=== PATIENT | male | born 1980 | race Caucasian/White ===

== ENCOUNTER 2023-12-28 15:07 | Outpatient (AMB) | payer OTHER, SELFPAY ==
--- NOTE | 2023-12-28 15:19 | A.OFFVISCC_ITS ---
Intake Visit Reasons: Intake HPI HPI Intake: Details: Patient presents for follow up Currently prescribed suboxone 16mg daily [facility] [place] urinary retention scheduled appt at [facility] last physical one year ago Results AMB 14 Panel Urine Drug Screen Urine Marijuana (THC) Negative Last Edit by Sadia Acuña RN on 12/28/23 15:32 Urine Cocaine Negative Last Edit by Sadia Acuña RN on 12/28/23 15:32 Urine Morphine Negative Last Edit by Sadia Acuña RN on 12/28/23 15:32 Urine Methamphetamine Negative Last Edit by Sadia Acuña RN on 12/28/23 15:32 Urine Amphetamine Negative Last Edit by Sadia Acuña RN on 12/28/23 15:32 Urine Benzodiazepine Negative Last Edit by Sadia Acuña RN on 12/28/23 15 :32 Urine Barbiturates Negative Last Edit by Sadia Acuña RN on 12/28/23 15:3 2 Urine Methadone Negative Last Edit by Sadia Acuña RN on 12/28/23 15:32 Urine Buprenorphine Positive Last Edit by Sadia Acuña RN on 12/28/23 15: 32 Urine Tricyclic Antidepressant Positive Last Edit by Sadia Acuña RN on 12/28/23 15:32 Urine MDMA Negative Last Edit by Sadia Acuña RN on 12/28/23 15:32 Urine Oxycodone Negative Last Edit by Sadia Acuña RN on 12/28/23 15:32 Urine Phencyclidine Negative Last Edit by Sadia Acuña RN on 12/28/23 15: 32 Urine Propoxyphene Negative Last Edit by Sadia Acuña RN on 12/28/23 15:3 2
--- NOTE | 2023-12-28 15:19 | MHC.AM.SUB ---
Intake Visit Reasons: Intake HPI HPI Intake: Details: Patient presents for follow up [facility] [place] [facility] scheduled appt at [facility] last physical one year ago Results AMB 14 Panel Urine Drug Screen Urine Marijuana (THC) Negative Last Edit by Sadia Acuña RN on 12/28/23 15:32 Urine Cocaine Negative Last Edit by Sadia Acuña RN on 12/28/23 15:32 Urine Morphine Negative Last Edit by Sadia Acuña RN on 12/28/23 15:32 Urine Methamphetamine Negative Last Edit by Sadia Acuña RN on 12/28/23 15:32 Urine Amphetamine Negative Last Edit by Sadia Acuña RN on 12/28/23 15:32 Urine Benzodiazepine Negative Last Edit by Sadia Acuña RN on 12/28/23 15:32 Urine Barbiturates Negative Last Edit by Sadia Acuña RN on 12/28/23 15:32 Urine Methadone Negative Last Edit by Sadia Acuña RN on 12/28/23 15:32 Urine Buprenorphine Positive Last Edit by Sadia Acuña RN on 12/28/23 15:32 Urine Tricyclic Antidepressant Positive Last Edit by Sadia Acuña RN on 12/28/23 15:32 Urine MDMA Negative Last Edit by Sadia Acuña RN on 12/28/23 15:32 Urine Oxycodone Negative Last Edit by Sadia Acuña RN on 12/28/23 15:32 Urine Phencyclidine Negative Last Edit by Sadia Acuña RN on 12/28/23 15:32 Urine Propoxyphene Negative Last Edit by Sadia Acuña RN on 12/28/23 15:32
== END 2023-12-28 15:41 | disposition home or self-care (01) ==
PROVIDERS: Visit Provider Nurse Practitioner Psychiatric/Mental Health
DX: Z51.81 Encounter for therapeutic drug level monitoring (principal)

== ENCOUNTER → 2023-12-28 15:07 | Outpatient (BNVA) | payer OTHER, SELFPAY | PROVIDERS: Visit Provider Nurse Practitioner Psychiatric/Mental Health | DX: Z51.81 Encounter for therapeutic drug level monitoring (principal); Z79.899 Other long term (current) drug therapy | CPT/HCPCS: 80305 ==

== ENCOUNTER 2024-01-24 15:29 | Outpatient (AMB) | payer OTHER, SELFPAY ==
--- NOTE | 2024-01-24 16:23 | A.OFFVISCC_ITS ---
Intake Visit Reasons: MAT/Sublocade Injection Allergies No Known Allergies Allergy (Verified 12/28/23 15:37) HPI HPI MAT/Sublocade Injection: Details: Patient presents for follow up and 1st Sublocade injection No issues with films Questions answered, risks reviewed Review of Systems Const Reports as per HPI Physical Exam Const General: cooperative, healthy appearing and well groomed Nutritional Appearance: average body habitus Orientation/consciousness: patient oriented x3 Limitations: no limitations Neuro General: patient oriented x3 Office Meds Sublocade 300 mg/1.5 mL solution,extended release subcutaneous syringe Performing Provider: Linda Plata CNP Performing Location: [facility] Administered by: Sadia Acuña RN on 01/24/24 14:00 Dose Route Admin Location Dispensed Lot Number Expiration Date [facility] Pumper Gauger 300 mg subcut RLQ 1.5 mL [id number] 10/20/24 [address]-5 [employer]. Assessment & Plan Assessment & Plan (1) Opioid use disorder, severe, in sustained remission: Code(s): F11.21 - Opioid dependence, in remission Category: Medical Plan: * tolerated injection * follow up 4 weeks Orders: Orders AMB Buprenorphine Injection 01/24/24 F11.90 - Opioid use, unspecified, uncomplicated Medications: Refilled buprenorphine ER (Sublocade) once every 28 days 300 mg (1.5 mL) subcut ONCE 1.5 mL 0RF
== END 2024-01-24 16:26 | disposition home or self-care (01) ==
PROVIDERS: Visit Provider Nurse Practitioner Psychiatric/Mental Health
DX: F11.21 Opioid dependence, in remission (principal)
CPT/HCPCS: 99213

== ENCOUNTER 2024-01-24 15:29 | Outpatient (REF) | payer OTHER, SELFPAY ==
[2024-01-24 17:47] LABS: Alanine Aminotransferase 24 U/L (0-40); Albumin Level 4.5 g/dL (3.5-5.0); Alkaline Phosphatase 105 U/L (39-117); Anion Gap 12 (12-20); Aspartate Amino Transferase 21 U/L (5-37); Bilirubin Direct 0.1 mg/dL (0.0-0.5); Bilirubin Total 0.4 mg/dL (0.0-1.0); Blood Urea Nitrogen 20 mg/dL (9-16); Calcium 9.6 mg/dL (8.4-10.2); Carbon Dioxide 29 mmol/L (22-29); Chloride 104 mmol/L (96-108); Estimated Glomerular Filt Rate > 60; Glucose Random 95 mg/dL (60-115); Potassium 4.6 mmol/L (3.3-5.1); Sodium 140 mmol/L (135-145); Total Protein 7.4 g/dL (6.5-8.0)
[2024-01-25 08:12] LABS: HIV AB/AG Nonreactive (Nonreactive); HIV Num 1 0.06 S/CO (0.00-0.99)
== END 2024-01-24 15:30 | disposition home or self-care (01) ==
LOC: HO.LAB 15:29
PROVIDERS: Visit Provider Nurse Practitioner Psychiatric/Mental Health
DX: F11.21 Opioid dependence, in remission (principal); Z51.81 Encounter for therapeutic drug level monitoring; Z79.899 Other long term (current) drug therapy
CPT/HCPCS: 36415; 80053; 82248; 87389; 96372; Q9992

== ENCOUNTER 2024-02-21 15:08 | Outpatient (AMB) | payer OTHER, SELFPAY ==
--- NOTE | 2024-02-23 08:50 | AM.OFFVISNUR ---
Intake Visit Reasons: Sublocade Injection Allergies No Known Allergies Allergy (Verified 12/28/23 15:37) Nursing Note Patient Presents for sublocade Injection. Current Dose 300mg . Given in the with LUQ no noted or stated complication. Denies any issues with previous injection. Denies symptoms, and denies any break through cravings. Last appt with provider was , will follow up with RN in 4 weeks for injection. Will need to see provider for check in April. Office Meds Sublocade 300 mg/1.5 mL solution,extended release subcutaneous syringe Performing Provider: Linda Plata CNP Performing Location: [facility] Administered by: Sadia Acuña RN on 02/21/24 09:16 Dose Route Admin Location Dispensed Lot Number Expiration Date [facility] Multimedia Artist 300 mg subcut LUQ 1.5 mL [id number] 02/19/25 [address]-7 [employer] Assessment & Plan Assessment & Plan Orders: Orders AMB Buprenorphine Injection 02/21/24 F11.21 - Opioid dependence, in remission Medications: New Sublocade ER (buprenorphine) 300 mg (1.5 mL) subcut ONCE 1.5 mL 0RF NS F11.21 - Opioid dependence, in remission Refilled buprenorphine ER (Sublocade) once every 28 days 300 mg (1.5 mL) subcut ONCE 1.5 mL 0RF
== END 2024-02-21 16:20 | disposition home or self-care (01) ==
DX: F11.21 Opioid dependence, in remission (principal)

== ENCOUNTER → 2024-02-21 15:08 | Outpatient (BNVA) | payer OTHER, SELFPAY | DX: F11.21 Opioid dependence, in remission (principal) | CPT/HCPCS: 96372; Q9992 ==

== ENCOUNTER 2024-03-20 15:31 | Outpatient (AMB) | payer OTHER, SELFPAY ==
--- NOTE | 2024-03-20 16:20 | AM.OFFVISNUR ---
Intake Visit Reasons: Sublocade Injection Allergies No Known Allergies Allergy (Verified 12/28/23 15:37) Nursing Note Patient Presents for sublocade Injection. Current Dose 300 mg. Given in the RLQ with no noted or stated complications. Denies any issues with previous injection. Denies symptoms, and denies any break through cravings. Will follow up with RN in 4 weeks for injection. Patient requested Brixadi, med ordered by provider and will hopefully recieve it at next visit, if not he will get sublocade. Office Meds Sublocade 300 mg/1.5 mL solution,extended release subcutaneous syringe Performing Provider: Linda Plata CNP Performing Location: [facility] Administered by: Sadia Acuña RN on 03/22/24 13:45 Dose Route Admin Location Dispensed Lot Number Expiration Date [facility] Poultry Farmer Meat 300 mg subcut RLQ 1.5 mL [id number] 02/19/25 [address]-6 [employer]. Assessment & Plan Assessment & Plan Orders: Orders AMB Buprenorphine Injection 03/20/24 F11.90 - Opioid use, unspecified, uncomplicated Medications: New Sublocade ER (buprenorphine) 300 mg (1.5 mL) subcut ONCE 1.5 mL 0RF NS F11.90 - Opioid use, unspecified, uncomplicated Refilled buprenorphine ER (Sublocade) once every 28 days 300 mg (1.5 mL) subcut ONCE 1.5 mL 0RF
== END 2024-03-20 16:18 | disposition home or self-care (01) ==
LOC: HO.HCC 15:32
DX: F11.90 Opioid use, unspecified, uncomplicated (principal)

== ENCOUNTER → 2024-03-20 15:31 | Outpatient (BNVA) | payer OTHER, SELFPAY | DX: F11.90 Opioid use, unspecified, uncomplicated (principal) | CPT/HCPCS: 96372; Q9992 ==

== ENCOUNTER 2024-04-17 14:59 | Outpatient (AMB) | payer OTHER, SELFPAY ==
--- NOTE | 2024-04-17 15:07 | AM.OFFVISNUR ---
Intake Visit Reasons: Sublocade Injection Allergies No Known Allergies Allergy (Verified 12/28/23 15:37) Nursing Note Patient Presents for Sublocade Injection. Current Dose 300mg . Given in the LLQ with no noted or stated complications. Denies any issues with previous injection. Denies symptoms, and denies any break through cravings. Will follow up with RN in 4 weeks for injection. Office Meds Sublocade 300 mg/1.5 mL solution,extended release subcutaneous syringe Performing Provider: Linda Plata CNP Performing Location: [facility] Administered by: Sadia Acuña RN on 04/17/24 15:07 Dose Route Admin Location Dispensed Lot Number Expiration Date [facility] Licensing [employer] 300 mg subcut LLQ 1.5 mL [id number] 03/22/25 [address]-6 [employer]. Assessment & Plan Assessment & Plan Orders: Orders AMB Buprenorphine Injection - Patient Supplied 04/17/24 F11.90 - Opioid use, unspecified, uncomplicated Medications: Refilled buprenorphine ER (Sublocade) once every 28 days 300 mg (1.5 mL) subcut ONCE 1.5 mL 0RF
== END 2024-04-17 16:06 | disposition home or self-care (01) ==
DX: F11.90 Opioid use, unspecified, uncomplicated (principal)

== ENCOUNTER → 2024-04-17 14:59 | Outpatient (BNVA) | payer OTHER, SELFPAY | DX: F11.90 Opioid use, unspecified, uncomplicated (principal) | CPT/HCPCS: 96372; Q9992 ==

== ENCOUNTER 2024-05-16 09:26 | Outpatient (AMB) | payer OTHER, SELFPAY ==
--- NOTE | 2024-05-16 09:33 | AM.OFFVISNUR ---
Intake Visit Reasons: Sublocade Injection Allergies No Known Allergies Allergy (Verified 12/28/23 15:37) Nursing Note Patient Presents for sublocade Injection. He arrived alert and oriented x4, in good spirits, smiling when talking in clear/full sentences. Current Dose 300 mg. Given in the LLQ with no noted or stated complications. Denies any issues with previous injection. Denies symptoms, and denies any break through cravings. Will follow up with RN in 4 weeks for injection. Will need to see provider for check in next visit in May, he verbally understands this. Follow up to workload on 05/14, regarding Brixadi transition. Patient states he was able to get the name and number of insurance law specialist and left a message on their phone. He will keep our office updated. Office Meds Sublocade 300 mg/1.5 mL solution,extended release subcutaneous syringe Performing Provider: Linad Plata CNP Performing Location: [facility] Administered by: Sadia Acuña RN on 05/16/24 10:11 Dose Route Admin Location Dispensed Lot Number Expiration Date [facility] Dining Room Server 300 mg subcut LLQ 1.5 mL [id number] 03/22/25 [address]-5 [employer] Assessment & Plan Assessment & Plan Orders: Orders AMB Buprenorphine Injection Today F11.90 - Opioid use, unspecified, uncomplicated Medications: New Sublocade ER (buprenorphine) 300 mg (1.5 mL) subcut ONCE 1.5 mL 0RF NS F11.90 - Opioid use, unspecified, uncomplicated
== END 2024-05-16 09:42 | disposition home or self-care (01) ==
DX: F11.90 Opioid use, unspecified, uncomplicated (principal)

== ENCOUNTER → 2024-05-16 09:26 | Outpatient (BNVA) | payer OTHER, SELFPAY | DX: F11.90 Opioid use, unspecified, uncomplicated (principal); Z79.899 Other long term (current) drug therapy | CPT/HCPCS: 96372; Q9992 ==

== ENCOUNTER 2024-06-12 14:01 | Outpatient (AMB) | payer OTHER, SELFPAY ==
--- NOTE | 2024-06-12 14:33 | A.OFFVISCC_ITS ---
Vital Signs 06/12/24 14:42 BP 100/70 Blood Pressure Location Lt radial Position Sitting Respiration 19 Pulse 88 Pulse Oximetry (%) 98 Oxygen Delivery Method Room Air Intake Visit Reasons: MAT/ Sublocade Injection Allergies No Known Allergies Allergy (Verified 12/28/23 15:37) HPI HPI MAT/ Sublocade Injection: Details: constipated has been taking laxative senna, miralax, colace, MOM, dulcolax once a week BMs taking Dulcaloax Office Meds Sublocade 100 mg/0.5 mL solution,extended release subcutaneous syringe Performing Provider: Linda Plata CNP Performing Location: [facility] Administered by: Sadia Acuña RN on 06/12/24 14:43 Dose Route Admin Location Dispensed Lot Number Expiration Date [facility] Plant Maintenance Supervisor 100 mg subcut LLQ 0.5 mL [id number] 06/22/25 [address]-2 [employer] Assessment & Plan Assessment & Plan Orders: Orders AMB Buprenorphine Injection Today F11.90 - Opioid use, unspecified, uncomplicat ed
--- NOTE | 2024-06-12 14:33 | MHC.AM.SUB ---
Vital Signs 06/12/24 14:42 BP 100/70 Blood Pressure Location Lt radial Position Sitting Respiration 19 Pulse 88 Pulse Oximetry (%) 98 Oxygen Delivery Method Room Air Intake Visit Reasons: MAT/ Sublocade Injection Allergies No Known Allergies Allergy (Verified 12/28/23 15:37) HPI HPI MAT/ Sublocade Injection: Details: constipated has been taking laxative senna, miralax, colace, MOM, dulcolax once a week BMs taking Dulcaloax Physical Exam Vital Signs: Last Vital Signs Pulse 88 06/12/24 14:42 Resp 19 06/12/24 14:42 BP 100/70 06/12/24 14:42 Pulse Ox 98 06/12/24 14:42 Oxygen Delivery Method Room Air 06/12/24 14:42 Office Meds Sublocade 100 mg/0.5 mL solution,extended release subcutaneous syringe Performing Provider: Linda Plata CNP Performing Location: [facility] Administered by: Sadia Acuña RN on 06/12/24 14:43 Dose Route Admin Location Dispensed Lot Number Expiration Date [facility] Surgeon Partner 100 mg subcut LLQ 0.5 mL [id number] 06/22/25 [address]-3 [employer] Assessment & Plan Assessment & Plan Orders: Orders AMB Buprenorphine Injection 06/12/24 F11.90 - Opioid use, unspecified, uncomplicated
[2024-06-12 14:42] VITALS: BP 100/70; PULSE 88; RESP 19; O2SAT 98
== END 2024-06-12 15:16 | disposition home or self-care (01) ==
PROVIDERS: Visit Provider Nurse Practitioner Psychiatric/Mental Health
DX: F11.90 Opioid use, unspecified, uncomplicated (principal)

== ENCOUNTER → 2024-06-12 14:01 | Outpatient (BNVA) | payer OTHER, SELFPAY | PROVIDERS: Visit Provider Nurse Practitioner Psychiatric/Mental Health | DX: F11.21 Opioid dependence, in remission (principal) | CPT/HCPCS: 96372; Q9991 ==

== ENCOUNTER 2024-07-10 15:06 | Outpatient (AMB) | payer OTHER, SELFPAY ==
[2024-07-10 09:12] VITALS: BP 140/80; PULSE 80; O2SAT 98
--- OUTSIDE RECORDS SUMMARY | 2024-07-10 15:14 | XMS_ITS | Data Portability ---
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 ? ? ?He is happy with that plan. ? ? ?We will see him back at that point. ? ? ?He is really doing well. ? ? ?He is off the pain medications. [email or web address] Not available 11/13/2014 11:41:50 12/11/2014 12/11/2014 We will see how he does. ? ? ?He is going to start therapy to work on motion. ? ? ?I am going to see him back after therapy. ? ? ?He is happy with that plan. ? ? ?Hopefully his motion will improve. [email or web address] Not available 12/14/2014 10:50:31 03/05/2015 03/05/2015 I think he just needs to work with therapy with maybe an injection down the road. ? ? ?He will do therapy and see him back in about six weeks and hopefully get him back to work in two months. ? ? ?Otherwise I am happy with how he is doing and he is happy as well. [email or web address] Not available 03/06/2015 09:56:16 05/20/2015 05/20/2015 At this point he is doing well. ? ? ?We are going to get him back to full duty shortly. ? ? ?I want him to do a little physical therapy first to get his motion better. ? ? ?He has a little bit of a frozen shoulder since the time of surgery. ? ? ?He is going to work on that now at this point. [email or web address] Not available 05/20/2015 15:47:37 06/19/2015 06/19/2015 PLAN: At this point I still want him to go back to full duty. He wants to do that. We will do this on Monday. We will do an MRI to make sure there is no rotator cuff tear. He may just need an injection. We will see him back or I will give him a call. In terms of the pec repair, he is doing extremely well. He is happy with how he is doing from the pec repair. We spent about 15 minutes together with most of it in counseling. ? ? ? [email or web address] Not available 06/25/2015 10:19:02 Plan of Treatment Reminders Order Date Submit Date Provider Last Modified By Organization Details Last Modified Time Details Appointments None recorded. Lab None recorded. Referral physical therapist referral - S/P R pectoralis major repair 10/28/14R Frozen Shoulder 2014 015 [email or web address] Not available 5 05:38:35 physical therapist referral - S/P R pectoralis major repair 10/28/142014 015 [email or web address] Not available 5 09:56:16 physical therapist referral - S/P R pectoralis major repair 10/28/142014 015 [email or web address] Not available 5 10:50:31 Procedures None recorded. Surgeries None recorded. Imaging MRI, shoulder - Right Shoulder MRIr/o R Rotator Cuff TearPlease call patient to schedule, thanks! APPROVED PER ONDINA BOSTON 2015 016 ATHENAFAX [facility]. - Mri, [address] [place] [address], [place], [address], 6 14:41:28 x-ray, shoulder - AP/ GRASHEY/AX ILLARY (if pt unable to do axillary please do [facility]) 2014 015 [email or web address] Not available 5 11:41:50 Medication Orders oxycodone 5 mg tablet 2014 015 [id number], [address], [place], [id number], 12:43:50 Patient TargetsNo targets recorded. Patient InstructionsNo instructions recorded. Reason for Referral S/P R pectoralis major repai r 10/28/14 Referring Physician: Ck Arrieta, Orthopedic Surgery, Encounter Date: 12/11/2014 S/P R pectoralis major repai r 10/28/14 Referring Physician: Ck Arrieta, Orthopedic Surgery, Encounter Date: 03/05/2015 S/P R pectoralis major repai r 10/28/14R Frozen Shoulder Referring Physician: Ck Arrieta, Orthopedic Surgery, Encounter Date: 05/20/2015 Results Created Date Observation Date Name Description Value Unit Range Abnormal Flag Note LastModifiedBy Organization Detail LastModifiedTime 10/29/19 15 10/28/2014 mrsa scree n, PCR @MRSA/mssa by PCR MRSA/M SSA SCREEN RESULT NEGATI VE MRSA AND MSSA SCREEN BY PCR normal Not Available [facility] (Lab) [address] [place], [address], 10/28/2014 08:56:24 10/24/19 15 10/20/2014 MRI, shoul alice No observ ation record ed. [email or web address] Not Available 10/23 17:49:13 10/29/19 15 helder ble shoul alice right No observ ation record ed. [address], [address] 04/29/2015 04:01:03 10/29/19 15 10/28/2014 helder ble shoul alice right Fin al Report EXAM#: [id number] PROCED URE: OR 0032 PORTAB LE SHOULD ER RIGHT Oct 28 2014 12:00P M CLINIC [facility] INDICA TION: POST OP AP R SHOULD ER RESULT S: Compar isons: None FINDIN GS: Suture anchor placem ent within the proxim al humeru s is withou t immedi ate hardwa re compli cation s. Post-s urgica l soft tissue change s are presen t. . . . . \E\ Report ed by : JUNO LANGSTON M.D. On: Oct 28 2014 12:01P Signed by: JUNO LANGSTON M.D. On: Oct 28 2014 12:01P [facility] [address] [place], [address], 04/29/2015 04:01:03 10/29/19 15 helder ble shoul alice right No observ ation record ed. [address], [address] 04/29/2015 04:01:03 Result Notes None recorded. Problems Name Problem SNOMED Code Status Onset Date Resolution Date Notes Provider Name and Address Organization Details Recorded Time Rupture of pectoralis major muscle 728970581 Active Jennifer Lzoa [facility] 5 10:50:31 Shoulder pain 68109665 Active Jennifer devi [facility] 6 10:19:02 Strain of tendon of upper arm 081577960 Active Jennifer Loza [facility] 5 09:56:16 Problem Notes None recorded. Procedures Surgical History Date Name Laterality Status Provider Name and Address Organization Details Recorded Time 10/29/19 15 Orthopaedic Surgery completed Suly Dickens [facility] 12/16/2014 11:51:43 Imaging Results Imaging Date Name Status LastModified by Organiz ation Details LastModified Time 10/20/2014 MRI, shoulder completed [email or web address] Information not available 10/23/2014 17:49:13 10/28/2014 portable shoulder right completed [address], [address] 04/29/2015 04:01:03 10/28/2014 portable shoulder right completed [facility] [address] [place], [address], 04/29/2015 04:01:03 10/28/2014 portable shoulder right completed [address], [address] 04/29/2015 04:01:03 Procedure Notes None recorded. Medical Equipment None Reported. Allergies No known drug allergies Medications Name Sig Start Date Stop Date Status Note LastModified by Organization Details LastModified Time methocarbamo l 500 mg tablet TAKE ONE TABLET BY MOUTH UP TO FOUR TIMES DAILY NEEDED FOR SPASM active Not Available Not Available No t Available clonidine HCl 0.1 mg tablet TAKE 1 TABLET TWICE DAILY. active Not Available Not Available No t Available trazodone 50 mg tablet *WAITING ON PA FROM *TAKE 1 TO 2 TABLETS AT BEDTIME NEEDED FOR INSOMNIA. active Not Available Not Available No t Available doxepin 25 mg capsule TAKE 2 CAPS BY MOUTH AT BEDTIME FOR INSOMNIA active Not Available Not Available No t Available cephalexin 250 mg capsule TAKE ONE CAPSULE BY MOUTH EVERY 6 HOURS FOR 10 DAYS active Not Available Not Available No t Available hydrocodone 5 mg-acetamino phen 325 mg tablet TAKE 1 TABLET BY MOUTH EVERY 6-8 HOURS active Not Available Not Available No t Available olanzapine 5 mg tablet TAKE 1 TABLET DAILY. active Not Available Not Available No t Available acetaminophe n 300 mg-codeine 30 mg tablet TAKE 1-2 TABLET EVERY 6 HOURS NEEDED FOR MODERATE TO SEVERE PAIN active Not Available Not Available Not Available sulfamethoxa zole 800 mg-trimethop rim 160 mg tablet TAKE 1 TABLET EVERY 12 HOURS FOR 10 DAYS active Not Available Not Available No t Available tramadol 50 mg tablet TAKE 1-2 TABLETS BY MOUTHAT BEDTIME NEEDED FOR PAIN active Not Available Not Available No t Available oxycodone-ac etaminophen 5 mg-325 mg tablet take 1 to 2 tablets by mouth every 4 to 6 hours if needed for saulo... (REFER TO PRESCRIPTIO N NOTES). active Not Available Not Available No t Available Motrin 800 mg tablet Take 1 tablet 3 times a day by oral route. active Not Available Not Available No t Available hydromorphon e 2 mg tablet take 1-2tabs PO q4-6hours prn pain active Not Available Not Available No t Available trazodone 100 mg tablet TAKE 1 TABLET BY MOUTH AT BEDTIME active Not Available Not Available No t Available meclizine 25 mg tablet TAKE 1 TABLET 3 TIMES DAILY NEEDED. active Not Available Not Available N ot Available nicotine 21 mg/24 hr daily transdermal patch APPLY 1 PATCH DAILY DIRECTED active Not Available Not Available Not Available omeprazole 20 mg capsule,radha yed release TAKE 2 CAPSULES BY MOUTH ONCE DAILY DIRECTED active Not Available Not Available No t Available diclofenac sodium 75 mg tablet,delay ed release TAKE 1 TABLET BY MOUTH TWICE A DAY active Not Available Not Available No t Available ibuprofen 600 mg tablet TAKE 1 TABLET BY MOUTH EVERY 6 HOURS NEEDED FOR PAIN WITH FOOD active Not Available Not Available No t Available oxycodone-ac etaminophen 7.5 mg-325 mg tablet TAKE 1 TABLET EVERY 6 HOURS NEEDED FOR PAIN active Not Available Not Available No t Available zolpidem 10 mg tablet TAKE 1 TABLET AT BEDTIME NEEDED active Not Available Not Available No t Available propranolol 20 mg tablet TAKE 1 TABLET THREE TIMES A DAY active Not Available Not Available No t Available ketoconazole 2 % topical cream APPLY TO AFFECTED AREA TWICE A DAY UNTIL RESOLVED active Not Available Not Available No t Available fluoxetine 20 mg capsule TAKE ONE CAPSULE BY MOUTH TWICE A DAY active Not Available Not Available No t Available diazepam 5 mg tablet TAKE ONE TABLET BY MOUTH EVERY 8 HOURS active Not Available Not Available No t Available amoxicillin 875 mg-potassium clavulanate 125 mg tablet TAKE 1 TAB BY MOUTH 2 TIMES A DAY active Not Available Not Available Not Available nabumetone 500 mg tablet TAKE 1 OR 2 TABLETS BY MOUTH EVERY 12 HOURS HOURS AFTER MEALS NEEDED PAIN active Not Available Not Available Not Available nicotine 7 mg/24 hr daily transdermal patch APPLY 1 PATCH DAILY DIRECTED active Not Available Not Available Not Available oxycodone 5 mg tablet TAKE 1 TABLET BY MOUTH EVERY 12 HOURS NEEDED active Not Available Not Available No t Available duloxetine 30 mg capsule,radha yed release TAKE ONE CAPSULE BY MOUTH IN THE EVENING active Not Available Not Available Not Available duloxetine 60 mg capsule,radha yed release TAKE 1 CAPSULE DAILY. active Not Available Not Available No t Available Aleve active Not Available Not Availa ble Not Available clonidine active Not Available Not Julita ilable Not Available Percocet active Not Available Not Avai lable Not Available Prilosec active Not Available Not Avai lable Not Available Cymbalta active Not Available Not Avai lable Not Available ProAir HFA 90 mcg/actuatio n aerosol inhaler INHALE 2 PUFFS EVERY 4 HOURS NEEDED FOR COUGH AND WHEEZE. active Not Available Not Available No t Available Voltaren 1 % topical gel APPLY TO AFFECTED AREAS SPARINGLY ONCE A DAY active Not Available Not Available N ot Available Vitals Date Recorded Body height Body mass index (BMI) Body weight Provider Name and Address Organization Details Last Updated DateTime 11/13/2014 175.26 cm 23.6 kg/m2 68698.7792 g Suly Dickens [facility] 11/13/2014 10:34:15 Date Recorded Body height Body mass index (BMI) Body weight Provider Name and Address Organization Details Last Updated DateTime 12/11/2014 175.26 cm 23.6 kg/m2 06631.7792 g Ryan Dickey [facility] 12/11/2014 12:59:42 Date Recorded Body height Body mass index (BMI) Body weight Provider Name and Address Organization Details Last Updated DateTime 03/05/2015 175.26 cm 21.4 kg/m2 60265.21521 g Prosper Solis [facility] 03/05/2015 12:43:50 Date Recorded Body weight Body mass index (BMI) Body height Provider Name and Address Organization Details Last Updated DateTime 05/20/2015 85473.59845 g 25.8 kg/m2 175.26 cm [facility] 05/20/2015 09:17:54 Date Recorded Body mass index (BMI) Body weight Body height Provider Name and Address Organization Details Last Updated DateTime 06/19/2015 25.8 kg/m2 65608.09991 g 175.26 cm Ryan [facility] 06/19/2015 11:48:21 Social History Question Answer Notes LastModified by Organizat ion Details LastModified Time Tobacco Smoking Status Current [facility] 10/23/2014 17:10:13 Auto Related Injury? 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 No Information not available 03/05/2015 Work Related Injury? Yes Information not available 03/05/2015 Sex: Unknown Functional Status Question Answer Note LastModified by Organization D etails LastModified Time What is your exercise level? None Information not available 03/05/2015 Mental Status None recorded. Family History Nothing Reported. Medical History Condition Response Blood Clots / Phlebitis N HIV or AIDS N Heart Problems N Depression or Anxiety Y High Blood Pressure N Irregular Heartbeat N Emphysema / Chronic Bronchitis N Any Other Significant Medical Issues N Reaction to General/Local Anesthesia N Weight Gain / Loss N Hepatitis / Jaundice Y Kidney / Bladder Infections N Diabetes N Bleeding Disorder N Hearing Loss N Angina, Heart Failure or Attack N Night Sweats N Seizures / Epilepsy N Osteoarthritis / Rheumatoid arthritis / Other N Cancer N Stroke N Chemical Dependency / Alcoholism N Ulcer / Stomach Bleeding / Indigestion N Visual Loss or Glaucoma N Psoriasis / Skin Rash N Thyroid Disorder N Heart Disease N Asthma / Shortness of Breath / 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 Pulmonary Embolism N Past Encounters Encounter ID Performer Location Encounter Start Date Encounter Closed Date Diagnosis/Indication Diagnosis SNOMED-CT Code Diagnosis ICD10 Code Diagnosis Note [id number] Iona Aguirre [facility] [address] [place] [id number] 10/23/2014 16:36:01 10/23/2014 17:42:38 Rupture of pectoralis major muscle [id number] [facility] [address] [place] [phone] 11/13/2014 09:57:50 11/13/2014 11:27:50 Shoulder pain 40920779 Rupture of pectoralis major muscle 895949435 [id number] Prosper Solis [facility] Office [address] [place] [id number] 12/11/2014 12:53:08 12/11/2014 13:16:26 Rupture of pectoralis major muscle 600909064 [id number] CK ARRIETA MD [facility] [address] [place] [id number] 03/05/2015 12:28:54 03/05/2015 13:10:50 Shoulder pain 70484040 M25.511 Strain of tendon of upper arm 612999260 S46.811D [id number] CK ARRIETA MD [facility] [address] [place] [id number] 05/20/2015 09:06:10 05/20/2015 09:54:16 Shoulder pain 60550160 M25.511 [id number] CK ARRIETA MD [facility] Office [address] [place] [address] [address] [place] [address] 06/19/2015 11:25:26 06/19/2015 12:23:36 Shoulder pain 15303160 M25.511 Health Concerns Section Related Observation LastModified by Organization Detai ls LastModified Time None Recorded Concern Status LastModified by Organization Details LastModified Time None Recorded Advance Directives Directive None Recorded Payers Encounter Date Sequence Insurance Name Policy Number Policy Gomes Covered Member ID Gomes Member ID Guarantor Name 11/13/2014 [employer] 12/11/2014 [employer] 03/05/2015 [employer] 05/20/2015 [employer] - [facility] [employer] 06/19/2015 [employer] - [facility] [employer] Notes Date Note Type Note Provider Name and Address Organization Details Recorded Time 11/13/2014 text/html HPI He is status post a pectoralis major repair. He is doing great.? CK ARRIETA MD [address] [place] [address], [phone], [facility] 11/13/2014 12:55:00 12/11/2014 text/html HPI He is six weeks out from a pectoralis major repair. He is doing okay. He is in a little more pain than I would like.? CK ARRIETA MD [address] [place] [address], [phone], [facility] 12/16/2014 11:03:45 03/05/2015 text/html HPI He is status post a pectoralis major repair in October. His pectoralis repair looks great. He is still having some pain posteriorly which I think is from the retractors. He has not been able to do therapy and he is stiff, so I think he essentially has some mild frozen shoulder.? CK ARRIETA MD [address] [place] [address], [phone], [facility] 03/09/2015 08:50:38 05/20/2015 text/html HPI The patient had a pectoralis major repair back in October. He is doing great.? CK ARRIETA MD [address] [place] [address], [phone], [facility] 05/21/2015 05:41:23 06/19/2015 text/html HPI HISTORY: The patient is well known to me. I did a pectoralis major repair on him about a year ago. He has done really well from that but now has a new injury. It just started a few days ago at work. It sounds like impingement. He has some pain in his shoulder. It is getting a little bit better. It is not related to the pectoralis major issue. He feels like it has always been there from the original injury and just flared up recently. That is probably the case. But we have to rule out things like rotator cuff injury because he did have a big injury initially.? CK ARRIETA MD [address] [place] [address], [phone], [facility] 06/25/2015 10:29:31
--- OUTSIDE RECORDS SUMMARY | 2024-07-10 15:14 | XMS_ITS | Clinical Summary ---
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 cloNIDine (CATAPRES) 0.2 mg tablet Take 0.2 mg by mouth 2 times a day. Active busPIRone (BUSPAR) 10 mg tablet Take 10 mg by mouth 3 times a day. 2 Active albuterol (PROAIR HFA,VENTOLIN HFA) 90 mcg inhaler INHALE 2 PUFFS BY MOUTH EVERY 6 HOURS NEEDED FOR WHEEZE/SHORTNESS OF BREATH. SCHEDULE MD APPT 18 g 2 3 Active omeprazole (PriLOSEC) 40 mg capsule Take 1 capsule (40 mg total) by mouth once a day. 90 capsule 3 4 Active amitriptyline (ELAVIL) 150 mg tablet Take 1 tablet (150 mg total) by mouth nightly. 90 tablet 4 Active tamsulosin (FLOMAX) 0.4 mg capsule TAKE 1 CAPSULE (0.4 MG TOTAL) BY MOUTH EVERY DAY 90 capsule 4 Active buprenorphine- naloxone (SUBOXONE) 8-[address] 1 Film (8 mg of buprenorphine total) under the tongue every 12 hours for 28 days. 56 Film 4 Active atorvastatin (LIPITOR) 40 mg tablet TAKE 1 TABLET BY MOUTH EVERY DAY AT NIGHT 90 tablet 4 Active Active Problems Patient Care Coordination No te Formatting of this note migh t be different from the original. MAT CC Note TOMASZ 11/08/23 UDS: 11/08/23 Pending: none CB PREFERS TO FOLLOW Problem Noted Date Diagnosed Date Other hyperlipidemia 02/01/2022 Fatigue 12/01/2021 Overview (12/01/2021): C/o fatigue since sobriety 03/23/19. Feels tired throughout the day. Wakes unrefreshed, Up at 4:30 am for work. Has MICHELLE. Didn't tolerate CPAP. Has fallen asleep while driving on 1 occasion this week. Has not bee sleeping well. Brother .. Assessment & Plan (12/01/2021 12:23 PM EDT): ECG NSR, vent rate 68, No ST or T changes. Likely d/t untreated MICHELLE. Discussed effects untreated MICHELLE. Advised Cannot drive until evaluation/treatment. Need for tetanus booster 12/01/2021 Preventative health care 12/01/2021 Complex sleep apnea syndrome 11/25/2021 Hypersomnia 11/25/2021 Overview (11/25/2021): Concerning degree of daytime sleepiness Causes: Insufficient total sleep time on work days Untreated sleep disordered breathing Sedating side effects of medications prescribed for management of anxiety Assessment & Plan (11/25/2021 4:35 PM EDT): Concerning degree of daytime sleepiness Causes: Insufficient total sleep time on work days Untreated sleep disordered breathing Sedating side effects of medications prescribed for management of anxiety Reviewed risks of drowsy driving and interaction between suboxone/benzos/gabapentin; Reviewed the timing of his meds relative to sleep wake schedule. Ideally clonidine, and sedating meds in the evening and not in the morning. One can habituate to the sedating side effects of suboxone but the changes in breathing persist. Try to increase total sleep time, ?do paper work in evening rather than having to arrive at work an hour earlier. Reviewed risks of drowsy driving, should not drive if sleepy or sedated from med. MICHELLE (obstructive sleep apnea) 11/11/2021 Overview (04/30/2022): PSG [place] 06/20/2012 (wt 210 lbs) Mild AHI 8, RDI 11, 86% CPAP titration 08/01/2012 CPAP 5, Quattro FFM, +central apnea on CPAP Didn't tolerate HST 11/29/2021 (wt 198 lbs; on clonazepam, gabapentin, clonidine, suboxone) moderate, AHI 22, 79% Airsense-11 Auto-CPAP 6-14, EPR 2, N30i nasal mask, [facility] (requested urgent set up) 02/2022; try N30 6-9.8, EPR 2 04/2022: not compliant, anxious, mask fitting Assessment & Plan (04/30/2022 6:25 PM EST): Moderate MICHELLE, AHI 22, 79%; effectively treated when he wears CPAP and provides benefit. Barrier to compliance: anxiety;insomnia. Reviewed desensitizations; sent rx for other mask options/fitting. Would continue CPAP at current settings. Smoking cessation. [employer] documentation. Assessment & Plan (03/02/2022 8:11 PM EDT): Moderate MICHELLE, AHI 22 with oxygen desaturation to a jo of 79%; reviewed sleep study, current compliance data, and the operation/maintenance of the equipment (2021, 216 hours) in detail. Effectively treated when he wears it. The first 21 nights were excellent and no signs of central apnea. Barriers to compliance: mask; pressure; so I adjusted settings to 6-9.8, EPR 2; adjusted climate settings; contacted [facility] for mask fitting. I'm impressed by his use/benefit/symptomatic improvement over the first 21 nights; suspect seasonal changes in humidity, anxiety/motivation are surmountable barriers to compliance. He is willing to continue CPAP. Reviewed [employer] documentation Assessment & Plan (12/01/2021 12:09 PM EDT): Has daytime drowsiness, Referred to Pulmonary for re-eval.Discussed effects of untreated MICHELLE, including heart disease Stressed the importance of treatment. Assessment & Plan (11/25/2021 4:02 PM EDT): High clinical suspicion for MICHELLE, also at risk for central/complex sleep apnea given suboxone. Clonazepam can exacerbate obstructive events, gabapentin can contribute to to hypoventilation and suboxone can cause central/complex sleep apnea. Excessive daytime sleepiness likely due to a combination of insufficient sleep time on work days, untreated sleep disordered breathing and sedating side effects from several of the meds prescribed for anxiety. He seemed fairly medicated today. Reviewed pathophysiology of obstructive and central apnea secondary to opioids, diagnostic and treatment options. Ordered type III limited channel home sleep study for night of 11/29/2021 through [employer]. He agrees to proceed, submitted prior authorization and reviewed process. Will start with CPAP but he may need ASV. Encouraged him to increase sleep time, avoid screen use at night. Cyst of skin 03/23/2021 Assessment & Plan (03/23/2021 11:31 AM EDT): Difficult to assess the. The cyst appears to be pea-sized and light-colored. There are no signs of acute infection at this time. The cyst has been present for over a year and is not draining on its own. Advised patient he will likely require incision and drainage. 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 He will call sooner for any acute worsening. Cigarette nicotine dependence without complicati on 03/23/2019 Assessment & Plan (12/01/2021 1:23 PM EDT): Recommend smoking cessation. Reviewed smoking cessation aides. Assessment & Plan (03/26/2019 11:33 AM EST): Patient is a pack per day smoker of cigarettes. Smoking cessation encouraged. Nicotine patch ordered while admitted. Assessment & Plan (03/23/2019 7:58 AM EDT): Patient is a pack per day smoker of cigarettes. - Smoking cessation encouraged - Nicotine patch ordered while admitted Polysubstance dependence inc luding opioid type drug, episodic abuse 03/23/2019 Overview (12/01/2021): H/o IV heroin use disorder severe , crack cocaine use disorder severe, generalized anxiety disorder, question of depression. Currently working with [facility] at [facility] in [place], [place]. In remission on suboxone. Assessment & Plan (04/25/2019 11:12 AM EST): Doing well on Suboxone. He will continue to follow-up with the clinic here on the current dosage Assessment & Plan (04/05/2019 11:21 AM EST): Suboxone to be started in the near future. He feels that he is in a safe place currently and as long as that he is with his father that he is unlikely to use. He would like to stay out of the [facility] as he knows he will be at risk of these in that region Assessment & Plan (03/26/2019 11:37 AM EST): Patient with heroin abuse, benzodiazepine abuse, as well as crack cocaine abuse. Reviewing Dr. Pinon's notes, it appears that patient had a period of sobriety from 2014 until recently in 2019. Patient states that he last used heroin and benzodiazepines on 03/22/2019, and he used crack cocaine last on approximately March 18 or March 19, 2019. Patient has checked himself into [facility] and is very concerned about his detoxing. He is also very concerned about being dope sick. He does want to get out of the hospital as soon as possible as he will not be actively detoxed while here. Patient at first seemed skeptical, but then agreed to seeing addiction psychiatry, especially if they can provide him with medication to further help him in his detox. The patient, paperwork from [facility] was supposed to be sent to the ED, however the only paperwork available is a brief transfer document. Urine toxicology positive for barbiturate, cocaine, and codeine. Addiction psychiatry consult. Continue clonidine 0.1 mg 3 times daily To offset benzo withdrawal will order clonazepam 0.5 mg 3 times daily for 1 day, and then 0.5 mg twice daily for 2 days (COMPLETED). Assessment & Plan (03/23/2019 8:08 AM EDT): Patient with heroin abuse, benzodiazepine abuse, as well as crack cocaine abuse. Reviewing Dr. Pinon's notes, it appears that patient had a period of sobriety from 2014 until recently in 2019. Patient states that he last used heroin and benzodiazepines on 03/22/2019, and he used crack cocaine last on approximately March 18 or March 19, 2019. Patient has checked himself into [facility] and is very concerned about his detoxing. He is also very concerned about being dope sick. He does want to get out of the hospital as soon as possible as he will not be actively detoxed while here. Patient at first seemed skeptical, but then agreed to seeing addiction psychiatry, especially if they can provide him with medication to further help him in his detox. The patient, paperwork from [facility] was supposed to be sent to the ED, however the only paperwork available is a brief transfer document. -Follow-up urine tox -Addiction psychiatry consult. Patient admitted on a Monday, but will page MIND pager to see if they will see patient. It is unclear if given need for pain meds, as well as recent heroin use, if patient would be an appropriate candidate for suboxone. -Continue clonidine 0.1 mg 3 times daily -Patient has had prescriptions for several benzos. He was recently had a prescription for clonazepam filled on February 21 as well as a prescription for Xanax filled on February 25. He states that both of these prescriptions were gone within 6 days. He has still been taking benzos despite these prescriptions being used up early prior to their intended date. -To offset benzo withdrawal will order clonazepam 0.5 mg 3 times daily for 1 day, and then 0.5 mg twice daily for 2 days. Additional dosing per primary team and/or per addiction psychiatry recommendations. Immune to hepatitis A 12/14/2018 Immune to hepatitis B 12/14/2018 Internal hemorrhoids 06/29/2018 Acute bilateral low back pain without sciatica 0 06/15/2018 Overview (12/01/2021): Random sharp lower back pain when walking, feels like leg going give out Assessment & Plan (12/01/2021 1:27 PM EDT): -ice, robaxin, refer Physical therapy. Condyloma acuminatum 08/24/2016 Overview (12/01/2021): Previously had resection. Has become bothersome Assessment & Plan (12/01/2021 12:30 PM EDT): Referred to colorectal surgeon Dr. Fraser Assessment & Plan (08/05/2020 5:26 PM EDT): Had major issues previously with resection but admits to still having some issues. Advised to follow-up with colorectal surgery as these could become cancerous Assessment & Plan (06/29/2018 11:53 AM EST): Patient is a 37-year-old male with a history of genital warts who presents as a referral from his primary care provider for now anal warts. He has not previously had these treated. On exam there are multiple condyloma's in the perianal area. On TERRY there does not appear to be condyloma internally. He was noted to have internal hemorrhoids. Plan will be to schedule the patient for removal of the anal warts as well as rectal exam under anesthesia for his internal hemorrhoids, which will possibly be banded or removed at that time. Risks and benefits of surgery were discussed and his questions were answered. He will be called by the office with an appointment for the procedure. We would recommend follow up with urology for his genital warts if they continue to be unsuccessfully treated by his PCP Of note the patient would like to avoid narcotic pain medication after surgery as he has a history of IV drug use and has been sober without drugs or alcohol for the last 3 years. Assessment & Plan (06/26/2018 5:26 PM EST): Has anal lesions as well at this point. Refer to colorectal surgery for further evaluation and treatment. He also likely has internal hemorrhoids which can be evaluated in the setting as well. Insomnia 05/06/2015 Assessment & Plan (06/28/2021 1:55 PM EST): As noted above, I discussed strategies for working through medication adjustments with his psychiatrist and the need to be open to newer medications and thinks to try outside of short acting medications. Continue amitriptyline for sleep for now Tremor 04/17/2015 Asthma 03/19/2012 Chronic viral hepatitis C 06/16/2011 Overview (12/01/2021): Per pt failed tx with Harvoni 201412/14/18 VL >2 million Genotype 3 Fibrosis stage F1-F2 Liver u/s 01/30/19 - steatosis, no focal lesion Plan - start Epclusa + ribavirin x 12 weeks, expected week of 02/03 Completed treatement at [facility] ID Dr. Eaton with Mavyret 2019. Assessment & Plan (08/05/2020 5:26 PM EDT): [place], advised follow-up with [facility] regarding this for further treatment Assessment & Plan (03/26/2019 11:33 AM EST): Patient was diagnosed with hepatitis C back in 2014. Most recent viral load is >2 million. Per ID CORDELL, patient is genotype 3 and has evidence of steatosis on liver US from January 2019. He received Harvoni, however failed treatment. He recently was started on Vosevi, 1 pill daily for a planned course of 12 weeks. Patient states that he started this medication, but was unclear as to how often he was supposed to take it. Patient also states that as he is homeless he has lost the bottle of medication, and since being in [facility] he has not received any of this medication. Given patient's labs in continuing this medication, there is concern he may have already failed treatment. Patient has been inconsistent with taking his meds so will hold his Vosevi and encourage him to follow up as outpatient. Assessment & Plan (03/23/2019 8:02 AM EDT): Patient was diagnosed with hepatitis C back in 2014. Most recent viral load is >2 million. Per ID CORDELL, patient is genotype 3 and has evidence of steatosis on liver US from January 2019. He received Harvoni, however failed treatment. He recently was started on Vosevi, 1 pill daily for a planned course of 12 weeks. Patient states that he started this medication, but was unclear as to how often he was supposed to take it. Patient also states that as he is homeless he has lost the bottle of medication, and since being in [facility] he has not received any of this medication. Given patient's labs in continuing this medication, there is concern he may have already failed treatment. - Due to patient's non-compliance, will enrique Mcguire - Outpatient follow-up Assessment & Plan (12/05/2018 5:32 PM EDT): Treated with Harvoni, but apparently was not effective. Will refer to infectious disease for further assistance with other medications Assessment & Plan (06/26/2018 4:56 PM EST): Failed harvoni. Will refer to ID for evaluation of other treatment options. Assessment & Plan (08/28/2017 5:44 PM EDT): Will check his LFTs. He does not feel it is a good time to be able to restart Harvoni but will need to keep this on the greater screen for the future. Anxiety 03/21/2010 Assessment & Plan (08/05/2020 5:25 PM EDT): Poorly controlled. Is not under well with multiple medications. Unfortunately is a difficulty establishing with psychiatry. Currently using benzodiazepines with good effect, although I have had concerns about going down this road in the past. However, probably appropriate that we at least manage his usage to keep this in check and after discussions with his Suboxone provider will be using a small amount of alprazolam for period of time until we can get better psychiatric care to control his anxiety. The patient and I discussed the risks of using benzodiazepines with Suboxone and also concerns regarding his substance abuse history, but poorly treated anxiety will put him at substantial risk of relapse as well. Will monitor carefully during this time Assessment & Plan (04/25/2019 11:12 AM EST): Things seem to be improving. Reviewed the recommendations from psychiatry. Will be started gabapentin and will also increase his clonidine as suggested. We will follow-up with him in a few months, he does have a follow-up with psychiatry in about a month as well Assessment & Plan (03/26/2019 11:27 AM EST): Patient with a history of anxiety and depression. He has been prescribed amitriptyline 100 mg nightly as well as Cymbalta 60 mg daily. He has not been taking these medications consistently prior to admission. Patient has been prescribed benzodiazepines by both his PCP as well as a new psychiatrist that patient states is from [facility] in [place], [place]. It is unclear if patient means [facility], as this office does have a [place] location. An Internet search did not reveal location for a [facility]. Patient was prescribed a 30-day supply of clonazepam 0.5 mg by his PCP on February 21. Patient was then prescribed Xanax 0.5 mg on February 25. Patient states that he used all of the prescribed benzodiazepines within 6 days, and has been taking benzodiazepines that are not prescribed to him in the interim. He notes that he has anxiety, but no longer wants to be on benzodiazepines as he acknowledges difficulty staying sober while using this medication. His clonazepam has been tapered down and seems to be doing OK at this time. Addiction psych evaluation. Assessment & Plan (03/23/2019 8:20 AM EDT): Patient with a history of anxiety and depression. He has been prescribed amitriptyline 100 mg nightly as well as Cymbalta 60 mg daily. He has not been taking these medications consistently prior to admission. Patient has been prescribed benzodiazepines by both his PCP as well as a new psychiatrist that patient states is from [facility] in [place], [place]. It is unclear if patient means [facility], as this office does have a [place] location. An Internet search did not reveal a was for location for a [facility]. Patient was prescribed a 30-day supply of clonazepam 0.5 mg by his PCP on February 21. Patient was then prescribed Xanax 0.5 mg on February 25. Patient states that he used all of the prescribed benzodiazepines within 6 days, and has been taking benzodiazepines that are not prescribed to him in the interim. He notes that he has anxiety, but no longer wants to be on benzodiazepines as he acknowledges difficulty staying sober while using this medication. - Benzo taper as described elsewhere to avoid withdrawal - Patient would benefit from continued outpatient management of his anxiety. Unclear if inpatient consultation would be of any benefit. Assessment & Plan (12/05/2018 5:31 PM EDT): Although I am concerned about this regimen, will continue with lorazepam for now. May need to consider drug testing. We will try to get him into psychiatry which I think would be a big benefit to him in terms of controlling his anxiety enough to help reduce his risk of relapse. Continue his other medications for now. Resolved Problems Problem Noted Date Diagnosed Date Resolved Date Cough 03/23/2021 12/01/2021 Assessment & Plan (03/23/2021 11:29 AM EDT): Discussed symptoms with patient in detail. Recommend patient get tested for COVID-19. Patient is unable to present to [facility] but will seek testing at local pharmacy. Symptoms are likely related to bronchitis but I cannot rule out pneumonia at this time without physical exam. As patient is a smoker and has a history of asthma I am also more concerned. We will treat empirically with oral azithromycin Z-Liborio. We will also resend in albuterol inhaler for patient to begin using as needed. He should rest, increase oral hydration and monitor symptoms closely. If symptoms persist or worsen in any way he will contact the clinic. Suspected COVID-19 virus infection 09/20/2020 06/28/2021 Assessment & Plan (09/20/2020 1:23 PM EDT): Patient has a variety of symptoms that may be viral in nature. Patient has not yet received COVID-19 testing, feel that it is extremely important at this time. However patient is having slightly worse respiratory symptoms including increased shortness of breath and chest tightness. Patient notes that this resolves when he uses his rescue inhaler, although the frequency is increased. Given that patient is currently at approximately day 7 of symptoms, would recommend more emergent evaluation. Would recommend COVID-19 PCR test and chest x-ray. Discussed at length with patient. Patient agreeable with plan. PLAN -After discussion patient determined that [facility] emergency department would be the best location for patient given patient's home location. This [employer]ER called over report to ED, also updated on-call provider (Dr. Oreilly). Routine general medical exam ination at [facility] 08/05/2020 11/25/2021 Assessment & Plan (08/05/2020 5:24 PM EDT): Smoking cessation strongly advised. He is staying active. Discussed healthy diet. Not due for any cancer screening. Discussed Covid vaccination Cellulitis 03/23/2019 04/25/2019 Assessment & Plan (03/26/2019 12:12 PM EST): Patient with a history of IV drug abuse. In a week prior to admission he has injected both heroin and crack cocaine. On March 18 or March 19 patient injected crack cocaine into the lateral aspect of his right foot. Monday morning patient noted increased pain, swelling, and redness of his right foot. He states that he initially presented to [facility] was prescribed an oral antibiotic. He cannot recall the name of this antibiotic and he never picked up the antibiotic. Patient entered [facility] on Thursday 03/22 to undergo treatment for his polysubstance abuse. He was sent from there due to to his symptoms as well as the swelling, pain, and redness of his right foot. Patient denied fevers and has been afebrile. Vital signs stable save for brief tachycardia to 102 (could have been pain related). Patient is also without leukocytosis. An x-ray of the right ankle and foot was obtained and was negative for any fracture, dislocation, or osseous involvement. Significant soft tissue swelling of the forefoot was appreciated. Patient with exquisite tenderness over the lateral aspect of the right foot, and patient was unable to ambulate to the bathroom to urinate given pain with weightbearing; he required being wheeled to the bathroom in a wheelchair to use the urinal. MRSA nasal swab negative, so Vancomycin stopped. MRI does not show osteo and no clear abscess formation either. Continues to show improvement daily Continue with Cefazolin 1 g q8 hours likely for another day. Will switch to augmentin on discharge. Pain control with oxycodone 5 mg q4 hour PRN moderate pain and 10 mg q4 hour PRN severe pain. Assessment & Plan (03/23/2019 8:20 AM EDT): Patient with a history of IV drug abuse. In a week prior to admission he has injected both heroin and crack cocaine. On March 18 or March 19 patient injected crack cocaine into the lateral aspect of his right foot. Monday morning patient noted increased pain, swelling, and redness of his right foot. He states that he initially presented to [facility] was prescribed an oral antibiotic. He cannot recall the name of this antibiotic and he never picked up the antibiotic. Patient entered [facility] on Thursday 03/22 to undergo treatment for his polysubstance abuse. [facility] was [facility] due to to his symptoms as well as the swelling, pain, and redness of his right foot. Patient denies fevers and in the ED he has been afebrile. Vital signs stable save for brief tachycardia to 102 (could have been pain related). Patient is also without leukocytosis. An x-ray of the right ankle and foot was obtained and was negative for any fracture, dislocation, or osseous involvement. Significant soft tissue swelling of the forefoot was appreciated. Patient with exquisite tenderness over the lateral aspect of the right foot, and patient was unable to ambulate to the bathroom to urinate given pain with weightbearing; he required being wheeled to the bathroom in a wheelchair to use the urinal. - MRSA nasal PCR - Vancomycin 1750 mg q12 - Vanco trough prior to 4th dose - Cefazolin 1g q8 hours - Outline affected area and monitor for extension beyond demarcation - MRI ordered to further assess for abscess vs possible osteo - Pain control with oxycodone 5 mg q4 hour PRN moderate pain and 10 mg q4 hour PRN severe pain - Monitor pain control as patient is not opiate naive and tailor regimen as needed Hypokalemia 03/23/2019 03/26/2019 Assessment & Plan (03/25/2019 9:14 PM EST): Patient with hypokalemia to 3.2 on admission as well as hyponatremia to 132. Patient does endorse that prior to admission he had not been eating much. Could be nutritional in nature. Patient was repleted in the emergency department. - Continue to replete as needed Assessment & Plan (03/23/2019 7:57 AM EDT): Patient with hypokalemia to 3.2 on admission as well as hyponatremia to 132. Patient does endorse that prior to admission he had not been eating much. Could be nutritional in nature. Patient was repleted in the emergency department. - BMP at 10 AM - Continue to replete as needed Urinary retention 03/23/2019 03/23/2021 Assessment & Plan (03/26/2019 11:39 AM EST): Patient has been seen by his PCP and urology within the past month regarding urinary retention. Apparently the patient's urinary retention was such that at a visit to [place] he required Mckinney catheter placement. Per urology's note, patient has been experiencing a feeling of incomplete bladder emptying for approximately 8 months. He was started on tamsulosin 0.4 mg, he was supposed to follow up with urology 1 week from his appointment; looking in EMR he apparently was a no-show for this appointment. On admission patient states that he is no longer taking this medication but feels that he should be taking it. Patient observed to void a large amount in the ED. Continue Flomax Monitor for signs and symptoms of retention Continue outpatient follow-up with urology and Dr. Pinon Assessment & Plan (03/23/2019 6:54 AM EDT): Patient has been seen by his PCP and urology within the past month regarding urinary retention. Apparently the patient's urinary retention was such that at a visit to [place] he required Mckniney catheter placement. Per urology's note, patient has been experiencing a feeling of incomplete bladder emptying for approximately 8 months. He was started on tamsulosin 0.4 mg, he was supposed to follow up with urology 1 week from his appointment; looking in EMR he apparently was a no-show for this appointment. On admission patient states that he is no longer taking this medication but feels that he should be taking it. Patient observed to void a large amount in the ED. -Consider restarting patient's Flomax -Monitor for signs and symptoms of retention -Continue outpatient follow-up with urology and Dr. Pinon Polyuria 08/28/2017 12/01/2021 Assessment & Plan (08/28/2017 5:44 PM EDT): I doubt related to diabetes and given his not present throughout most of the rest the day suspect not a major problem. Will check an A1c. Discussed lifestyle modifications particular on diet Depression 08/05/2014 03/23/2021 Assessment & Plan (04/05/2019 11:21 AM EST): Likely has multiple diagnoses including PTSD. Medication management is been challenging for him. Would certainly stay away from benzodiazepines at this point in time. We will try to obtain a psychiatric consult from [facility] to assist with medication management that I would then manage with their assistance. In the meantime also try to get him into [facility] or other local agencies, but unlikely to be able to see a new prescriber for several months and I do not think we want to wait that long to start treating him. Call was made to [facility] to try to facilitate this process. We will try increasing the Cymbalta as he has had some luck with that medication Encounters Date Type Department Care Team Description 04/14/2024 Telephone [facility] Internal Medicine [address] [place] [address] Courtesy Clerk: Austyn Gardner LPN 04/13/2024 Refill [facility] [address] [place] [address] Courtesy Clerk: Terry Apodaca NP from Last 3 Months Immunizations Immunization Administration Dates Next Due Covid-19 Monovalent Vaccine, Moderna, mRNA, PF 05/21/2021,10/28/2020,09/24/2020 Hepatitis B Vaccine, Pediatr ic or Pediatric/Adolescent Dosage 04/21/2009,03/16/2008 Influenza, Injectable, Quadr ivalent, Preservative Free 05/21/2021,02/01/2019 Influenza, Trivalent, MDV, Injectable 05/26/2015 Seasonal Influenza, Intrader mal, Preservative Free 04/18/2016 Tetanus Toxoid, Reduced Diph theria Toxoid, and Acellular Pertussis Vaccine, Adsorbed 08/24/2022,11/11/2021,03/16/2009 Family History Medical History Relation Name Comments No Known Problems Brother 1 Addiction problem Brother 2 Heart failure Brother 2 ADD / ADHD Daughter Diabetes Father Lung cancer Father COPD Mother Fibromyalgia Mother Relation Name Status Comments Brother 1 Alive Brother 2 Daughter Alive Father Mother Social History Tobacco Use Types Packs/Day Years Used Date Smoking Tobacco: Every Day Cigarettes 1 23 Smokeless Tobacco: Current Tobacco Cessation:Ready to Q uit: Not Asked; Counseling Given: Not Answered Alcohol Use Standard Drinks/Week Comments Not Currently 0 (1 standard drink = 0.6 oz pur e alcohol) sober since Mar 2015 Transportation Answer Date Recorded Please jayde the areas for ich the patient would like information or assistance: None Apply 02/05/2023 Lack of Transportation (Medical) Not on file 02/05/2023 Housing Stability Answer Date Recorded Please jayde the areas for ich the patient would like information or assistance: None Apply 02/05/2023 Unable to Pay for Housing in the Last Year Not o n file 02/05/2023 Last EPDS Total Score Not on file 02/05/2023 Unstable Housing in the Last Year Not on file 02/05/2023 Sex and Gender Information Value Date Recorded Sex Assigned at Male 08/01/2020 10:01 AM EST Legal Sex Male 8:15 AM EDT Gender Identity Male 08/01/2020 10:01 AM EST Sexual Orientation Straight 08/01/2020 10 :01 AM EST 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 Not on file Not on file Last Filed Vital Signs Vital Sign Reading Time Taken Comments Blood Pressure 144/83 09/20/2023 2:50 PM EDT Pulse 102 09/20/2023 2:50 PM EDT Temperature 36.5 ??C (97.7 ??F) 02/06/2023 8:51 AM ED T Respiratory Rate 18 03/26/2020 5:36 PM EST Oxygen Saturation 98% 11/01/2022 11:36 AM EDT Inhaled Oxygen Concentration - - Weight 88.2 kg (194 lb 6.4 oz) 08/28/2023 11:51 AM EDT Height 172.7 cm (5' 8 ) 08/28/2023 11:51 AM EDT Body Mass Index 29.56 08/28/2023 11:51 AM EDT Plan of Treatment Health Maintenance Due Date Last Done Comments Varicella Vaccines (1 of 2 - 13+ 2-dose series) 10/23/1995 Hepatitis B Vaccines (1 of 3 - 19+ 3-dose series) 2001 04/21/2009, 03/16/2008 Pneumococcal Vaccine: Pediat gina (0-5 Years) and At-Risk Patients (6-50 Years) (1 of 2 - PCV) 2001 COVID-19 Vaccine (4 - 2023-2 5 season) 2024 05/21/2021, 10/28/2020, 09/24/2020 Influenza Vaccine (#1) 2024 , 02/01/2019, 04/18/2016, Additional history exists Alcohol/Substance Use Screening 05/22/2024 Depression Evaluation 05/22/2024 Social Drivers of Health Meghann ual Screening 05/22/2024 DTaP,Tdap,and Td Vaccines (4 - Td or Tdap) 08/24/2032 08/24/2022, 11/11/2021, 03/16/2009 RSV Vaccine (60+ years old a nd patients) (1 - 1-dose 75+ series) 2057 HIV Screening Completed 04/03/2019, 11/20, 01/03/2013, Additional history exists Procedures * Due to [place] state law, this organization might not be sharing negative HIV tests. Procedure Name Priority Date/Time Associated Diagnosis Comments CD4 COUNTS Routine 01/03/2013 5:00 AM EDT from Last 3 Months or Most Recently Relevant to Health Maintenance Additional Health Concerns Infection Onset Date Last Indicated Multidrug resistant organisms MRSA 02/19/2017 02/19/2017 Insurance [employer] PPO/EPO/IND WORKERS COMPENSATION WORKERS COMPENSATION Advance Directives * Full Code (Latest Code Status on File) Date Activated Date Inactivated Comments 03/23/2019 6:29 AM 03/27/2019 4:52 PM Healthcare Agents on File Name Relationship Healthcare Agent [facility] Communication Bhavik Plascencia [facility] Health Care Agent Care Teams Elevated Work Platform Operator Relationship Specialty Start Date End Date Terry Parr NP [address] [place] [id number] PCP - General Family Medicine 08/24/23
--- OUTSIDE RECORDS SUMMARY | 2024-07-10 15:14 | XMS_ITS | Clinical Summary ---
Author Organization [facility] Address [address] [place] [address] Care Team Providers Care Tenter Frame Back Tender Name Role Phone Harry Pinon MD Primary Care Provider [phone] Allergies No known active allergies Medications omeprazole (PriLOSEC) 20 MG capsule TAKE 2 CAPSULES BY MOUTH EVERY DAY DIRECTED 0 Active gabapentin (NEURONTIN) 600 MG tablet TAKE 1 TABLET BY MOUTH EVERY MORNING, 1 TABLET EVERY AFTERNOON, AND 1.5 TABLETS EVERY NIGHT 0 Active cloNIDine HCL (CATAPRES) 0.2 MG tablet TAKE 1 TABLET (0.2 MG TOTAL) BY MOUTH 3 TIMES A DAY NEEDED (ANXIETY). 0 Active SUBOXONE 8-[address] FILM (16 MG OF BUPRENORPHINE TOTAL) UNDER THE TONGUE DAILY FOR 21 DAYS. 0 Active amitriptyline (ELAVIL) 100 MG tablet TAKE 1 TABLET BY MOUTH EVERY DAY EVERY NIGHT 0 Active albuterol (ProAir HFA) 90 mcg/actuation inhaler ProAir HFA 90 mcg/actuation aerosol inhaler INHALE 2 PUFFS EVERY 4 HOURS NEEDED FOR COUGH AND WHEEZE. Active Social History Tobacco Use Types Packs/Day Years Used Date Smoking Tobacco: Every Day Cigarettes 1 22 Smokeless Tobacco: Never Tobacco Cessation:Ready to Q uit: No; Counseling Given: Yes Comments:Provided counseling on smoking cessation Sex and Gender Information Value Date Recorded Sex Assigned at Not on file Legal Sex Male 5:14 PM EDT Gender Identity Not on file Sexual Orientation Not on file Last Filed Vital Signs Vital Sign Reading Time Taken Comments Blood Pressure 118/64 09/06/2019 6:00 PM EDT Pulse 78 09/06/2019 6:00 PM EDT Temperature 36.8 ??C (98.3 ??F) 09/06/2019 6:00 PM ED T Respiratory Rate 18 09/06/2019 6:00 PM EDT Oxygen Saturation 98% 09/06/2019 6:00 PM EDT Inhaled Oxygen Concentration - - Weight - - Height - - Body Mass Index - - Plan of Treatment Health Maintenance Due Date Last Done Comments Depression: Screening Annual ly using PHQ-2/9 in Adults 18 yrs or above (or HM Modifier)([facility]) 2000 Hepatitis C Virus Infection in Adolescents and Adults: Screening (or Modifier) ([facility]) 2000 SDOH Screening Reminder: Meghann tenishallnivia for all adults ([facility]) 2000 Tobacco Smoking Cessation: i n Adults excluding Women: Behavioral and Pharmacotherapy Interventions ([facility]) 2000 DTaP/Tdap/Td Vaccines ([facility]) (1 - Tdap) 2001 Lipid Screening: Every 5 yrs for Men aged 35+ (or HM Modifier) ([facility]) 2018 Flu Vaccination: Yearly for ages 18mos through 64 years (or Modifier)([facility]) 12/21/2023 COVID-19 Vaccine Screening: Initial Series and Booster Status ([facility]) (2023- season) 2024 Zoster/Shingles Vaccine Seri es Screening: Adults aged 18+ yrs (or HM Modifiers)([facility]) (1 of 2) 2032 Pneumococcal Vaccination Scr eening: Pts 0-19 & 19-64 yrs of age ([facility]) Aged Out No longer eligible based on patient's age to complete this topic Medical Devices Not on file Insurance [email or web address] Care Teams Tenter Frame Back Tender Relationship Specialty Start Date End Date Harry Pinon MD [facility] [address] [place] [address] PCP - Senior Engineering Specialist 09/06/19
--- OUTSIDE RECORDS SUMMARY | 2024-07-10 15:14 | XMS_ITS | Clinical Summary ---
Author Organization [facility] Address [address] [place] [address], [id number] Care Team Providers Care Logistics Management Specialist Name Role Phone Unavailable Primary Care Provider Unavailabl e Social History Tobacco Use Types Packs/Day Years Used Date Smoking Tobacco: Never Assessed Sex and Gender Information Value Date Recorded Sex Assigned at Not on file Gender Identity Not on file Sexual Orientation Not on file Plan of Treatment Not on file
--- OUTSIDE RECORDS SUMMARY | 2024-07-10 15:14 | XMS_ITS | Referral Summary ---
Author Organization [facility] Address [address] [place] [address] Care Team Providers Care Flow Nurse Name Role Phone Terry Parr NP Primary Care Provide r Encounters Date Type Department Care Team Description 04/14/2024 Telephone [facility] Internal Medicine [address] [place] [phone] Gauge Maker: Austyn Gardner LPN 04/13/2024 Refill [facility] [address] [place] [phone] Gauge Maker: Terry Apodaca NP from Last 3 Months Allergies No known active allergies Medications * [...] (obstructive sleep apnea) 11/11/2021 Overview (04/30/2022): [facility] [place] 06/20/2012 (wt 210 lbs) Mild AHI 8, [...] continue CPAP at current settings. Smoking cessation. COM DEV documentation. Assessment & Plan (03/02/2022 8:11 PM [...] 6-9.8, EPR 2; adjusted climate settings; contacted [facility] for mask fitting. I'm impressed by his use/benefit/symptomatic improvement over the first 21 nights; suspect seasonal changes in humidity, anxiety/motivation are surmountable barriers to compliance. He is willing to continue CPAP. Reviewed [facility] documentation Assessment & Plan (12/01/2021 12:09 PM [...] sleep study for night of 11/29/2021 through [facility]. He agrees to proceed, submitted prior authorization [...] incision and drainage. Patient does have a rn perioperative and will contact them for an appointment. [...] of depression. Currently working with [facility] in [place], [place]. In remission on suboxone. Assessment & [...] would like to stay out of the [facility] as he knows he will be at [...] 19, 2019. Patient has checked himself into [facility] and is very concerned about his detoxing. [...] in his detox. The patient, paperwork from [facility] was supposed to be sent to [...] of sobriety from 2014 until recently in 2018. Patient states that he last used heroin and benzodiazepines on 03/22/2019, and he used crack cocaine last on approximately March 18 or March 19, 2019. Patient has checked himself into [facility] and is very concerned about his [...] in his detox. The patient, paperwork from [facility] was supposed to be sent to [...] expected week of 02/03 Completed treatement at [facility] ID Dr. Eaton with [facility] 2019. Assessment & Plan (08/05/2020 5:26 PM EDT): [place], advised follow-up with [facility] regarding this for further treatment Assessment [...] bottle of medication, and since being in [facility] he has not received any of [...] bottle of medication, and since being in [facility] he has not received any of this medication. Given patient's labs in continuing this medication, there is concern he may have already failed treatment. - Due to patient's non-compliance, will dc [facility] - Outpatient follow-up Assessment & Plan (12/05/2018 [...] new psychiatrist that patient states is from [facility] in [place], [place]. It is unclear if patient means [facility], as this office does have a [place] location. An Internet search did not reveal location for a [facility]. Patient was prescribed a 30-day supply of [...] new psychiatrist that patient states is from [facility] in [place], [place]. It is unclear if patient means [facility], as this office does have a [place] location. An Internet search did not reveal a was for location for a neuro behavioral health. Patient was prescribed a 30-day supply of [...] COVID-19. Patient is unable to present to [place] but will seek testing at local pharmacy. [...] plan. PLAN -After discussion patient determined that [facility] emergency department would be the best location for patient given patient's home location. This TEAM SUPERVISOR called over report to ED, also updated on-call provider (Dr. Oreilly). Routine general medical exam ination at a [facility] facility 08/05/2020 11/25/2021 Assessment & Plan (08/05/2020 5:24 [...] He states that he initially presented to [facility] was prescribed an oral antibiotic. He cannot recall the name of this antibiotic and he never picked up the antibiotic. Patient entered [facility] on Thursday 03/22 to undergo treatment for [...] He states that he initially presented to [facility] was prescribed an oral antibiotic. He cannot recall the name of this antibiotic and he never picked up the antibiotic. Patient entered [facility] on Thursday 03/22 to undergo treatment for his polysubstance abuse. [facility] due to to his symptoms [...] was such that at a visit to [place] he required Mckinney catheter placement. Per urology's [...] was such that at a visit to [place] he required Mckinney catheter placement. Per urology's [...] try to obtain a psychiatric consult from [facility] to assist with medication management that I would then manage with their assistance. In the meantime also try to get him into [facility] or other local agencies, but unlikely to be able to see a new prescriber for several months and I do not think we want to wait that long to start treating him. Call was made to [facility] to try to facilitate this process. We will try increasing the Cymbalta as he has had some luck with that medication Immunizations Immunization Administration Dates Next Due Covid-19 Monovalent Vaccine, Moderna, mRNA, PF 05/21/2021,10/28/2020,09/24/2020 Hepatitis B Vaccine, Pediatr ic or Pediatric/Adolescent Dosage 04/21/2009,03/16/2008 Influenza, Injectable, Quadr ivalent, Preservative Free 05/21/2021,02/01/2019 Influenza, Trivalent, MDV, Injectable 05/26/2015 Seasonal Influenza, Intrader mal, Preservative Free 04/18/2016 Tetanus Toxoid, Reduced Diph theria Toxoid, and Acellular Pertussis Vaccine, Adsorbed 08/24/2022,11/11/2021,03/16/2009 Social History Tobacco Use Types Packs/Day Years Used Date Smoking Tobacco: Every Day Cigarettes 1 23 Smokeless Tobacco: Current Tobacco Cessation:Ready to Q uit: Not Asked; Counseling Given: Not Answered Alcohol Use Standard Drinks/Week Comments Not Currently 0 (1 standard drink = 0.6 oz pur e alcohol) sober since Mar 2015 Transportation Answer Date Recorded Please jayde the areas for wh ich the patient would like information or [...] 08/28/2023 11:51 AM EDT Plan of Treatment Not on file Procedures * Due to [place] state law, this organization might not be [...] Agents on File Name Relationship Healthcare Agent [facility] Communication Bhavik Plascencia [facility] Care Agent Care Teams Flow Nurse Relationship Specialty Start Date End Date Terry Parr NP [address] [place] [id number] PCP - General Family Medicine 08/24/23
--- OUTSIDE RECORDS SUMMARY | 2024-07-10 15:14 | XMS_ITS | Clinical Summary ---
Author Organization [facility] Address [address] [place] [address] Care Team Providers Care Tire Care Manager Name Role Phone Unknown Pcp, Non Rmg Primary Care Provider Unava ilable Allergies No known active allergies Medications * This document contains information received from the source organization and may not represent a complete record from that organization. CloNIDine HCl 0.1 MG Tab 1 TABLET TWICE DAILY Active Omeprazole 20 MG CAPSULE DELAYED RELEASE 2 CAPSULE DAILY Active DULoxetine HCl (CYMBALTA) [address] Particles 1 CAPSULE DAILY Active Oxycodone-Aceta minophen (PERCOCET) 5-325 MG TabIndications: Biceps tendon rupture, proximal, right, initial encounter 1 TABLET EVERY 6 HOURS NEEDED Active Oxycodone-Aceta minophen 7.5-325 MG TabIndications: Labral tear of long head of biceps tendon, right, initial encounter take 1 tablet every 6 hours as needed for pain (MaximumL 4 tablets/day) 8 Tab 0 2014 Active Ibuprofen 800 MG Tab 1 TABLET 3 TIMES DAILY WITH MEALS 30 Tab 01/30/2017 Active Carisoprodol 250 MG TabIndications: Chest wall muscle strain, initial encounter,Pain of left scapula 1 TABLET UP TO 3 TIMES A DAY AND AT BEDTIME 40 Tab 03/08/2017 Active Erythromycin 5 MG/GM Ointment Apply a small amount into right eyeball at bedtime as needed 1 Tube 06/29/2017 Active Active Problems Problem Noted Date Diagnosed Date Low back sprain 01/30/2017 Low back pain radiating to right leg 01/30/2017 Contusion of left knee 01/30/2017 Patellar bursitis 01/30/2017 Social History Tobacco Use Types Packs/Day Years Used Date Smoking Tobacco: Every Day Alcohol Use Standard Drinks/Week Comments Not Asked 0 (1 standard drink = 0.6 oz pur e alcohol) Sex and Gender Information Value Date Recorded Sex Assigned at Not on file Legal Sex Male 10:27 PM EDT Gender Identity Not on file Sexual Orientation Not on file Last Filed Vital Signs Vital Sign Reading Time Taken Comments Blood Pressure 112/84 03/13/2017 8:35 AM EDT Pulse 88 03/13/2017 8:35 AM EDT Temperature 36.7 ??C (98 ??F) 2014 3:14 PM EDT Respiratory Rate 18 2014 3:14 PM EDT Oxygen Saturation - - Inhaled Oxygen Concentration - - Weight 74.8 kg (165 lb) 2014 3:14 PM EDT Height 175.3 cm (5' 9 ) 2014 3:14 PM EDT Body Mass Index 24.37 2014 3:14 PM EDT Plan of Treatment Health Maintenance Due Date Last Done Comments DTaP/Tdap/Td (1 - Tdap) 2000 Hep B (1 of 3 - 19+ 3-dose series) 2001 COVID-19 Vaccine ( - 2023-2 5 season) 2024 Influenza (#1) 2024 04/18/2016, 05/26/2015 Zoster (Shingrix) (1 of 2) 2032 Hepatitis C Screening Completed 12/14/2018 HPV Vaccine Aged Out No longer eligi ble based on patient's age to complete this topic Hep A Aged Out No longer eligi ble based on patient's age to complete this topic Hib Aged Out No longer eligi ble based on patient's age to complete this topic Meningococcal ACWY Aged Out No longer eligible based on patient's age to complete this topic Pneumococcal Aged Out No longer eligi ble based on patient's age to complete this topic Insurance [address] [place] [address] [facility] (NETWORK COMMERCIAL-OUT OF NETWORK) * Guarantor: [id number] [employer] Account Type Relation to Patient Date of Phone Billing Address [employer] [address] [place] [address] [employer] * Guarantor: [id number] [employer] Account Type Relation to Patient Date of Phone Billing Address [employer] [address] [place] [address] [employer] * Guarantor: EMELY BASILIO Account Type Relation to Patient Date of Phone Billing Address [employer]ational [employer] [address] [place] [address] * Guarantor: Deven [employer] Account Type Relation to Patient Date of Phone Billing Address [employer] ATTN: A/P [address] [address] [place] [address] * Guarantor: Deven [employer] Account Type Relation to Patient Date of Phone Billing Address [employer] [address] ATTN: A/P [address] [place] [address] Care Teams Tire Care Manager Relationship Specialty Start Date End Date Unknown Pcp, Non Rmg PCP - General 05/18/19
--- OUTSIDE RECORDS SUMMARY | 2024-07-10 15:14 | XMS_ITS | Continuity of Care Document ---
Author Organization [facility] Address [address] [place] [address]- Care Team Providers Care Bead Supervisor Name Role Phone Kirk WARE, Apryl Camacho Primary Care Physician [phone] Encounter [facility] Date(s): 06/03/24 - 07/03/24 [facility] [address], [place] [address] Encounter Type: Triage Allergies, Adverse Reactions, Alerts No Known Medication Allergies Immunizations Given and Recorded Vaccine Date Status Refusal Reason tetanus/diphtheria/pertussis, acel(Tdap) 08/24/22 Recorded tetanus/diphtheria/pertussis, acel(Tdap) 11/11/21 Recorded influenza virus vaccine, inactivated 05/21/21 Jeremy rded influenza virus vaccine, inactivated 02/01/19 Jeremy rded SARS-CoV-2 (COVID-19) mRNA-1273 vaccine 05/21/21 R ecorded SARS-CoV-2 (COVID-19) mRNA-1273 vaccine 10/23/20 R ecorded SARS-CoV-2 (COVID-19) mRNA-1273 vaccine 09/24/20 R ecorded Medications amitriptyline 150 mg oral tablet 90 each, 0 Refill(s), TAKE 1 TABLET BY MOUTH ONCE A DAY AT BEDTIME, 0 Refills, 04/19/24 3:14:00 PM EST, Partial fill upon patient request if the prescription is for a schedule II opioid drug. Start Date: 04/19/24 Status: Ordered Repeat number: 1 atorvastatin 40 mg oral tablet 1 tablet = 40 mg, By Mouth, Daily, 0 Refills, Maintenance, 04/19/24 3:08:00 PM EST, Partial fill upon patient request if the prescription is for a schedule II opioid drug. Start Date: 04/19/24 Status: Ordered Repeat number: 1 busPIRone 10 mg oral tablet 540 each, 0 Refill(s), TAKE 2 TABLETS BY MOUTH 3 TIMES DAILY, Refills 0, 04/19/24 3:13:00 PM EST, Partial fill upon patient request if the prescription is for a schedule II opioid drug. Start Date: 04/19/24 Status: Ordered Repeat number: 1 cetirizine 10 mg oral tablet 1 tablet = 10 mg, By Mouth, Daily, # 30 tablet, 0 Refills, Maintenance, 04/19/24 3:29:00 PM EST, Tablet, [facility]/pharmacy #[id number], Partial fill upon patient request if the prescription is for a schedule IIopioid drug., 176, cm, 04/19/24 14:59:00 EST, Height, 84, kg, 12/07/23 0:07:00 EDT, Dry Weight Start Date: 04/19/24 Status: Ordered Quantity: 30.0 Unit: tablet Repeat number: 1 Indication: Allergic rhinitis, unspecified Clonidine = 0.1 mg, By Mouth, 3 times a day, 0 Refills, Maintenance, 02/17/17 6:16:57 PM EDT Start Date: 02/17/17 Status: Ordered Repeat number: 1 eszopiclone 2 mg oral tablet 15 each, 0 Refill(s), TAKE 1 TABLET BY MOUTH AT BEDTIME NEEDED FOR SLEEP, 0 Refills, 04/19/24 3:13:00 PM EST, Partial fill upon patient request if the prescription is for a schedule II opioid drug. Start Date: 04/19/24 Status: Ordered Repeat number: 1 fluticasone 50 mcg/inh nasal spray 1 sprays = 50 mcg, Nares, Both, 2 times a day, # 16 Gm, 0 Refills, Maintenance, 04/19/24 3:29:00 PMEST, [place], [facility]/pharmacy #[id number], Partial fill upon patient request if the prescription is for a schedule II opioid drug., 1 sprays Nares, Both 2 times a day, 176, cm, 04/19/24 14:59:00 EST, Height, 84, kg, 12/07/23 0:07:00 EDT, Dry Weight Start Date: 04/19/24 Status: Ordered Quantity: 16.0 Unit: g Repeat number: 1 Indication: Allergic rhinitis, unspecified nicotine 2 mg oral transmucosal lozenge 1 lozenge = 2 mg, By Mouth, Every 2 hours, PRN as needed for smoking cessation, do not chew or swallow whole, # 360 lozenge, 11 Refills, Maintenance, 04/19/24 4:12:00 PM EST, [id number], Partial fill upon patient request if the prescription is for a schedule II opioid drug., 1 lozenge By Mouth Every 2 hours,PRN:as needed for smoking cessation,Instr:do not chew or swallow whole, 176, cm, 04/19/24 14:59:00 EST, Height, 84, kg, 12/07/23 0:07:00 EDT, Dry Weight Start Date: 04/19/24 Stop Date: 09/05/25 Status: Ordered Quantity: 360.0 Unit: lozenge Repeat number: 12 Indication: Nicotine dependence, cigarettes, uncomplicated Prilosec 20 mg oral enteric coated capsule 1 capsule = 20 mg, By Mouth, Daily, 0 Refills, Maintenance, 02/17/17 6:17:16 PM EDT Start Date: 02/17/17 Status: Ordered Repeat number: 1 Sublocade 100 mg/0.5 mL subcutaneous solution, extended release = 100 mg, Subcutaneous Infusion, Every 28 days, 0 Refills, Maintenance, 04/19/24 4:20:00 PM EST, Partial fill upon patient request if the prescription is for a schedule II opioid drug. Start Date: 04/19/24 Status: Ordered Repeat number: 1 Problem List Condition Confirmation Course Effective Dates Status H ealth Status Informant Anogenital HPV infection Confirmed Active Cigarette smoker Confirmed Active Cocaine use disorder in remission Confirmed Active ELIZABETH (generalized anxiety disorder) Confirmed Active History of opioid abuse Confirmed Active History of hepatitis C Confirmed Active History of intravenous drug use in remission Confirmed Active Other insomnia Confirmed Active Mixed hyperlipidemia Confirmed Active Obese class I Confirmed Active Obstructive sleep apnea Confirmed Active Establishing care with new doctor, encounter for Confirmed Active Physical exam Confirmed Active Mild recurrent major depression Confirmed Active Allergic rhinitis Confirmed Active Social History Social History Type Response Smoking Status 10 or more cigarette s (1/2 pack or more)/day in last 30 days; Type: Cigarettes; Tobacco use times per day: 1ppd; Number of years: 28; Total pack years: 28; Started at age: 15; entered on: 04/19/24 Sex Sex Representation Male (finding) Patient Care team information Care Team Personnel Name: Apryl Bradley MD, V Position: [facility] Physician - Primary Care Member Role: PCP Address: [address] [place] [address] Telecom: Care Team Related Persons Name: LORENZO MEMBRENO Insurance Providers Guarantor name: JAYLA TEMI Health Plan Information #: 1 Payer: [facility] HMO POS Member Number: NA Policy Number: NA Group Number: NA Health Plan Information #: 2 [facility] Member Number: NA Policy Number: NA Group Number: NA
--- NOTE | 2024-07-11 08:43 | AM.OFFVISNUR ---
Vital Signs 07/10/24 09:12 BP 140/80 H Blood Pressure Location Lt brachial Position Sitting Pulse 80 Pulse Source Pulse Oximeter Pulse Oximetry (%) 98 Intake Visit Reasons: Sublocade Injection Allergies No Known Allergies Allergy (Verified 12/28/23 15:37) Nursing Note Patient Presents for sublocade Injection. Current Dose 100mg . Given in the RLQ with no noted or stated complication. Denies any issues with previous injection. Office Meds Sublocade 100 mg/0.5 mL solution,extended release subcutaneous syringe Performing Provider: Linda Plata CNP Performing Location: [facility] Administered by: Sadia Acuña RN on 07/12/24 15:21 Dose Route Admin Location Dispensed Lot Number Expiration Date [facility] [employer] 100 mg subcut RLQ 0.5 mL [id number] 06/22/25 [address]-1 [employer]. Assessment & Plan Assessment & Plan Orders: Orders AMB Buprenorphine Injection 07/10/24 F11.90 - Opioid use, unspecified, uncomplicated Medications: New Sublocade ER (buprenorphine) 100 mg (0.5 mL) subcut ONCE 0.5 mL 0RF NS F11.90 - Opioid use, unspecified, uncomplicated Coding
== END 2024-07-10 16:11 | disposition home or self-care (01) ==
DX: F11.90 Opioid use, unspecified, uncomplicated (principal)

== ENCOUNTER → 2024-07-10 15:06 | Outpatient (BNVA) | payer OTHER, SELFPAY | DX: F11.90 Opioid use, unspecified, uncomplicated (principal) | CPT/HCPCS: 96372; Q9991 ==

== ENCOUNTER → 2024-08-09 16:10 | Outpatient (AMB) | payer OTHER, SELFPAY ==
[2024-08-09 16:17] VITALS: BP 120/80; PULSE 90; O2SAT 98; BMI 30.6
--- NOTE | 2024-08-09 16:17 | AM.OFFVISNUR ---
Vital Signs 08/09/24 16:17 Height 5 ft 9 in Weight 93.894 kg BMI 30.6 BP 120/80 Blood Pressure Location Lt brachial Position Sitting Pulse 90 Pulse Source Pulse Oximeter Pulse Oximetry (%) 98 Oxygen Delivery Method Room Air Intake Visit Reasons: sublocade injection Allergies No Known Allergies Allergy (Verified 08/09/24 16:18) Coding
--- NOTE | 2024-08-09 16:52 | AM.OFFVISNUR ---
Vital Signs 08/09/24 16:17 Height 5 ft 9 in Weight 93.894 kg BMI 30.6 BP 120/80 Blood Pressure Location Lt brachial Position Sitting Pulse 90 Pulse Source Pulse Oximeter Pulse Oximetry (%) 98 Oxygen Delivery Method Room Air Intake Visit Reasons: sublocade injection Allergies No Known Allergies Allergy (Verified 08/09/24 16:18) Nursing Note Cisco presents for 4 week follow-up and Sublocade injection, doing well in long-term recovery. Ice pack provided pre-injection per patient request. No issues noted. Educated on signs and symptoms of infection. Made a follow-up appointment for next injection. Will call [facility] if any questions or concerns arise. Office Meds Sublocade 100 mg/0.5 mL solution,extended release subcutaneous syringe Performing Provider: Linda Plata CNP Performing Location: [facility] Administered by: Adelaide Ruggiero RN on 08/09/24 16:47 Dose Route Admin Location Dispensed Lot Number Expiration Date [facility] [employer] 100 mg subcut LLQ 0.5 mL [id number] 08/19/25 [address]-0 [employer]. Comments: Pt tolerated injection well, no issues with previous injections. Pt instructed to monitor for signs and symptoms of infection and call the [facility] with any questions or concerns. Pt verbalized understanding. Appointment made to follow up in 4 weeks. Assessment & Plan Assessment & Plan Orders: Orders AMB Buprenorphine Injection - Patient Supplied Today F11.21 - Opioid dependence, in remission Coding
--- OUTSIDE RECORDS SUMMARY | 2024-08-09 17:32 | XMS_ITS | Continuity of Care Document ---
Author Organization [facility] Address [address] [place] [address]- Care Team Providers Care Laminator Hand Name Role Phone Kirk WARE, Apryl Camacho Primary Care Physician [place] [facility] Date(s): 06/12/24 - 07/12/24 [facility] [address], [place] [address] Encounter Type: Triage Allergies, Adverse Reactions, Alerts [...] Refills, Maintenance, 04/19/24 3:29:00 PM EST, Tablet, [facility]/pharmacy #[id number], Partial fill upon patient request if [...] Gm, 0 Refills, Maintenance, 04/19/24 3:29:00 PMEST, [place], [facility]/pharmacy #[id number], Partial fill upon patient request if [...] Personnel Name: Apryl Bradley MD, V Position: S Physician - Primary Care Member Role: PCP Address: [address] [place] [address] Telecom: Care Team Related Persons Name: LORENZO MEMBRENO Insurance Providers Guarantor name: JAYLA TEMI Health Plan Information #: 1 Payer: [facility] HMO POS Member Number: NA Policy Number: NA Group Number: NA Health Plan Information #: 2 [facility]: [facility] Member Number: NA Policy Number: NA Group Number: NA
--- OUTSIDE RECORDS SUMMARY | 2024-08-09 17:32 | XMS_ITS | Data Portability ---
Author Organization [place] [facility] [place], [facility] Address [address] [place] [address] Care Team Providers Care Administrative Support Manager Name Role Phone LUDY POWER Furnace Process Supervisor TRINA GARCIA Referring Provider Assessment Encounter Date [...] [place] 2015 016 ATHENAFAX [facility] - Mri, [address] [place] [address], [place], [address], 6 14:41:28 x-ray, shoulder - AP/ GRASHEY/AX ILLARY (if pt unable to do axillary please do [facility] AXILLARY) 2014 015 [email or web address] Not available 5 11:41:50 Medication Orders oxycodone 5 mg tablet 2014 015 [id number], [address], [place], [id number], 5 12:43:50 Patient TargetsNo targets recorded. Patient InstructionsNo [...] MSSA SCREEN BY PCR normal Not Available [facility] (Lab) [address] [place], [address], 10/28/2014 08:56:24 10/24/19 15 10/20/2014 MRI, shoul alice No observ ation record ed. [email or web address] Not Available 10/23 17:49:13 10/29/19 15 helder ble shoul alice right No observ ation record ed. [address], [address] 04/29/2015 04:01:03 10/29/19 15 10/28/2014 helder ble shoul alice right Fin al Report EXAM#: [id number] PROCED URE: OR 0032 PORTAB LE [...] LANGSTON M.D. On: Oct 28 2014 12:01P [facility] [address] [place], [address], 04/29/2015 04:01:03 10/29/19 15 helder ble shoul alice right No observ ation record ed. [address], [address] 04/29/2015 04:01:03 Result Notes None recorded. Problems Name Problem SNOMED Code Status Onset Date Resolution Date Notes Provider Name and Address Organization Details Recorded Time Rupture of pectoralis major muscle 236900057 Active Jennifer devi [facility] 5 10:50:31 Shoulder pain 73105995 Active Jennifer devi [facility] 6 10:19:02 Strain of tendon of upper arm 354305367 Active Jennifer Loza [facility] 5 09:56:16 Problem Notes None recorded. Procedures Surgical History Date Name Laterality Status Provider Name and Address Organization Details Recorded Time 10/29/19 15 Orthopaedic Surgery completed Suly Dickens [facility] 12/16/2014 11:51:43 Imaging Results Imaging Date Name Status LastModified by Organiz ation Details LastModified Time 10/20/2014 MRI, shoulder completed [email or web address] Information not available 10/23/2014 17:49:13 10/28/2014 portable shoulder right completed [address], [address] 04/29/2015 04:01:03 10/28/2014 portable shoulder right completed [facility] [address] [place], [address], 04/29/2015 04:01:03 10/28/2014 portable shoulder right completed [address], [address] 04/29/2015 04:01:03 Procedure Notes None recorded. Medical [...] Updated DateTime 11/13/2014 175.26 cm 23.6 kg/m2 20632.7792 g Suly Maninder [facility] 11/13/2014 10:34:15 Date Recorded Body height Body mass index (BMI) Body weight Provider Name and Address Organization Details Last Updated DateTime 12/11/2014 175.26 cm 23.6 kg/m2 65864.7792 g Ryan Dickey [facility] 12/11/2014 12:59:42 Date Recorded Body height Body mass index (BMI) Body weight Provider Name and Address Organization Details Last Updated DateTime 03/05/2015 175.26 cm 21.4 kg/m2 78307.01306 [facility] 03/05/2015 12:43:50 Date Recorded Body weight Body mass index (BMI) Body height Provider Name and Address Organization Details Last Updated DateTime 05/20/2015 93761.32914 g 25.8 kg/m2 175.26 cm Pros[facility] 05/20/2015 09:17:54 Date Recorded Body mass index (BMI) Body weight Body height Provider Name and Address Organization Details Last Updated DateTime 06/19/2015 25.8 kg/m2 02246.27577 g 175.26 cm Ryan [facility] 06/19/2015 11:48:21 Social History Question Answer Notes LastModified by Organizat ion Details LastModified Time Tobacco Smoking Status Current Every Day Smoker Chacha devi [facility] 10/23/2014 17:10:13 Auto Related Injury? 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 No Information not available 03/05/2015 Work Related Injury? Yes Information not available 03/05/2015 Sex: Unknown Functional Status Question Answer Note LastModified by Organization D etails LastModified Time What is your exercise level? None Information not available 03/05/2015 Mental Status None recorded. Family History Nothing Reported. Medical History Condition Response Blood Clots / Phlebitis N Heart Problems N HIV or AIDS N High Blood Pressure N Depression or Anxiety Y Irregular Heartbeat N Emphysema / Chronic Bronchitis N Any Other Significant Medical Issues N Reaction to General/Local Anesthesia N Hepatitis / Jaundice Y Weight Gain / Loss N Kidney / Bladder Infections N Diabetes N [...] Asthma / Shortness of Breath / Sleep Geriatric Physical Therapist ea (please specify) N Pulmonary Embolism N Past Encounters Encounter ID Performer Location Encounter Start Date Encounter Closed Date Diagnosis/Indication Diagnosis SNOMED-CT Code Diagnosis ICD10 Code Diagnosis Note [id number] Iona Aguirre [facility] Office [address] [place], [place] [phone] 10/23/2014 16:36:01 10/23/2014 17:42:38 Rupture of pectoralis major muscle 370046756 [id number] [facility] Office [address] [place] [id number] 11/13/2014 09:57:50 11/13/2014 11:27:50 Shoulder pain 81029873 Rupture of pectoralis major muscle 752074616 [id number] Porsper Solis [facility] Office [address] [place] [id number] 12/11/2014 12:53:08 12/11/2014 13:16:26 Rupture of pectoralis major muscle 857470650 [id number] CK ARRIETA MD [facility] Office [address] [place] [phone] 03/05/2015 12:28:54 03/05/2015 13:10:50 Shoulder pain 07994018 M25.511 Strain of tendon of upper arm 014128415 S46.811D [id number] CK ARRIETA MD [facility] Office [address] [place] [id number] 05/20/2015 09:06:10 05/20/2015 09:54:16 Shoulder pain 57523915 M25.511 [id number] CK ARRIETA MD [facility] am Office [address] [place] [phone] 06/19/2015 11:25:26 06/19/2015 12:23:36 Shoulder pain 52726468 M25.511 Health Concerns Section Related Observation LastModified [...] [employer] Paul 12/11/2014 [employer] Paul 03/05/2015 [employer] Paul 05/20/2015 [employer] - [facility] [employer] Paul 06/19/2015 [employer] - [facility] [employer] Paul Notes Date Note Type Note Provider Name and Address Organization Details Recorded Time 11/13/2014 text/html HPI He is status post a pectoralis major repair. He is doing great.? CK ARRIETA MD [address] [place] [address], [phone], [facility] 11/13/2014 12:55:00 12/11/2014 text/html HPI He is six weeks out from a pectoralis major repair. He is doing okay. He is in a little more pain than I would like.? CK ARRIETA MD [address] [place] [address], [phone], [facility] 12/16/2014 11:03:45 03/05/2015 text/html HPI He is status post a pectoralis major repair in October. His pectoralis repair looks great. He is still having some pain posteriorly which I think is from the retractors. He has not been able to do therapy and he is stiff, so I think he essentially has some mild frozen shoulder.? CK ARRIETA MD [address] [place] [address], [phone], [facility] 03/09/2015 08:50:38 05/20/2015 text/html HPI The patient had a pectoralis major repair back in October. He is doing great.? CK ARRIETA MD [address] [place] [address], [phone], [facility] 05/21/2015 05:41:23 06/19/2015 text/html HPI HISTORY: The [...] a big injury initially.? CK ARRIETA MD [address] [place] [address], [phone], [facility] 06/25/2015 10:29:31
--- OUTSIDE RECORDS SUMMARY | 2024-08-09 17:32 | XMS_ITS | Referral Summary ---
Author Organization [facility] Address [address] [place] [address] Care Team Providers Care Supervisor [employer]umin[employer]ation Name Role Phone Terry Parr NP Primary [...] (obstructive sleep apnea) 11/11/2021 Overview (04/30/2022): PSG [place]uneau 06/20/2012 (wt 210 lbs) Mild AHI 8, [...] continue CPAP at current settings. Smoking cessation. [facility] documentation. Assessment & Plan (03/02/2022 8:11 PM [...] 6-9.8, EPR 2; adjusted climate settings; contacted [facility] for mask fitting. I'm impressed by his use/benefit/symptomatic improvement over the first 21 nights; suspect seasonal changes in humidity, anxiety/motivation are surmountable barriers to compliance. He is willing to continue CPAP. Reviewed [employer] documentation Assessment & Plan (12/01/2021 12:09 PM [...] sleep study for night of 11/29/2021 through [facility]. He agrees to proceed, submitted prior authorization [...] incision and drainage. Patient does have a associate merchandiser and will contact them for an appointment. [...] of depression. Currently working with Clinton at [facility] in [place], [place]. In remission on suboxone. Assessment & [...] would like to stay out of the [facility] as he knows he will be at [...] 19, 2019. Patient has checked himself into [facility] and is very concerned about his [...] in his detox. The patient, paperwork from [facility] was supposed to be sent [...] 19, 2019. Patient has checked himself into [facility] and is very concerned about his [...] in his detox. The patient, paperwork from [facility] was supposed to be sent to [...] expected week of 02/03 Completed treatement at [facility] ID Dr. Eaton with Mavyret 2019. Assessment & Plan (08/05/2020 5:26 PM EDT): [place], advised follow-up with [facility] regarding this for further treatment Assessment [...] bottle of medication, and since being in [facility] he has not received any of [...] bottle of medication, and since being in [facility] he has not received any of [...] psychiatrist that patient states is from [facility] in [place], [place]. It is unclear if patient means [facility], as this office does have a [place] location. An Internet search did not reveal location for a [facility]. Patient was prescribed a 30-day [...] psychiatrist that patient states is from [facility] in [place], [place]. It is unclear if patient means [facility], as this office does have a [place] location. An Internet search did not reveal a was for location for a [facility] [employer] [facility]. Patient was prescribed a 30-day supply [...] COVID-19. Patient is unable to present to [place] but will seek testing at local pharmacy. [...] plan. PLAN -After discussion patient determined that [facility] emergency department would be the best location for patient given patient's home location. 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 Oreilly). Routine general medical exam ination at [place] 08/05/2020 11/25/2021 Assessment & Plan (08/05/2020 5:24 [...] He states that he initially presented to [facility] was prescribed an oral antibiotic. He cannot recall the name of this antibiotic and he never picked up the antibiotic. Patient entered [facility] on Thursday 03/22 to undergo treatment [...] He states that he initially presented to [facility] was prescribed an oral antibiotic. He cannot recall the name of this antibiotic and he never picked up the antibiotic. Patient entered [facility] on Thursday 03/22 to undergo treatment for his polysubstance abuse. He was sent from [facility] recovery due to to his [...] was such that at a visit to [place] he required Mckinney catheter placement. Per urology's [...] was such that at a visit to [place] he required Mckinney catheter placement. Per urology's [...] try to obtain a psychiatric consult from [facility] to assist with medication management that I would then manage with their assistance. In the meantime also try to get him into [place] or other local agencies, but unlikely to be able to see a new prescriber for several months and I do not think we want to wait that long to start treating him. Call was made to [facility] to try to facilitate this [...] Date Recorded Please jayde the areas for [facility] the patient would like information or assistance: None Apply 02/05/2023 Lack of Transportation (Medical) Not on file 02/05/2023 Housing Stability Answer Date Recorded Please jayde the areas for [facility] the patient would like information or assistance: [...] Not on file Procedures * Due to [place] state law, this organization might not be [...] Agents on File Name Relationship Healthcare Agent [facility] Communication Bhavik Plascencia [facility] Health Care Agent Care Teams Supervisor [employer] Relationship Specialty Start Date End Date Terry Parr NP [address] [place] [id number] PCP - General Family Medicine 08/24/23
--- OUTSIDE RECORDS SUMMARY | 2024-08-09 17:32 | XMS_ITS | Continuity of Care Document ---
Author Organization [facility] Address [address] [place] [address]- Care Team Providers Care Credit Collections Rep Name Role Phone Kirk WARE, Apryl Camacho Primary Care Physician Encounter [facility] ACCT R [id number] Date(s): 06/12/24 - 07/12/[address] [address]- Attending Physician: Yashira Jones Admitting Physician: AdmYashira cárdenas Referring Physician: Admtr [id number] Encounter Type: Triage Allergies, Adverse Reactions, Alerts [...] Refills, Maintenance, 04/19/24 3:29:00 PM EST, Tablet, [facility]/pharmacy #[id number], Partial fill upon patient request if [...] Gm, 0 Refills, Maintenance, 04/19/24 3:29:00 PMEST, [place], [facility]/pharmacy #[id number], Partial fill upon patient request if [...] 11 Refills, Maintenance, 04/19/24 4:12:00 PM EST, [facility]/pharmacy #[id number], Partial fill upon patient request if [...] Care team information Care Team Personnel Name: Kirk WARE, pAryl Camacho Position: S Physician - Primary Care Member Role: PCP Address: [address] [place] [address] Telecom: Care Team Related Persons Name: LORENZO MEMBRENO Insurance Providers Guarantor name: JAYLA MEMBRENO Health Plan Information #: 1 Payer: CIGNA HMO POS Member Number: NA Policy Number: NA Group Number: NA Health Plan Information #: 2 Payer: CIGNA O MVP Member Number: NA Policy Number: NA Group Number: NA
--- OUTSIDE RECORDS SUMMARY | 2024-08-09 17:32 | XMS_ITS | Clinical Summary ---
Author Organization [facility] Address [address] [place] [address] Care Team Providers Care Horologist Apprentice Name Role Phone Harry Pinon MD Primary Care Provider [phone] Allergies No known active allergies Medications omeprazole [...] Adults 18 yrs or above (or HM Modifier)([facility]) 2000 Hepatitis C Virus Infection in Adolescents and Adults: Screening (or Modifier) ([facility]) 2000 SDOH Screening Reminder: Meghann tenishallnivia for all adults ([facility]) 2000 Tobacco Smoking Cessation: i n Adults excluding Women: Behavioral and Pharmacotherapy Interventions ([facility]) 2000 DTaP/Tdap/Td Vaccines ([facility]) (1 - Tdap) 2001 Lipid Screening: Every 5 yrs for Men aged 35+ (or HM Modifier) ([facility]) 2018 Flu Vaccination: Yearly for ages 18mos through 64 years (or Modifier)([facility]) 12/21/2023 COVID-19 Vaccine Screening: Initial Series and Booster Status ([facility]) (2023- season) 2024 Zoster/Shingles Vaccine Seri es Screening: Adults aged 18+ yrs (or HM Modifiers)([facility]) (1 of 2) 2032 Pneumococcal Vaccination Scr eening: Pts 0-19 & 19-64 yrs of age ([facility]) Aged Out No longer eligible based on patient's age to complete this topic Medical Devices Not on file Insurance Pure life renal Care Teams Horologist Apprentice Relationship Specialty Start Date End Date Harry Pinon MD [facility] [address] [place] [address] PCP - Coin Box Inspector 09/06/19
--- OUTSIDE RECORDS SUMMARY | 2024-08-09 17:32 | XMS_ITS | Continuity of Care Document ---
Author Organization [facility] Address [address] [place] [address]- Care Team Providers Care Phlebotomist Medical Lab Assistant Name Role Phone Kirk WARE, Apryl Camacho Primary Care Physician [phone] Encounter [facility] Date(s): 03/15/24 - 07/12/[address] [address]- Attending Physician: Not on Staff, Attending MD Encounter Type: Pre-Outpt Allergies, Adverse Reactions, Alerts No Known Medication [...] Refills, Maintenance, 04/19/24 3:29:00 PM EST, Tablet, [facility]/pharmacy #[id number], Partial fill upon patient request [...] Gm, 0 Refills, Maintenance, 04/19/24 3:29:00 PMEST, [place], [id number], Partial fill upon patient request [...] 11 Refills, Maintenance, 04/19/24 4:12:00 PM EST, [facility]/pharmacy #[id number], Partial fill upon patient request [...] Personnel Name: Apryl Bradley MD, V Position: [facility] Physician - Primary Care Member Role: PCP Address: [address] [place] [address] Telecom: Care Team Related Persons Name: LORENZO MEMBRENO Insurance Providers Guarantor name: JAYLA TEMI Health Plan Information #: 1 Payer: [employer] H[employer] POS Member Number: [id number] Policy Number: NA Group Number: NA Health Plan Information #: 2 Payer: [place] Member Number: [id number] Policy Number: NA Group Number: NA Health Plan Information #: 3 Payer: CIGNA O MVP Member Number: NA Policy Number: NA Group Number: NA
--- OUTSIDE RECORDS SUMMARY | 2024-08-09 17:32 | XMS_ITS | Clinical Summary ---
Author Organization [facility] Address [address] [place] [address] Care Team Providers Care Assistant To The Vice President Name Role Phone Terry Parr NP Primary [...] (obstructive sleep apnea) 11/11/2021 Overview (04/30/2022): PSG [place] 06/20/2012 (wt 210 lbs) Mild AHI 8, [...] continue CPAP at current settings. Smoking cessation. [employer] documentation. Assessment & Plan (03/02/2022 8:11 PM [...] 6-9.8, EPR 2; adjusted climate settings; contacted [facility] for mask fitting. I'm impressed by his use/benefit/symptomatic improvement over the first 21 nights; suspect seasonal changes in humidity, anxiety/motivation are surmountable barriers to compliance. He is willing to continue CPAP. Reviewed [employer] documentation Assessment & Plan (12/01/2021 12:09 PM [...] sleep study for night of 11/29/2021 through [facility]. He agrees to proceed, submitted prior authorization [...] incision and drainage. 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 [...] of depression. Currently working with Clinton at [facility] in [place], [place]. In remission on suboxone. Assessment & [...] would like to stay out of the [facility] as he knows he will be [...] 19, 2019. Patient has checked himself into [facility] and is very concerned about his detoxing. [...] in his detox. The patient, paperwork from [facility] was supposed to be sent to the [...] 19, 2019. Patient has checked himself into [facility] and is very concerned about his detoxing. [...] in his detox. The patient, paperwork from [facility] was supposed to be sent to the [...] expected week of 02/03 Completed treatement at [facility] ID Dr. Eaton with Mavyret 2019. Assessment & Plan (08/05/2020 5:26 PM EDT): [place], advised follow-up with [facility] regarding this for further treatment Assessment & [...] bottle of medication, and since being in [facility] he has not received any of [...] bottle of medication, and since being in [facility] he has not received any of [...] psychiatrist that patient states is from [facility] in [place], [place]. It is unclear if patient means [facility], as this office does have a [place] location. An Internet search did not reveal location for a [facility]. Patient was prescribed a 30-day supply [...] psychiatrist that patient states is from [facility] in [place], [place]. It is unclear if patient means [facility], as this office does have a [place] location. An Internet search did not reveal a was for location for a [facility] [employer] [facility]. Patient was prescribed a 30-day supply [...] COVID-19. Patient is unable to present to [place] but will seek testing at local pharmacy. [...] plan. PLAN -After discussion patient determined that [facility] emergency department would be the best location for patient given patient's home location. This NURSING EDUCATION CONSULTANT called over report to ED, also updated on-call provider (Dr. Oreilly). Routine general medical exam ination at [facility] 08/05/2020 11/25/2021 Assessment & Plan (08/05/2020 [...] He states that he initially presented to [facility] was prescribed an oral antibiotic. He cannot recall the name of this antibiotic and he never picked up the antibiotic. Patient entered [facility] on Thursday 03/22 to undergo treatment for [...] He states that he initially presented to [facility] was prescribed an oral antibiotic. He cannot recall the name of this antibiotic and he never picked up the antibiotic. Patient entered [facility] on Thursday 03/22 to undergo treatment for his polysubstance abuse. He was sent from [facility] recovery due to to his symptoms [...] was such that at a visit to [place] he required Mckinney catheter placement. Per urology's [...] was such that at a visit to [place] he required Mckinney catheter placement. Per urology's [...] try to obtain a psychiatric consult from [facility] to assist with medication management that I would then manage with their assistance. In the meantime also try to get him into [place] or other local agencies, but unlikely to be able to see a new prescriber for several months and I do not think we want to wait that long to start treating him. Call was made to [facility] to try to facilitate this process. We [...] of 2 - PCV) 2001 COVID-19 Vaccine ( - 2023-2 5 season) 2024 05/21/2021, 10/28/2020, 09/24/2020 Influenza Vaccine (#1) 2024 , 02/01/2019, 04/18/2016, Additional history exists Alcohol/Substance Use Screening 05/22/2024 Depression Screening and Follow-Up 05/22/20242022 Social Drivers of Health Meghann ual Screening 05/22/2024 DTaP,Tdap,and Td Vaccines (4 - Td or Tdap) 08/24/2032 08/24/2022, 11/11/2021, 03/16/2009 RSV Vaccine (60+ years old a nd patients) (1 - 1-dose 75+ series) 2057 HIV Screening Completed 04/03/2019, 11/20, 01/03/2013, Additional history exists Procedures * Due to [place] state law, this organization might not be [...] Agents on File Name Relationship Healthcare Agent Relationshi p Communication Bhavik Plascencia Father Health Care Agent Care Teams Assistant To The Vice President Relationship Specialty Start Date End Date Terry Parr NP [address] [place] [address] PCP - General Family Medicine 08/24/23
--- OUTSIDE RECORDS SUMMARY | 2024-08-09 17:32 | XMS_ITS | Clinical Summary ---
Author Organization [facility] Address [address] [place] [address] Care Team Providers Care Cork Floor Installer Name Role Phone Unknown Pcp, Non Rmg [...] age to complete this topic Insurance [address] ROSSANA WADE [id number] [facility] DIRECT (NETWORK COMMERCIAL-OUT OF NETWORK) * Guarantor: [id number] [employer] Account Type Relation to Patient Date of Phone Billing Address [employer]er[employer] [address] [place] [address] [employer] * Guarantor: [id number] [employer] Account Type Relation to Patient Date of Phone Billing Address [employer] [address] [place] [address] [employer]ERS [employer]ATION * Guarantor: EMELY BASILIO Account Type Relation to Patient Date of Phone Billing Address Occupational [employer] [address] [place] [address] * Guarantor: Deven [employer] Account Type Relation to Patient Date of Phone Billing Address Occupational [place] ATTN: A/P [address] [address] [place] [address] * Guarantor: Deven [employer] Account Type Relation to Patient Date of Phone Billing Address Occupational [employer] [address] ATTN: A/P [address] [place] [address] Care Teams Cork Floor Installer Relationship Specialty Start Date End Date Unknown Pcp, Non Rmg PCP - General 05/18/19
--- OUTSIDE RECORDS SUMMARY | 2024-08-09 17:32 | XMS_ITS | Clinical Summary ---
Author Organization [facility] Address [address] [place] [address], [address] Care Team Providers Care Citizenship Teacher Name Role Phone Unavailable Primary Care Provider Unavailabl e Social History Tobacco Use Types Packs/Day Years Used Date Smoking Tobacco: Never Assessed Sex and Gender Information Value Date Recorded Sex Assigned at Not on file Gender Identity Not on file Sexual Orientation Not on file Plan of Treatment Not on file
--- OUTSIDE RECORDS SUMMARY | 2024-08-09 17:32 | XMS_ITS | Continuity of Care Document ---
Author Organization [facility] Address [address] [place] [address]- Care Team Providers Care Boat Ride Operator Name Role Phone Apryl Bradley MD, V Primary Care Physician Encounter [facility] Date(s): 07/16/24 - 07/23/24 [facility] [address] [place], [place] [address] Attending Physician: Apryl Bradley MD, V Encounter Type: Office Visit Allergies, Adverse Reactions, Alerts No Known Medication [...] tablet = 40 mg, By Mouth, Daily, # 90 tablet, 3 Refills, Maintenance, 07/16/24 4:44:00 PM EST, [facility]t, [id number], Partial fill upon patient request if the prescription is for a schedule II opioid drug., 176, cm, 07/16/24 16:26:00 EST, Height, 90.8, kg, 07/16/24 16:26:00 EST, Dry Weight Start Date: 07/16/24 Status: Ordered Quantity: 90.0 Unit: tablet Repeat number: 4 bisacodyl 10 mg rectal suppository 1 supp = 10 mg, Rectally, Daily, PRN for constipation, # 10 supp, 0 Refills, Maintenance, 07/17/24 9:00:00 AM EST, Suppository, [facility]/pharmacy #[id number], Partial fill upon patient request if the prescription is for a schedule II opioid drug., 176, cm, 07/16/24 16:26:00 EST, Height, 90.8, kg, 07/16/24 16:26:00 EST, Dry Weight Start Date: 07/17/24 Status: Ordered Quantity: 10.0 Unit: supp Repeat number: 1 busPIRone 10 mg oral [...] Refills, Maintenance, 04/19/24 3:29:00 PM EST, Tablet, [facility]/pharmacy #[id number], Partial fill upon patient request [...] Gm, 0 Refills, Maintenance, 04/19/24 3:29:00 PMEST, [place], [id number], Partial fill upon patient request if the prescription is for a schedule II opioid drug., 1 sprays Nares, Both 2 times a day, 176, cm, 04/19/24 14:59:00 EST, Height, 84, kg, 12/07/23 0:07:00 EDT, Dry Weight Start Date: 04/19/24 Status: Ordered Quantity: 16.0 Unit: g Repeat number: 1 Indication: Allergic rhinitis, unspecified magnesium citrate 8.85% oral liquid 150 mL = 8.725 Gm, By Mouth, Once, If after 2 hours there is no response, take other half, # 300 mL, 0 Refills, Soft Stop, 07/17/24 9:00:00 AM EST, Liquid, [id number], Partial fill upon patient request if the prescription is for a schedule II opioid drug., 150 mL By Mouth Once,Instr:If after2 hours there is no response, take other half, 176, cm, 07/16/24 16:26:00 EST, Height, 90.8, kg, 07/16/24 16:26:00 EST, Dry Weight Start Date: 07/17/24 Status: Ordered Quantity: 300.0 Unit: mL Repeat number: 1 nicotine 2 mg oral transmucosal lozenge 1 [...] not chew or swallow whole, 176, cm, 11/29/24 14:59:00 EST, Height, 84, kg, 12/07/23 0:07:00 EDT, Dry Weight Start Date: 04/19/24 Stop Date: 09/05/25 Status: Ordered Quantity: 360.0 Unit: lozenge Repeat number: 12 Indication: Nicotine dependence, cigarettes, uncomplicated Prilosec 20 mg oral enteric coated capsule 1 capsule = 20 mg, By Mouth, Daily, 0 Refills, Maintenance, 02/17/17 6:17:16 PM EDT Start Date: 02/17/17 Status: Ordered Repeat number: 1 senna - oral tablet 2 tablet, By Mouth, Daily at bedtime, PRN for constipation, # 60 tablet, 0 Refills, Maintenance, 07/17/24 8:59:00 AM EST, Tablet, [facility]/pharmacy #[id number], Partial fill upon patient request if the prescription is for a schedule II opioid drug., 176, cm, 07/16/24 16:26:00 EST, Height, 90.8, kg, 07/16/24 16: 26:00 EST, Dry Weight Start Date: 07/17/24 Status: Ordered Quantity: 60.0 Unit: tablet Repeat number: 1 Sublocade 100 mg/0.5 mL [...] Cocaine use disorder in remission Confirmed Active Other constipation Confirmed Active ELIZABETH (generalized anxiety disorder) Confirmed Active History of opioid abuse Confirmed Active History of hepatitis C Confirmed Active History of intravenous drug use in remission Confirmed Active Other insomnia Confirmed Active Mixed hyperlipidemia Confirmed Active Obstructive sleep apnea Confirmed Active Establishing care with new doctor, encounter for Confirmed Active Physical exam Confirmed Active Mild recurrent major depression Confirmed Active Allergic rhinitis Confirmed Active Vital Signs Most recent to oldest [Reference Range]: 1 Height 176 cm (07/16/24 4:26 PM) Weight 90.8 kg (07/16/24 4:26 PM) Oxygen Saturation [94-100 %] 96 % (07/16/24 4:26 PM) Pulse Rate [55-90 bpm] 89 bpm (07/16/24 4:26 PM) Body Mass Index [18.5-24.99 kg/m2] 29.31 kg/m2 *H* (07/16/24 4:26 PM) Blood Pressure [90-138/55-84 mm Hg] 126/ 83mm Hg (07/16/24 4:26 PM) Mode of Delivery (Oxygen) Room air (07/16/24 4: PM) Blood pressure sites Arm, right (07/16/24 4: PM) Dry Weight 90.8 kg (07/16/24 4:26 PM) Weight Obtained Via Standing scale (07/16/24 4:26 PM) Dry Weight Obtained Via Standing scale (07/16/24 4:26 PM) Social History Social History Type Response Smoking Status 10 or more cigarette s (1/2 pack or more)/day in last 30 days; Type: Cigarettes; Tobacco use times per day: 1ppd; Number of years: 28; Total pack years: 28; Started at age: 15; entered on: 04/19/24 Sex Sex Representation Male (finding) Patient Care team information Care Team Personnel Name: Kirk WARE, Apryl Camacho Position: S Physician - Primary Care Member Role: PCP Address: [address] [place] [address] Telecom: Care Team Related Persons Name: LORENZO MEMBRENO Insurance Providers Guarantor name: JAYLA MEMBRENO Health Plan Information #: 1 Payer: CIGNA HMO POS Member Number: [id number] Policy Number: NA Group Number: NA Health Plan Information #: 2 Payer: CIGNA PPO MVP Member Number: [id number] Policy Number: NA Group Number: [id number]
== END ==
LOC: HO.HCC 16:10
DX: F11.21 Opioid dependence, in remission (principal)

== ENCOUNTER → 2024-08-09 16:10 | Outpatient (BNVA) | payer OTHER, SELFPAY | DX: F11.21 Opioid dependence, in remission (principal) | CPT/HCPCS: 96372; Q9991; Q9992 ==

== ENCOUNTER 2024-09-06 07:56 | Outpatient (AMB) | payer OTHER, SELFPAY ==
--- OUTSIDE RECORDS SUMMARY | 2024-09-06 07:59 | XMS_ITS | Clinical Summary ---
Author Organization [facility] Address [address] [place] [address], [address] Care Team Providers Care Mechanical Tech Name Role Phone Unavailable Primary Care Provider Unavailabl e Social History Tobacco Use Types Packs/Day Years Used Date Smoking Tobacco: Never Assessed Sex and Gender Information Value Date Recorded Sex Assigned at Not on file Gender Identity Not on file Sexual Orientation Not on file Plan of Treatment Not on file
--- OUTSIDE RECORDS SUMMARY | 2024-09-06 07:59 | XMS_ITS | Clinical Summary ---
Author Organization [facility] Address [address] [place] [address] Care Team Providers Care Clinical Sales Consultant Name Role Phone Terry Parr NP Primary [...] (obstructive sleep apnea) 11/11/2021 Overview (04/30/2022): PSG [place] 06/20/2012 (wt 210 lbs) Mild AHI 8, [...] continue CPAP at current settings. Smoking cessation. [employer] documentation. Assessment & Plan (03/02/2022 8:11 PM [...] 6-9.8, EPR 2; adjusted climate settings; contacted [facility] for mask fitting. I'm impressed by his use/benefit/symptomatic improvement over the first 21 nights; suspect seasonal changes in humidity, anxiety/motivation are surmountable barriers to compliance. He is willing to continue CPAP. Reviewed [employer] documentation Assessment & Plan (12/01/2021 12:09 PM [...] sleep study for night of 11/29/2021 through [employer]. He agrees to proceed, submitted prior authorization [...] incision and drainage. 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 [...] of depression. Currently working with Clinton at [facility] in [place], [place]. In remission on suboxone. Assessment & [...] would like to stay out of the [facility] as he knows he will be [...] 19, 2019. Patient has checked himself into [facility] and is very concerned about his [...] in his detox. The patient, paperwork from [facility] was supposed to be sent [...] 19, 2019. Patient has checked himself into [facility] and is very concerned about his [...] in his detox. The patient, paperwork from [facility] was supposed to be sent to [...] expected week of 02/03 Completed treatement at [facility] ID Dr. Eaton with Mavyret 2019. Assessment & Plan (08/05/2020 5:26 PM EDT): [place], advised follow-up with [facility] regarding this for further treatment Assessment & [...] bottle of medication, and since being in [facility] [place] [facility] he has not received any of [...] bottle of medication, and since being in [facility] he has not received any of [...] psychiatrist that patient states is from [facility] in [place], [place]. It is unclear if patient means [facility], as this office does have a [place] location. An Internet search did not reveal location for a [facility]. Patient was prescribed a 30-day supply of [...] psychiatrist that patient states is from [facility] in [place], [place]. It is unclear if patient means [facility], as this office does have a [place] location. An Internet search did not reveal a was for location for a [facility] [employer] [facility]. Patient was prescribed a 30-day supply [...] COVID-19. Patient is unable to present to [place] but will seek testing at local pharmacy. [...] plan. PLAN -After discussion patient determined that [facility] emergency department would be the best location for patient given patient's home location. This FOREIGN BANKNOTE TELLER called over report to ED, also updated on-call provider (Dr. Oreilly). Routine general medical exam ination at [facility] 08/05/2020 11/25/2021 Assessment & Plan [...] He states that he initially presented to [facility] was prescribed an oral antibiotic. He cannot recall the name of this antibiotic and he never picked up the antibiotic. Patient entered [facility] on Thursday 03/22 to undergo treatment [...] He states that he initially presented to [facility] was prescribed an oral antibiotic. He cannot recall the name of this antibiotic and he never picked up the antibiotic. Patient entered [facility] on Thursday 03/22 to undergo treatment for his polysubstance abuse. He was sent from [facility] recovery due to to his [...] was such that at a visit to [place] he required Mckinney catheter placement. Per urology's [...] was such that at a visit to [place] he required Mckinney catheter placement. Per urology's [...] try to obtain a psychiatric consult from [facility] to assist with medication management that I would then manage with their assistance. In the meantime also try to get him into [facility] or other local agencies, but unlikely to be able to see a new prescriber for several months and I do not think we want to wait that long to start treating him. Call was made to [facility] to try to facilitate this process. [...] 2023-2 5 season) 2024 05/21/2021, 10/28/2020, 09/24/2020 Alcohol/Substance Use Screening 05/22/2024 Depression Screening and Follow-Up 05/22/20242022 Social Drivers of Health Meghann ual Screening 05/22/2024 Influenza Vaccine (Season Ended) 2025 05/21/2021, 02/01/2019, 04/18/2016, Additional history exists DTaP,Tdap,and Td Vaccines (4 - Td or Tdap) 08/24/2032 08/24/2022, 11/11/2021, 03/16/2009 RSV Vaccine (60+ years old a nd patients) (1 - 1-dose 75+ series) 2057 HIV Screening Completed 04/03/2019, 11/20, 01/03/2013, Additional history exists Procedures * Due to [place] state law, this organization might not be [...] Plascencia Father Health Care Agent Care Teams Clinical Sales Consultant Relationship Specialty Start Date End Date Terry Parr NP [address] [place] [address] PCP - General Family Medicine 08/24/23
--- OUTSIDE RECORDS SUMMARY | 2024-09-06 07:59 | XMS_ITS | Clinical Summary ---
Author Organization [facility] Address [address] [place] [address] Care Team Providers Care Critical Power Technician Name Role Phone Harry Pinon MD Primary Care Provider [phone] Allergies No known active allergies Medications omeprazole [...] HM Modifier)([facility]) 1982 Hepatitis C Virus Infection in Adolescents and Adults: Screening (or Modifier) ([facility]) 2000 SDOH Screening Reminder: Meghann tenishallnivia for all adults ([facility]) 2000 Tobacco Smoking Cessation: i n Adults excluding Women: Behavioral and Pharmacotherapy Interventions ([facility]) 2000 DTaP/Tdap/Td Vaccines ([facility]) (1 - Tdap) 2001 Lipid Screening: Every 5 yrs for Men aged 35+ (or HM Modifier) ([facility]) 2018 COVID-19 Vaccine Screening: Initial Series and Booster Status ([facility]) ( - 2023- season) 2024 Flu Vaccination: Yearly for ages 18mos through 64 years (or Modifier)([facility]) 12/20/2024 Zoster/Shingles Vaccine Seri es Screening: Adults aged 18+ yrs (or HM Modifiers)([facility]) (1 of 2) 2032 Pneumococcal Vaccination Scr eening: Pts 0-19 & 19-49 yrs of age ([facility]) Aged Out No longer eligible based on patient's age to complete this topic Medical Devices Not on file Insurance [employer] Care Teams Critical Power Technician Relationship Specialty Start Date End Date Harry Pinon MD [facility] [address] [place] [address] PCP - Shellfish Processing Laborer 09/06/19
--- OUTSIDE RECORDS SUMMARY | 2024-09-06 07:59 | XMS_ITS | Referral Summary ---
Author Organization [facility] Address [address] [place] [address] Care Team Providers Care Dockmaster Name Role Phone Terry Parr NP Primary [...] (obstructive sleep apnea) 11/11/2021 Overview (04/30/2022): PSG [place] 06/20/2012 (wt 210 lbs) Mild AHI 8, [...] continue CPAP at current settings. Smoking cessation. [employer] documentation. Assessment & Plan (03/02/2022 8:11 PM [...] 6-9.8, EPR 2; adjusted climate settings; contacted [facility] for mask fitting. I'm impressed by his use/benefit/symptomatic improvement over the first 21 nights; suspect seasonal changes in humidity, anxiety/motivation are surmountable barriers to compliance. He is willing to continue CPAP. Reviewed [employer] documentation Assessment & Plan (12/01/2021 12:09 PM [...] sleep study for night of 11/29/2021 through [employer]. He agrees to proceed, submitted prior authorization [...] incision and drainage. 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 [...] depression. Currently working with Clinton at [facility] in [place], [place]. In remission on suboxone. Assessment & [...] would like to stay out of the [facility] as he knows he will be [...] 19, 2019. Patient has checked himself into [facility] and is very concerned about his [...] in his detox. The patient, paperwork from [facility] was supposed to be sent [...] 19, 2019. Patient has checked himself into [facility] and is very concerned about his [...] in his detox. The patient, paperwork from [facility] was supposed to be sent to [...] multiple condyloma's in the perianal area. On TERYR there does not appear to be condyloma [...] expected week of 02/03 Completed treatement at [facility] ID Dr. Eaton with Mavyret 2019. Assessment & Plan (08/05/2020 5:26 PM EDT): [place], advised follow-up with [facility] regarding this for further treatment Assessment [...] bottle of medication, and since being in [facility] he has not received any of [...] bottle of medication, and since being in [facility] he has not received any of [...] psychiatrist that patient states is from [facility] in [place], [place]. It is unclear if patient means [facility], as this office does have a [place] location. An Internet search did not reveal location for a [facility]. Patient was prescribed a 30-day supply [...] psychiatrist that patient states is from [facility] in [place], [place]. It is unclear if patient means [facility], as this office does have a [place] location. An Internet search did not reveal a was for location for a [facility] [employer] [facility]. Patient was prescribed a 30-day supply of [...] COVID-19. Patient is unable to present to [place] but will seek testing at local pharmacy. [...] plan. PLAN -After discussion patient determined that [facility] emergency department would be the best location for patient given patient's home location. This RN INFORMATICS called over report to ED, also updated on-call provider (Dr. Oreilly). Routine general medical exam ination at [facility] 08/05/2020 11/25/2021 Assessment & Plan (08/05/2020 [...] He states that he initially presented to [facility] was prescribed an oral antibiotic. He cannot recall the name of this antibiotic and he never picked up the antibiotic. Patient entered [facility] on Thursday 03/22 to undergo treatment [...] He states that he initially presented to [facility] was prescribed an oral antibiotic. He cannot recall the name of this antibiotic and he never picked up the antibiotic. Patient entered [facility] on Thursday 03/22 to undergo treatment for his polysubstance abuse. He was sent from [facility] recovery due to to [...] was such that at a visit to [place] he required Mckinney catheter placement. Per urology's [...] was such that at a visit to [place] he required Mckinney catheter placement. Per urology's [...] try to obtain a psychiatric consult from [facility] to assist with medication management that I would then manage with their assistance. In the meantime also try to get him into [place] or other local agencies, but unlikely to be able to see a new prescriber for several months and I do not think we want to wait that long to start treating him. Call was made to [facility] to try to facilitate this process. We [...] Date Recorded Please jayde the areas for [facility] the patient would like information or assistance: None Apply 02/05/2023 Lack of Transportation (Medical) Not on file 02/05/2023 Housing Stability Answer Date Recorded Please jayde the areas for [facility] the patient would like information or assistance: [...] Not on file Procedures * Due to [place] state law, this organization might not be [...] Agents on File Name Relationship Healthcare Agent [facility] Communication Bhavik Plascencia [facility] Health Care Agent Care Teams Dockmaster Relationship Specialty Start Date End Date Terry Parr NP [address] [place] [id number] PCP - General Family Medicine 08/24/23
--- OUTSIDE RECORDS SUMMARY | 2024-09-06 07:59 | XMS_ITS | Continuity of Care Document ---
Author Organization [facility] Address [address] [place] [address]- Care Team Providers Care Senior Security Architect Name Role Phone Kirk WARE, Apryl Camacho Primary Care Physician Encounter [facility] Date(s): 08/06/24 - 09/05/[address] [address]- Attending Physician: Yashira Jones Admitting Physician: Yashira Jones Referring Physician: Admtr ArTyesha Encounter Type: Triage Allergies, Adverse Reactions, Alerts [...] Refills, Maintenance, 07/16/24 4:44:00 PM EST, Tablet, [facility]/pharmacy #[id number], Partial fill upon patient request [...] Refills, Maintenance, 07/17/24 9:00:00 AM EST, Suppository, [facility]/pharmacy #[id number], Partial fill upon patient request if the prescription is for a schedule II opioid drug., 176, cm, 07/16/24 16:26:00 EST, Height, 90.8, kg, 07/16/24 16:26:00 EST, Dry Weight Start Date: 07/17/24 Status: Ordered Quantity: 10.0 Unit: supp Repeat number: 1 busPIRone 10 mg oral tablet 30 mg, 3, tablet, 540 each, 0 Refill(s), TAKE 2 TABLETS BY MOUTH 3 TIMES DAILY, Refills 0, :13:00 PM EST, Partial fill upon patient request if the prescription is for a schedule II opioid drug. Start Date: 04/19/24 Status: Ordered Repeat number: 1 cetirizine 10 mg oral tablet 1 tablet = 10 mg, By Mouth, Daily, # 30 tablet, 0 Refills, Maintenance, 04/19/24 3:29:00 PM EST, Tablet, [facility]/pharmacy #[id number], Partial fill upon patient request if the prescription is for a schedule IIopioid drug., 176, cm, 04/19/24 14:59:00 EST, Height, 84, kg, 12/07/23 0:07:00 EDT, Dry Weight Start Date: 04/19/24 Status: Ordered Quantity: 30.0 Unit: tablet Repeat number: 1 Indication: Allergic rhinitis, unspecified Clonidine = 0.2 mg, By Mouth, 3 times a day, [...] Gm, 0 Refills, Maintenance, 04/19/24 3:29:00 PMEST, [place], [id number], Partial fill upon patient request [...] Refills, Maintenance, 07/17/24 8:59:00 AM EST, Tablet, [facility]/pharmacy #[id number], Partial fill upon patient request [...] Status Informant Anogenital HPV infection Confirmed Active Chronic insomnia Confirmed Active Cigarette smoker Confirmed Active Cocaine [...] Personnel Name: Apryl Bradley MD, V Position: [facility] Physician - Primary Care Member Role: PCP Address: [address] [place] [address] Telecom: Care Team Related Persons Name: LORENZO MEMBRENO Insurance Providers Guarantor name: JAYLA MEMBRENO [facility] Plan Information #: 1 [facility] Member Number: NA Policy Number: NA Group Number: NA
--- OUTSIDE RECORDS SUMMARY | 2024-09-06 07:59 | XMS_ITS | Clinical Summary ---
Author Organization [facility] Address [address] [place] [address] Care Team Providers Care Nanotechnology Engineering Technologist Name Role Phone Unknown Pcp, Non Rmg [...] age to complete this topic Insurance [address] [place]SANA WADE [address] [facility] DIRECT (NETWORK COMMERCIAL-OUT OF NETWORK) * Guarantor: [id number] [employer] Account Type Relation to Patient Date of Phone Billing Address Worker's Comp [address] [place] [address] WORKERS COMPENSATION * Guarantor: [id number] [employer] Account Type Relation to Patient Date of Phone Billing Address Worker's Comp [address] [place] [address] [employer]ERS [employer]ENSATION * Guarantor: EMELY BASILIO Account Type Relation to Patient Date of Phone Billing Address Occupational [employer] [address] [place] [address] * Guarantor: Deven [employer] Account Type Relation to Patient Date of Phone Billing Address Occupational [employer] ATTN: A/P [address] [address] [place] [address] * Guarantor: Deven [employer] Account Type Relation to Patient Date of Phone Billing Address Occupational [employer] [address] ATTN: A/P [address] [place] [address] Care Teams Nanotechnology Engineering Technologist Relationship Specialty Start Date End Date Unknown Pcp, Non Rmg PCP - General 05/18/19
--- OUTSIDE RECORDS SUMMARY | 2024-09-06 07:59 | XMS_ITS | Data Portability ---
Author Organization [place] - [facility] [place], [facility] - INPATIENT Address [address] [facility] [place] [address] Care Team Providers Care Fitness Manager Name Role Phone LUDY POWER Ict Support Engineer TRINA GACRIA Referring Provider Assessment Encounter Date Assessment Date [...] BOSTON 2015 016 ATHENAFAX [facility] - Mri, [address] [place] [address], [place], [address], 6 14:41:28 x-ray, shoulder - AP/ GRASHEY/AX ILLARY (if pt unable to do axillary please do VELPEAU AXILLARY) 2014 015 [email or web address] Not available 5 11:41:50 Medication Orders oxycodone 5 mg tablet 2014 015 [id number], [address], [place], [id number], 5 12:43:50 Patient TargetsNo targets recorded. Patient [...] MSSA SCREEN BY PCR normal Not Available [facility] (Lab) [address] [place], [address], 10/28/2014 08:56:24 10/24/19 15 10/20/2014 MRI, shoul alice No observ ation record ed. [email or web address] Not Available 10/23 17:49:13 10/29/19 15 helder ble shoul alice right No observ ation record ed. [address], [address] 04/29/2015 04:01:03 10/29/19 15 10/28/2014 helder ble shoul alice right Fin al Report EXAM#: [id number] PROCED URE: OR 0032 PORTAB LE [...] LANGSTON M.D. On: Oct 28 2014 12:01P [facility] [address] [place], [address], 04/29/2015 04:01:03 10/29/19 15 helder ble shoul alice right No observ ation record ed. [address], [address] 04/29/2015 04:01:03 Result Notes None recorded. Problems Name Problem SNOMED Code Status Onset Date Resolution Date Notes Provider Name and Address Organization Details Recorded Time Rupture of pectoralis major muscle 666539896 Active Jennifer devi [facility] 5 10:50:31 Shoulder pain 11671989 Active Jennifer devi [facility] [place] 6 10:19:02 Strain of tendon of upper arm 659196014 Active Jennifer Loza [facility] [place] 5 09:56:16 Problem Notes None recorded. Procedures Surgical History Date Name Laterality Status Provider Name and Address Organization Details Recorded Time 10/29/19 15 Orthopaedic Surgery completed Suly Dickens [facility] [place] 12/16/2014 11:51:43 Imaging Results Imaging Date Name Status LastModified by Organiz ation Details LastModified Time 10/20/2014 MRI, shoulder completed [email or web address] Information not available 10/23/2014 17:49:13 10/28/2014 portable shoulder right completed [address], [address] 04/29/2015 04:01:03 10/28/2014 portable shoulder right completed [facility] [address] [place], [address], 04/29/2015 04:01:03 10/28/2014 portable shoulder right completed [address], [address] 04/29/2015 04:01:03 Procedure Notes None recorded. Medical [...] Updated DateTime 11/13/2014 175.26 cm 23.6 kg/m2 49461.7792 g Suly Maninder [facility] [place] 11/13/2014 10:34:15 Date Recorded Body height Body mass index (BMI) Body weight Provider Name and Address Organization Details Last Updated DateTime 12/11/2014 175.26 cm 23.6 kg/m2 86783.7792 g Ryan Dickey [facility] [place] 12/11/2014 12:59:42 Date Recorded Body height Body mass index (BMI) Body weight Provider Name and Address Organization Details Last Updated DateTime 03/05/2015 175.26 cm 21.4 kg/m2 16020.89846 g [facility] [place] 03/05/2015 12:43:50 Date Recorded Body weight Body mass index (BMI) Body height Provider Name and Address Organization Details Last Updated DateTime 05/20/2015 95314.19023 g 25.8 kg/m2 175.26 cm Prosper [facility] [place] 05/20/2015 09:17:54 Date Recorded Body mass index (BMI) Body weight Body height Provider Name and Address Organization Details Last Updated DateTime 06/19/2015 25.8 kg/m2 38340.88279 g 175.26 cm Ryan [facility] [place] 06/19/2015 11:48:21 Social History Question Answer Notes LastModified by Organizat ion Details LastModified Time Tobacco Smoking Status Current Every Day Smoker Chacha devi [facility] [place] 10/23/2014 17:10:13 Auto Related Injury? 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 No Information not available 03/05/2015 Work Related Injury? Yes Information not available 03/05/2015 Sex: Unknown Functional Status Question Answer Note LastModified by Organization D etails LastModified Time What is your exercise level? None Information not available 03/05/2015 Mental Status None recorded. Family History Nothing Reported. Medical History Condition Response HIV or AIDS N High Blood Pressure N Irregular Heartbeat N Any Other Significant Medical Issues N Weight Gain / Loss N Hearing Loss N Angina, Heart Failure or Attack N Night Sweats N Seizures / Epilepsy N Osteoarthritis / Rheumatoid arthritis / Other N Cancer N Stroke N Ulcer / Stomach Bleeding / Indigestion N Visual Loss or Glaucoma N Blood Clots / Phlebitis N Heart Problems N Depression or Anxiety Y Emphysema / Chronic Bronchitis N Reaction to General/Local Anesthesia N Hepatitis / Jaundice Y Kidney / Bladder Infections N Diabetes N Bleeding Disorder N Chemical Dependency / Alcoholism N Thyroid Disorder N Psoriasis / Skin Rash N Heart Disease N Pulmonary Embolism N Asthma / Shortness of Breath / Sleep Cold Work Operator ea (please specify) N Past Encounters Encounter ID Performer Location Encounter Start Date Encounter Closed Date Diagnosis/Indication Diagnosis SNOMED-CT Code Diagnosis ICD10 Code Diagnosis Note [id number] Iona Aguirre [facility] Office [address] [place], [place] [address] 10/23/2014 16:36:01 10/23/2014 17:42:38 Rupture of pectoralis major muscle [id number] [facility] Office [address] [place] [phone] 11/13/2014 09:57:50 11/13/2014 11:27:50 Shoulder pain 78016886 Rupture of pectoralis major muscle 314469925 [id number] Prosper Solis [facility] Office [address] [place] [phone] 12/11/2014 12:53:08 12/11/2014 13:16:26 Rupture of pectoralis major muscle 499325005 [id number] CK ARRIETA MD [facility] Office [address] [place] [phone] 03/05/2015 12:28:54 03/05/2015 13:10:50 Shoulder pain 36558675 M25.511 Strain of tendon of upper arm 558294175 S46.811D [id number] CK ARRIETA MD [facility] Office [address] [place] [phone] 05/20/2015 09:06:10 05/20/2015 09:54:16 Shoulder pain 14210917 M25.511 [id number] CK ARRIETA MD [facility] am Office [address] [place] [phone] [id number] 06/19/2015 11:25:26 06/19/2015 12:23:36 Shoulder pain 60107586 M25.511 Health Concerns Section Related Observation LastModified [...] Cisco Paul 12/11/2014 [employer] Cisco Paul 03/05/2015 [employer] Cisco Paul 05/20/2015 [employer] [facility] [employer] Cisco Paul 06/19/2015 [employer] - [facility] [employer] Pual Notes Date Note Type Note Provider Name and Address Organization Details Recorded Time 11/13/2014 text/html HPI He is status post a pectoralis major repair. He is doing great.? CK ARRIETA MD [address] [place] [address], [phone], [facility] [place] 11/13/2014 12:55:00 12/11/2014 text/html HPI He is six weeks out from a pectoralis major repair. He is doing okay. He is in a little more pain than I would like.? CK ARRIETA MD [address] [place] [address], [phone], [facility] 12/16/2014 11:03:45 03/05/2015 text/html HPI He is status post a pectoralis major repair in October. His pectoralis repair looks great. He is still having some pain posteriorly which I think is from the retractors. He has not been able to do therapy and he is stiff, so I think he essentially has some mild frozen shoulder.? CK ARRIETA MD [address] [place] [address], [phone], [facility] 03/09/2015 08:50:38 05/20/2015 text/html HPI The patient had a pectoralis major repair back in October. He is doing great.? CK ARRIETA MD [address] [place] [address], [phone], [facility] [place] 05/21/2015 05:41:23 06/19/2015 text/html HPI HISTORY: The [...] a big injury initially.? CK ARRIETA MD [address] [place] [address], [phone], [facility] [place] 06/25/2015 10:29:31
[2024-09-06 08:18] VITALS: BP 118/78; RESP 18
--- NOTE | 2024-09-06 08:18 | AM.OFFVISNUR ---
Vital Signs 09/06/24 08:18 BP 118/78 Blood Pressure Location Rt brachial Position Sitting Respiration 18 Intake Visit Reasons: Sublocade Allergies No Known Allergies Allergy (Verified 08/09/24 16:18) Nursing Note Cisco presents for 4 week follow-up Sublocade injection. Cisco is alert and oriented x4, appropriate affect;he reports stability in recovery. Cisco denies cravings and any negative withdrawal sx. 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 Injection given without issue. Four week follow-up scheduled upon departure. Office Meds Sublocade 100 mg/0.5 mL solution,extended release subcutaneous syringe Performing Provider: Kimberly Eaton MD Performing Location: [facility] Administered by: Adelaide Ruggiero RN on 09/06/24 08:48 Dose Route Admin Location Dispensed Lot Number Expiration Date [facility] Wire Repairer 100 mg subcut RUQ 0.5 mL [id number] 07/19/25 [address]-1 [employer]. Comments: Patient denies concerns with previous injection and tolerated injection well. Educated on signs and symptoms of infection, encouraged to call [facility] with any questions or concerns, Pt verbalized understanding. Follow up appointment scheduled in 4 weeks. Assessment & Plan Assessment & Plan Orders: Orders AMB Buprenorphine Injection Today F11.21 - Opioid dependence, in remission Coding
== END 2024-09-06 08:55 | disposition home or self-care (01) ==
LOC: HO.HCC 07:56
DX: F11.21 Opioid dependence, in remission (principal)

== ENCOUNTER → 2024-09-06 07:56 | Outpatient (BNVA) | payer OTHER, SELFPAY | DX: F11.21 Opioid dependence, in remission (principal) | CPT/HCPCS: 96372; Q9991 ==

== ENCOUNTER 2024-10-02 16:08 | Outpatient (AMB) | payer OTHER, SELFPAY ==
--- OUTSIDE RECORDS SUMMARY | 2024-10-02 16:10 | XMS_ITS | Continuity of Care Document ---
Author Organization [facility] Address [address] [place] [address]- Care Team Providers Care Pulp Press Tender Name Role Phone Apryl Bradley MD, V Primary Care Physician Encounter [facility] Date(s): 07/16/24 - 09/28/24 [facility] [address] [place], [place] [address] Attending Physician: Apryl Bradley MD, V Encounter Type: Pre Office Visit Allergies, Adverse Reactions, Alerts No [...] Refills, Maintenance, 07/16/24 4:44:00 PM EST, Tablet, [id number], Partial fill upon patient request [...] Refills, Maintenance, 07/17/24 9:00:00 AM EST, Suppository, [id number], Partial fill upon patient request [...] Refills, Maintenance, 04/19/24 3:29:00 PM EST, Tablet, [id number], Partial fill upon patient request [...] Gm, 0 Refills, Maintenance, 04/19/24 3:29:00 [facility]ME[facility], [place], [id number], Partial fill upon patient request [...] Refills, Maintenance, 07/17/24 8:59:00 AM EST, Tablet, [id number], Partial fill upon patient request [...] Personnel Name: Apryl Bradley MD, V Position: [facility] Physician - Primary Care Member Role: PCP Address: [address] [place] [address] Telecom: Care Team Related Persons Name: LORENZO MEMBRENO Insurance Providers Guarantor name: JAYLA MEMBRENO Health Plan Information #: 1 Payer: [employer] Member Number: [id number] Policy Number: NA Group Number: [id number] Health Plan Information #: 2 Payer: [employer] Member Number: [id number] Policy Number: NA Group Number: [id number]
--- OUTSIDE RECORDS SUMMARY | 2024-10-02 16:10 | XMS_ITS | Clinical Summary ---
Author Organization [facility] Address [address] [place] [address] Care Team Providers Care Driver Education Road Instructor Name Role Phone Terry Parr NP Primary [...] (obstructive sleep apnea) 11/11/2021 Overview (04/30/2022): PSG Arnett 06/20/2012 (wt 210 lbs) Mild AHI 8, [...] continue CPAP at current settings. Smoking cessation. [employer] documentation. Assessment & Plan (03/02/2022 8:11 PM [...] is willing to continue CPAP. Reviewed [employer] documentation Assessment & Plan (12/01/2021 12:09 PM [...] sleep study for night of 11/29/2021 through [employer]. He agrees to proceed, submitted prior authorization [...] incision and drainage. 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 [...] of depression. Currently working with [place] at [facility] in [place], [place]. In remission on suboxone. Assessment & [...] would like to stay out of the [facility] as he knows he will be [...] 19, 2019. Patient has checked himself into [facility] and is very concerned about his [...] in his detox. The patient, paperwork from [facility] was supposed to be sent to [...] 19, 2019. Patient has checked himself into [facility] and is very concerned about his [...] in his detox. The patient, paperwork from [facility] was supposed to be sent to [...] expected week of 02/03 Completed treatement at [facility] ID Dr. Eaton with [facility] 2019. Assessment & Plan (08/05/2020 5:26 PM EDT): [place], advised follow-up with [facility] regarding this for further treatment Assessment [...] bottle of medication, and since being in [facility] he has not received any of [...] bottle of medication, and since being in [facility] he has not received any of [...] psychiatrist that patient states is from [facility] in [place], [place]. It is unclear if patient means [facility], as this office does have a [place] location. An Internet search did not reveal location for a [facility]. Patient was prescribed a 30-day supply of [...] psychiatrist that patient states is from [facility] in [place], [place]. It is unclear if patient means [facility], as this office does have a [place] location. An Internet search did not reveal a was for location for a [facility] [employer] [facility]. Patient was prescribed a 30-day [...] COVID-19. Patient is unable to present to [place] but will seek testing at local pharmacy. [...] plan. PLAN -After discussion patient determined that [facility] emergency department would be the best location for patient given patient's home location. This NETWORK OPERATIONS MANAGER called over report to ED, also updated on-call provider (Dr. Oreilly). Routine general medical exam ination at [facility] 08/05/2020 11/25/2021 Assessment & Plan [...] He states that he initially presented to [facility] was prescribed an oral antibiotic. He cannot recall the name of this antibiotic and he never picked up the antibiotic. Patient entered [facility] on Thursday 03/22 to undergo treatment [...] He states that he initially presented to [facility] was prescribed an oral antibiotic. He cannot recall the name of this antibiotic and he never picked up the antibiotic. Patient entered [facility] on Thursday 03/22 to undergo treatment for his polysubstance abuse. He was sent from [facility] with recovery due to to [...] was such that at a visit to [place] he required Mckinney catheter placement. Per urology's [...] was such that at a visit to [place] he required Mckinney catheter placement. Per urology's [...] try to obtain a psychiatric consult from [facility] to assist with medication management that I would then manage with their assistance. In the meantime also try to get him into [place] or other local agencies, but unlikely to be able to see a new prescriber for several months and I do not think we want to wait that long to start treating him. Call was made to [facility] to try to facilitate this process. [...] Additional history exists Procedures * Due to [place] state law, this organization might not be [...] Plascencia Father Health Care Agent Care Teams Driver Education Road Instructor Relationship Specialty Start Date End Date Terry Parr NP [address] [place] [address] PCP - General Family Medicine 08/24/23
--- OUTSIDE RECORDS SUMMARY | 2024-10-02 16:10 | XMS_ITS | Clinical Summary ---
Author Organization [facility] Address [address] [place] [address] Care Team Providers Care Superintendent Stevedoring Name Role Phone Unknown Pcp, Non Rmg [...] age to complete this topic Insurance [address] ROSSANA WADE [address] [facility] (NETWORK COMMERCIAL-OUT OF NETWORK) * Guarantor: [id number] [employer] Account Type Relation to Patient Date of Phone Billing Address Worker's Comp [address] [place] [address] [employer] * Guarantor: [id number] [employer] Account Type Relation to Patient Date of Phone Billing Address Work[employer] [address] [place] [address] [employer] * Guarantor: EMELY BASILIO Account Type Relation to Patient Date of Phone Billing Address Occupational [employer] [address] [place] [address] * Guarantor: Deven [employer] Account Type Relation to Patient Date of Phone Billing Address [employer]ational [employer] ATTN: A/P [address] [address] [place] [address] * Guarantor: Deven [employer] Account Type Relation to Patient Date of Phone Billing Address [employer]ational [employer] [address] ATTN: A/P [address] [place] [address] Care Teams Superintendent Stevedoring Relationship Specialty Start Date End Date Unknown Pcp, Non Rmg PCP - General 05/18/19
--- OUTSIDE RECORDS SUMMARY | 2024-10-02 16:10 | XMS_ITS | Data Portability ---
Author Organization [place] [facility] [place], [facility] - INPATIENT Address [address] [facility] [place] [address] Care Team Providers Care Physical Metallurgist Name Role Phone LUDY POWER [employer] [phone] TRINA GARCIA Referring Provider Assessment Encounter Date [...] [place] 2015 016 ATHENAFAX [facility]. - Mri, [address] [place] [address], [place], [address], 6 14:41:28 x-ray, shoulder - AP/ GRASHEY/AX ILLARY (if pt unable to do axillary please do [facility]) 2014 015 lcondito Not available 5 11:41:50 Medication Orders oxycodone 5 mg tablet 2014 015 [id number], [address], [place], [id number], 5 12:43:50 Patient TargetsNo targets recorded. Patient [...] MSSA SCREEN BY PCR normal Not Available [facility] (Lab) [address] [place], [address], 10/28/2014 08:56:24 10/24/19 15 10/20/2014 MRI, shoul alice No observ ation record ed. [email or web address] Not Available 10/23 17:49:13 10/29/19 15 helder ble shoul alice right No observ ation record ed. [address], [address] 04/29/2015 04:01:03 10/29/19 15 10/28/2014 helder ble shoul alice right Fin al Report EXAM#: [id number] PROCED URE: OR 0032 PORTAB LE [...] LANGSTON M.D. On: Oct 28 2014 12:01P [facility] [address] [place], [address], 04/29/2015 04:01:03 10/29/19 15 helder ble shoul alice right No observ ation record ed. [address], [address] 04/29/2015 04:01:03 Result Notes None recorded. Problems Name Problem SNOMED Code Status Onset Date Resolution Date Notes Provider Name and Address Organization Details Recorded Time Rupture of pectoralis major muscle 178597011 Active Jennifer Loza [facility] [place] 5 10:50:31 Pain of shoulder region 77638709 Active Jennifer devi [facility] [place] 6 10:19:02 Strain of tendon of upper arm 326020412 Active Jennifer Loza [facility] [place] 5 09:56:16 Problem Notes None recorded. Procedures Surgical History Date Name Laterality Status Provider Name and Address Organization Details Recorded Time 10/29/19 15 Orthopaedic Surgery completed Suly Dickens [facility] [place] 12/16/2014 11:51:43 Imaging Results Imaging Date Name Status LastModified by [facility] Details LastModified Time 10/20/2014 MRI, shoulder completed [email or web address] Information not available 10/23/2014 17:49:13 10/28/2014 portable shoulder right completed [address], [address] 04/29/2015 04:01:03 10/28/2014 portable shoulder right completed [facility] [address] [place], [address], 04/29/2015 04:01:03 10/28/2014 portable shoulder right completed [address], [address] 04/29/2015 04:01:03 Procedure Notes None recorded. Medical [...] Not Available Not Available omeprazole 20 mg capsule,rdaha yed release TAKE 2 CAPSULES BY MOUTH [...] Updated DateTime 11/13/2014 175.26 cm 23.6 kg/m2 95445.7792 g Suly Dickens [facility] [place] 11/13/2014 10:34:15 Date Recorded Body height Body mass index (BMI) Body weight Provider Name and Address Organization Details Last Updated DateTime 12/11/2014 175.26 cm 23.6 kg/m2 30701.7792 g Ryan Dickey [facility] [place] 12/11/2014 12:59:42 Date Recorded Body height Body mass index (BMI) Body weight Provider Name and Address Organization Details Last Updated DateTime 03/05/2015 175.26 cm 21.4 kg/m2 65725.93615 g [facility] [place] 03/05/2015 12:43:50 Date Recorded Body weight Body mass index (BMI) Body height Provider Name and Address Organization Details Last Updated DateTime 05/20/2015 96632.64948 g 25.8 kg/m2 175.26 cm Prosper [facility] [place] 05/20/2015 09:17:54 Date Recorded Body mass index (BMI) Body weight Body height Provider Name and Address Organization Details Last Updated DateTime 06/19/2015 25.8 kg/m2 47818.49887 g 175.26 cm Ryan [facility] [place] 06/19/2015 11:48:21 Social History Question Answer Notes LastModified by Organizat ion Details LastModified Time Tobacco Smoking Status Current Every Day Smoker Chacha devi [facility] [place] 10/23/2014 17:10:13 Auto Related Injury? No Information not available 03/05/2015 Have You Had Cortisone? No Information not available 03/05/2015 Work Related Injury? 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 None Information [...] Disorder N Chemical Dependency / Alcoholism N Psoriasis / Skin Rash N Thyroid Disorder N Heart Disease N Asthma / Shortness of Breath / Sleep Electrical Assembly Technician ea (please specify) N Pulmonary Embolism N Past Encounters Encounter ID Performer Location Encounter Start Date Encounter Closed Date Diagnosis/Indication Diagnosis SNOMED-CT Code Diagnosis ICD10 Code Diagnosis Note [id number] CK ARRIETA MD [facility] Office [address] [place] [phone] 10/23/2014 16:36:01 10/23/2014 17:42:38 Rupture of pectoralis major muscle 687310705 [id number] CK ARRIETA MD [facility] Office [address] [place] [id number] 11/13/2014 09:57:50 11/13/2014 11:27:50 Pain of shoulder region 59333054 Rupture of pectoralis major muscle 884535752 [id number] CK ARRIETA MD [facility] Office [address] [place] [phone] 1 12/11/2014 12:53:08 12/11/2014 13:16:26 Rupture of pectoralis major muscle 940514535 [id number] CK ARRIETA MD [facility] Office [address] [place] [address] 03/05/2015 12:28:54 03/05/2015 13:10:50 Pain of shoulder region 15643011 M25.511 Strain of tendon of upper arm 503435533 S46.811D [id number] CK ARRIETA MD [facility] Office [address] [place] [id number] 05/20/2015 09:06:10 05/20/2015 09:54:16 Pain of shoulder region 66489752 M25.511 [id number] CK ARRIETA MD [facility] Office [address] [facility] [address] [place] [address] 06/19/2015 11:25:26 06/19/2015 12:23:36 Pain of shoulder region 88526574 M25.511 Health Concerns Section Related Observation LastModified by Organization Detai ls LastModified Time None Recorded Concern Status LastModified by Organization Details LastModified Time None Recorded Advance Directives Directive None Recorded Payers Insurance Date Sequence Insurance Name Policy Number Policy Gomes Covered Member ID Gomes Member ID Guarantor Name 11/06/2014 [employer] Miller 03/09/2015 [employer] Paul 03/09/2015 [employer] [facility] [employer] Miller Notes Date Note Type Note Provider Name and Address Organization Details Recorded Time 11/13/2014 text/html HPI He is status post a pectoralis major repair. He is doing great.? CK ARRIETA MD [address] [place] [address], [phone], [facility] [place] 11/13/2014 12:55:00 12/11/2014 text/html HPI He is six weeks out from a pectoralis major repair. He is doing okay. He is in a little more pain than I would like.? CK ARRIETA MD [address] [place] [address], [phone], [facility] [place] 12/16/2014 11:03:45 03/05/2015 text/html HPI He is status post a pectoralis major repair in October. His pectoralis repair looks great. He is still having some pain posteriorly which I think is from the retractors. He has not been able to do therapy and he is stiff, so I think he essentially has some mild frozen shoulder.? CK ARRIETA MD [address] [place] [address], [phone], [facility] [place] 03/09/2015 08:50:38 05/20/2015 text/html HPI The patient had a pectoralis major repair back in October. He is doing great.? CK ARRIETA MD [address] [place], [address], [facility] [place] 05/21/2015 05:41:23 06/19/2015 text/html HPI HISTORY: The [...] a big injury initially.? CK ARRIETA MD [address] [place], [address], [facility] [place] 06/25/2015 10:29:31
--- OUTSIDE RECORDS SUMMARY | 2024-10-02 16:10 | XMS_ITS | Referral Summary ---
Author Organization [facility] Address [address] [place] [address] Care Team Providers Care Director Franchise Sales Name Role Phone Terry Parr NP Primary [...] (obstructive sleep apnea) 11/11/2021 Overview (04/30/2022): PSG Perry 06/20/2012 (wt 210 lbs) Mild AHI 8, [...] continue CPAP at current settings. Smoking cessation. [facility] [facility] documentation. Assessment & Plan (03/02/2022 8:11 PM [...] 6-9.8, EPR 2; adjusted climate settings; contacted [facility] for mask fitting. I'm impressed by his use/benefit/symptomatic improvement over the first 21 nights; suspect seasonal changes in humidity, anxiety/motivation are surmountable barriers to compliance. He is willing to continue CPAP. Reviewed [employer] documentation Assessment & Plan (12/01/2021 12:09 PM [...] sleep study for night of 11/29/2021 through [employer]. He agrees to proceed, submitted prior authorization [...] incision and drainage. 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 [...] depression. Currently working with [place] at [facility] in [place], [place]. In remission on suboxone. Assessment & [...] would like to stay out of the [facility] as he knows he will be [...] 19, 2019. Patient has checked himself into [facility] and is very concerned about his detoxing. [...] in his detox. The patient, paperwork from [place] [facility] was supposed to be sent to the [...] 19, 2019. Patient has checked himself into [facility] and is very concerned about his detoxing. [...] in his detox. The patient, paperwork from [facility] was supposed to be sent to the [...] expected week of 02/03 Completed treatement at [facility] ID Dr. Eaton with Mavyret 2019. Assessment & Plan (08/05/2020 5:26 PM EDT): [place], advised follow-up with [facility] regarding this for further treatment Assessment [...] bottle of medication, and since being in [place] recovery he has not received any of [...] bottle of medication, and since being in [place] recovery he has not received any of [...] psychiatrist that patient states is from [facility] in [place], [place]. It is unclear if patient means [facility], as this office does have a [place] location. An Internet search did not reveal location for a [facility]. Patient was prescribed a 30-day supply [...] psychiatrist that patient states is from [facility] in [place], [place]. It is unclear if patient means [facility], as this office does have a [place] location. An Internet search did not reveal a was for location for a [facility]. Patient was prescribed a 30-day supply [...] COVID-19. Patient is unable to present to [place] but will seek testing at local pharmacy. [...] plan. PLAN -After discussion patient determined that [facility] emergency department would be the best location for patient given patient's home location. This CLINICAL REHAB LIAISON called over report to ED, also updated on-call provider (Dr. Oreilly). Routine general medical exam in[facility] 08/05/2020 11/25/2021 Assessment & Plan (08/05/2020 [...] He states that he initially presented to [facility] was prescribed an oral antibiotic. He cannot recall the name of this antibiotic and he never picked up the antibiotic. Patient entered [facility] on Thursday 03/22 to undergo treatment for [...] He states that he initially presented to [facility] was prescribed an oral antibiotic. He cannot recall the name of this antibiotic and he never picked up the antibiotic. Patient entered [facility] on Thursday 03/22 to undergo treatment for his polysubstance abuse. He was sent from [facility] with recovery due to to his [...] was such that at a visit to [place] he required Mckinney catheter placement. Per urology's [...] was such that at a visit to [place] he required Mckinney catheter placement. Per urology's [...] try to obtain a psychiatric consult from [facility] to assist with medication management that I would then manage with their assistance. In the meantime also try to get him into [place] or other local agencies, but unlikely to be able to see a new prescriber for several months and I do not think we want to wait that long to start treating him. Call was made to [facility] to try to facilitate this [...] Date Recorded Please jayde the areas for [facility] the patient would like information or assistance: None Apply 02/05/2023 Lack of Transportation (Medical) Not on file 02/05/2023 Housing Stability Answer Date Recorded Please jayde the areas for [facility] the patient would like information or assistance: [...] Not on file Procedures * Due to [place] state law, [...] on File Name Relationship Healthcare Agent [facility] Communication Bhavik Plascencia [facility] Health Care Agent Care Teams Director Franchise Sales Relationship Specialty Start Date End Date Terry Parr NP [address] [place] [address] PCP - General Family Medicine 08/24/23
--- OUTSIDE RECORDS SUMMARY | 2024-10-02 16:10 | XMS_ITS | Continuity of Care Document ---
Author Organization [facility] Address [address] [place] [address]- Care Team Providers Care Computer Networking Instructor Adjunct Name Role Phone Kirk WARE, Apryl Camacho Primary Care Physician Encounter [facility] [place] [place] Date(s): 08/29/24 - 09/28/24 [facility] [address] [place], [place] [address] Attending Physician: Yashira Jones Admitting Physician: Yashira [...] Refills, Maintenance, 07/16/24 4:44:00 PM EST, Tablet, [facility]/pharmacy #[id number], Partial fill upon [...] Refills, Maintenance, 07/17/24 9:00:00 AM EST, Suppository, [facility]/pharmacy #[id number], Partial fill upon [...] Refills, Maintenance, 04/19/24 3:29:00 PM EST, Tablet, [facility]/pharmacy #[id number], Partial fill upon [...] Gm, 0 Refills, Maintenance, 04/19/24 3:29:00 PMEST, [place], [facility]/pharmacy #[id number], Partial fill upon [...] Soft Stop, 07/17/24 9:00:00 AM EST, Liquid, [facility]/pharmacy #[id number], Partial fill upon [...] Refills, Maintenance, 07/17/24 8:59:00 AM EST, Tablet, [facility]/pharmacy #[id number], Partial fill upon [...] Personnel Name: Kirk WARE, Apryl Camacho Position: [facility] Physician - Primary Care Member Role: PCP Address: [address] [place] [address] Telecom: Care Team Related Persons Name: LORENZO MEMBRENO Insurance Providers Guarantor name: JAYLA MEMBRENO [facility] Plan Information #: 1 Payer: [facility] [employer] Member Number: NA Policy Number: NA Group Number: NA
--- OUTSIDE RECORDS SUMMARY | 2024-10-02 16:10 | XMS_ITS | Clinical Summary ---
Author Organization [facility] Address [address] [place] [address] Care Team Providers Care Language Specialist Name Role Phone Harry Pinon MD Primary Care Provider [phone] Allergies No known active allergies Medications omeprazole [...] Adults 18 yrs or above (or HM Modifier)([facility]) 2000 Hepatitis C Virus Infection in Adolescents and Adults: Screening (or Modifier) ([facility]) 2000 SDOH Screening Reminder: Meghann tenishallnivia for all adults ([facility]) 2000 Tobacco Smoking Cessation: i n Adults excluding Women: Behavioral and Pharmacotherapy Interventions ([facility]) 2000 DTaP/Tdap/Td Vaccines ([facility]) (1 - Tdap) 2001 Lipid Screening: Every 5 yrs for Men aged 35+ (or HM Modifier) ([facility]) 2018 COVID-19 Vaccine Screening: Initial Series and Booster Status ([facility]) ( - 2023- season) 2024 Flu Vaccination: Yearly for ages 18mos through 64 years (or Modifier)([facility]) 12/20/2024 Zoster/Shingles Vaccine Seri es Screening: Adults aged 18+ yrs (or HM Modifiers)([facility]) (1 of 2) 2032 Pneumococcal Vaccination Scr eening: Pts 0-19 & 19-49 yrs of age ([facility]) Aged Out No longer eligible based on patient's age to complete this topic Medical Devices Not on file Insurance [employer] Care Teams Language Specialist Relationship Specialty Start Date End Date Harry Pinon MD [facility] [address] [place] [address] PCP - Integrity Assessor 09/06/19
[2024-10-02 16:42] VITALS: BP 124/88; PULSE 91; O2SAT 98
--- NOTE | 2024-10-02 16:42 | AM.OFFVISNUR ---
Vital Signs 10/02/24 16:42 Height 5 ft 9 in Pulse 91 Pulse Source Pulse Oximeter Pulse Oximetry (%) 98 Oxygen Delivery Method Room Air Intake Visit Reasons: Injection Allergies No Known Allergies Allergy (Verified 08/09/24 16:18) Results AMB 14 Panel Urine Drug Screen Urine Marijuana (THC) Negative Last Edit by Shun Rocha CMA on 10/02/24 16:44 Urine Cocaine Negative Last Edit by Shun Rocha CMA on 10/02/24 16:44 Urine Morphine Negative Last Edit by Shun Rocha CMA on 10/02/24 16:44 Urine Methamphetamine Negative Last Edit by Shun Rocha CMA on 10/02/24 16:44 Urine Amphetamine Negative Last Edit by Shun Rocha CMA on 10/02/24 16:44 Urine Benzodiazepine Positive Last Edit by Shun Rocha CMA on 10/02/24 16:44 Urine Barbiturates Negative Last Edit by Shun Rocha CMA on 10/02/24 16:44 Urine Methadone Negative Last Edit by Shun Rocha CMA on 10/02/24 16:44 Urine Buprenorphine Positive Last Edit by Shun Rocha CMA on 10/02/24 16:44 Urine Tricyclic Antidepressant Positive Last Edit by Shun Rocha CMA on 10/02/24 16:44 Urine MDMA Negative Last Edit by Shun Rocha CMA on 10/02/24 16:44 Urine Oxycodone Negative Last Edit by Shun Rocha CMA on 10/02/24 16:44 Urine Phencyclidine Negative Last Edit by Shun Rocha CMA on 10/02/24 16:44 Urine Propoxyphene Negative Last Edit by Shun Rocha CMA on 10/02/24 16:44 Assessment & Plan Assessment & Plan Orders: Orders AMB 14 Panel Urine Drug Screen Today Z51.81 - Encounter for therapeutic drug level monitoring Coding
--- NOTE | 2024-10-02 17:24 | AM.OFFVISNUR ---
Vital Signs 10/02/24 16:42 Height 5 ft 9 in BP 124/88 Blood Pressure Location Rt brachial Position Sitting Pulse 91 Pulse Source Pulse Oximeter Pulse Oximetry (%) 98 Oxygen Delivery Method Room Air Intake Visit Reasons: Injection Allergies No Known Allergies Allergy (Verified 08/09/24 16:18) Nursing Note Cisco presents for his 4 week OUD check in and Sublocade injection. Cisco reports doing well in recovery, no negative symptoms or breakthrough cravings. Cisco did report ongoing issues with constipation. He has discussed with his primary to the extent of utilizing Senna daily and having to resort to occasional laxative to move his bowels. He reports that this has been a chronic usp issue and only has one bowel movement per week, he has adjusted his diet and fluid intake. Provider was consulted and prescription for Naloxegol (Movantik) written. Reviewed contraindications with Cisco and he wants to go forward with PA process. Will begin PA process. Appointment made for 4 weeks for next injection. Office Meds Sublocade 100 mg/0.5 mL solution,extended release subcutaneous syringe Performing Provider: Kimberly Eaton MD Performing Location: [facility] Administered by: Adelaide Ruggiero RN on 10/02/24 17:25 Dose Route Admin Location Dispensed Lot Number Expiration Date [facility] Supervisory Geographer 100 mg subcut LUQ 0.5 mL [id number] 08/19/25 [address]-6 [employer]). Comments: Pt here for 4 week OUD check in and Sublocade injection. No issues or concerns with previous injections; he tolerated injection well. Educated on signs and symptoms of infection, urged to call the office with any questions or concerns. Pt verbalized understanding. Results AMB 14 Panel Urine Drug Screen Urine Marijuana (THC) Negative Last Edit by Shun Rocha CMA on 10/02/24 16:44 Urine Cocaine Negative Last Edit by Shun Rocha CMA on 10/02/24 16:44 Urine Morphine Negative Last Edit by Shun Rocha CMA on 10/02/24 16:44 Urine Methamphetamine Negative Last Edit by Shun Rocha CMA on 10/02/24 16:44 Urine Amphetamine Negative Last Edit by Shun Rocha CMA on 10/02/24 16:44 Urine Benzodiazepine Positive Last Edit by Shun Rocha CMA on 10/02/24 16:44 Urine Barbiturates Negative Last Edit by Shun Rocha, JOSE MANUEL on 10/02/24 16:44 Urine Methadone Negative Last Edit by Shun Rocha, JOSE MANUEL on 10/02/24 16:44 Urine Buprenorphine Positive Last Edit by Shun Rocha, JOSE MANUEL on 10/02/24 16:44 Urine Tricyclic Antidepressant Positive Last Edit by Shun Rocha, JOSE MANUEL on 10/02/24 16:44 Urine MDMA Negative Last Edit by Shun Rocha, JOSE MANUEL on 10/02/24 16:44 Urine Oxycodone Negative Last Edit by Shun Rocha, JOSE MANUEL on 10/02/24 16:44 Urine Phencyclidine Negative Last Edit by Shun Rocha, JOSE MANUEL on 10/02/24 16:44 Urine Propoxyphene Negative Last Edit by Shun Rocha, JOSE MANUEL on 10/02/24 16:44 Assessment & Plan Assessment & Plan Orders: Orders AMB Buprenorphine Injection - Patient Supplied Today F11.21 - Opioid dependence, in remission, F11.90 - Opioid use, unspecified, uncomplicated AMB 14 Panel Urine Drug Screen Today Z51.81 - Encounter for therapeutic drug level monitoring Medications: New Sublocade ER (buprenorphine) 100 mg (0.5 mL) subcut ONCE 0.5 mL 0RF NS F11.21 - Opioid dependence, in remission, F11.90 - Opioid use, unspecified, uncomplicated Coding
== END 2024-10-02 17:07 | disposition home or self-care (01) ==
LOC: HO.HCC 16:08
DX: F11.21 Opioid dependence, in remission (principal); Z51.81 Encounter for therapeutic drug level monitoring

== ENCOUNTER → 2024-10-02 16:08 | Outpatient (BNVA) | payer OTHER, SELFPAY | DX: F11.21 Opioid dependence, in remission (principal); Z51.81 Encounter for therapeutic drug level monitoring; Z79.899 Other long term (current) drug therapy | CPT/HCPCS: 96372; Q9992 ==

== ENCOUNTER 2024-10-30 15:51 | Outpatient (AMB) | payer OTHER, SELFPAY ==
--- NOTE | 2024-10-30 16:37 | AM.OFFVISNUR ---
Intake Visit Reasons: Injection sublocade @ 4:30 Allergies No Known Allergies Allergy (Verified 08/09/24 16:18) Nursing Note Cisco presents for 4 week OUD check in and Sublocade 100 mg injection. Cisco reports stability at current dose and denies any negative symptoms or breakthrough cravings. Cisco reports continued issues with constipation- will continue authorization for Naloxogel with [employer]. Follow-up appointment made for 4 weeks, will update Cisco as authorization proceeds. Office Meds Sublocade 100 mg/0.5 mL solution,extended release subcutaneous syringe Performing Provider: Kimberly Eaton MD Performing Location: [facility] Administered by: Adelaide Ruggiero RN on 10/30/24 16:43 Dose Route Admin Location Dispensed Lot Number Expiration Date [facility] Assembly Supervisor 100 mg subcut LLQ 0.5 mL [id number] 09/18/25 [address]-1 [employer]. Comments: Pt here for 100mg Sublocade, denies complications with previous injections and tolerated injection well. Pt educated on signs and symptoms of infection at injection site, urged to call [facility] with any questions or concerns. Follow up appointment made for 4 weeks. Assessment & Plan Assessment & Plan Orders: Orders AMB Buprenorphine Injection - Patient Supplied Today F11.21 - Opioid dependence, in remission Medications: New Sublocade ER (buprenorphine) 100 mg (0.5 mL) subcut ONCE 0.5 mL 0RF NS F11.21 - Opioid dependence, in remission Coding
--- OUTSIDE RECORDS SUMMARY | 2024-10-30 18:08 | XMS_ITS | Clinical Summary ---
Author Organization [employer] [facility] Address [address] [place] [address] Care Team Providers Care Honeycomb Decapper Name Role Phone Harry Pinon MD Primary Care Provider [phone] Allergies No known active allergies Medications omeprazole [...] Adults 18 yrs or above (or HM Modifier)([facility]) 2000 Hepatitis C Virus Infection in Adolescents and Adults: Screening (or Modifier) ([facility]) 2000 SDOH Screening Reminder: Meghann ually for all adults ([facility]) 2000 Tobacco Smoking Cessation: i n Adults excluding Women: Behavioral and Pharmacotherapy Interventions ([facility]) 2000 DTaP/Tdap/Td Vaccines ([facility]) (1 - Tdap) 2001 COVID-19 Vaccine Screening: Initial Series and Booster Status ([facility]) (2023- season) 2024 Flu Vaccination: Yearly for ages 18mos through 64 years (or Modifier)([facility]) 12/20/2024 Zoster/Shingles Vaccine Seri es Screening: Adults aged 18+ yrs (or HM Modifiers)([facility]) (1 of 2) 2032 Pneumococcal Vaccination Scr eening: Pts 0-19 & 19-49 yrs of age ([facility]) Aged Out No longer eligible based on patient's age to complete this topic Medical Devices Not on file Insurance Intent HQ Care Teams Honeycomb Decapper Relationship Specialty Start Date End Date Harry Pinon MD [facility] [address] [place] [id number] PCP - Tire Rebuilder 09/06/19
== END 2024-10-30 16:52 | disposition home or self-care (01) ==
LOC: HO.HCC 15:51
DX: F11.21 Opioid dependence, in remission (principal)

== ENCOUNTER → 2024-10-30 15:51 | Outpatient (BNVA) | payer OTHER, SELFPAY | DX: F11.21 Opioid dependence, in remission (principal) | CPT/HCPCS: 96372; Q9992 ==

== ENCOUNTER 2024-11-27 14:54 | Outpatient (AMB) | payer OTHER, SELFPAY ==
--- NOTE | 2024-11-27 15:08 | AM.OFFVISNUR ---
Intake Visit Reasons: Injection sublocade Allergies No Known Allergies Allergy (Verified 08/09/24 16:18) Nursing Note Cisco presents for 4 week OUD check in and Sublocade 100 mg injection. Cisco reports stability at current dose and denies any negative symptoms. He reported that the Naloxegol was backordered but is now in and he was picking it up today, he will follow up with the office with any questions or concerns. Office Meds Sublocade 100 mg/0.5 mL solution,extended release subcutaneous syringe Performing Provider: Kimberly Eaton MD Performing Location: [facility] Administered by: Adelaide Ruggiero RN on 11/27/24 15:44 Dose Route Admin Location Dispensed Lot Number Expiration Date [facility] Wood Getter 100 mg subcut RLQ 0.5 mL [id number] 09/18/25 [address]-5 [employer] Total Dispensed Waste 0.5 mL 0 % Comments: Pt here for 100mg Sublocade, denies complications with previous injections and tolerated injection well. Pt educated on signs and symptoms of infection at injection site, urged to call [facility] with any questions or concerns. Follow up appointment made for 4 weeks. Assessment & Plan Assessment & Plan Orders: Orders AMB Buprenorphine Injection - Patient Supplied Today F11.21 - Opioid dependence, in remission Coding
--- OUTSIDE RECORDS SUMMARY | 2024-11-27 15:21 | XMS_ITS | Clinical Summary ---
Author Organization [facility] Address [address] [place] [address], [address] Care Team Providers Care Broacher Name Role Phone Unavailable Primary Care Provider Unavailabl e Social History Tobacco Use Types Packs/Day Years Used Date Smoking Tobacco: Never Assessed Sex and Gender Information Value Date Recorded Sex Assigned at Not on file Gender Identity Not on file Sexual Orientation Not on file Plan of Treatment Not on file
--- OUTSIDE RECORDS SUMMARY | 2024-11-27 15:21 | XMS_ITS | Clinical Summary ---
Author Organization [facility] Address [address] [place] [address] Care Team Providers Care Bag Press Operator Name Role Phone Terry Parr NP [...] MD APPT 18 g 2 3 Active Additional Information Patient not taking.Reported on 11/15/2024 omeprazole (PriLOSEC) 40 mg capsule Take 1 capsule (40 mg total) by mouth once a day. 90 capsule 3 4 Active amitriptyline (ELAVIL) 150 mg tablet Take 1 tablet (150 mg total) by mouth nightly. 90 tablet 4 Active tamsulosin (FLOMAX) 0.4 mg capsule TAKE 1 CAPSULE (0.4 MG TOTAL) BY MOUTH EVERY DAY 90 capsule 4 Active Additional Information Patient not taking.Reported on 11/15/2024 buprenorphine- naloxone (SUBOXONE) 8-[address] 1 Film (8 mg of buprenorphine total) under the tongue every 12 hours for 28 days. 56 Film 4 Active Additional Information Patient not taking.Reported on 11/15/2024 atorvastatin (LIPITOR) 40 mg tablet TAKE 1 [...] (obstructive sleep apnea) 11/11/2021 Overview (04/30/2022): [facility] [place] 06/20/2012 (wt 210 lbs) Mild AHI 8, [...] continue CPAP at current settings. Smoking cessation. [facility] documentation. Assessment & Plan (03/02/2022 8:11 PM [...] 2; adjusted climate settings; contacted [facility] mask [facility]. I'm impressed by his use/benefit/symptomatic improvement over the first 21 nights; suspect seasonal changes in humidity, anxiety/motivation are surmountable barriers to compliance. He is willing to continue CPAP. Reviewed [employer] documentation Assessment & Plan (12/01/2021 12:09 PM [...] sleep study for night of 11/29/2021 through [facility]. He agrees to proceed, submitted prior authorization [...] incision and drainage. Patient does have a kalsominer and will contact them for an appointment. [...] [facility] at [facility] in [place], [place]. In remission on suboxone. Assessment & [...] would like to stay out of the [facility] as he knows he will [...] 19, 2019. Patient has checked himself into [facility] and is very concerned about his [...] in his detox. The patient, paperwork from [facility] was supposed to be sent to the [...] 19, 2019. Patient has checked himself into [facility] and is very concerned about his [...] in his detox. The patient, paperwork from [facility] was supposed to be sent to [...] & Plan (12/01/2021 1:27 PM EDT): -ice, briseyda, refer Physical therapy. Condyloma acuminatum 08/24/2016 Overview [...] expected week of 02/03 Completed treat[facility] at [facility]. Assessment & Plan (08/05/2020 5:26 PM EDT): [place], advised follow-up with [facility] regarding this for further treatment Assessment [...] bottle of medication, and since being in [facility] he has not received any of [...] bottle of medication, and since being in [facility] he has not received any of [...] new psychiatrist that patient states is from [facility] in [place], [place]. It is unclear if patient means [facility], as this office does have a [place] location. An Internet search did not reveal location for a [facility]. Patient was prescribed a 30-day supply of [...] new psychiatrist that patient states is from [facility] in [place], [place]. It is unclear if patient means [facility] [employer] [facility], as this office does have a [place] location. An Internet search did not reveal a was for location for a [employer]. Patient was prescribed a 30-day supply of [...] COVID-19. Patient is unable to present to [place] but will seek testing at local pharmacy. [...] plan. PLAN -After discussion patient determined that [facility] emergency department would be the best location for patient given patient's home location. This ROLL OVER PRESS OPERATOR called over report to ED, also updated on-call provider (Dr. Oreilly). Routine general medical exam ination at a health care facility 08/05/2020 11/25/2021 Assessment & [...] He states that he initially presented to [facility] was prescribed an oral antibiotic. He cannot recall the name of this antibiotic and he never picked up the antibiotic. Patient entered [facility] on Thursday 03/22 to undergo treatment [...] He states that he initially presented to [facility] was prescribed an oral antibiotic. He cannot recall the name of this antibiotic and he never picked up the antibiotic. Patient entered [facility] on Thursday 03/22 to undergo treatment for his polysubstance abuse. [facility] was [facility] recovery due to to his symptoms [...] was such that at a visit to [facility] he required Mckinney catheter placement. Per urology's [...] was such that at a visit to [facility] he required Mckinney catheter placement. Per urology's [...] try to obtain a psychiatric consult from [facility] to assist with medication management that I would then manage with their assistance. In the meantime also try to get him into [place] or other local agencies, but unlikely to be able to see a new prescriber for several months and I do not think we want to wait that long to start treating him. Call was made to [facility] to try to facilitate this process. We will try increasing the Cymbalta as he has had some luck with that medication Encounters Date Type Department Care Team Description 11/15/2024 2:41 PM EDT - 11/15/2024 11:59 PM EDT Hospital Encounter [facility] [address] [place] [address] [id number] Sports Team Marketing Intern: Mary Peterson PA MICHELLE (obstructive sleep apnea) (Primary Dx) Discharge Disposition: Home or Self Care () 11/08/2024 Telephone [facility] [address] [place] [phone] Sports Team Marketing Intern: Holly Villa PAC Appt Request - New from Last 3 Months Immunizations Immunization Administration [...] Sign Reading Time Taken Comments Blood Pressure 111/77 11/15/2024 2:48 PM EDT Pulse 80 11/15/2024 2:48 PM EDT Temperature 36.5 C (97.7 F) 02/06/2023 8:51 AM EDT Respiratory Rate 18 03/26/2020 5:36 PM EST Oxygen Saturation 98% 11/01/2022 11:36 AM EDT Inhaled Oxygen Concentration - - Weight 95.3 kg (210 lb) 11/15/2024 2:48 PM EDT Height 172.7 cm (5' 8 ) 11/15/2024 2:48 PM EDT Body Mass Index 31.93 11/15/2024 2:48 PM EDT Plan of Treatment Scheduled Procedures Name Priority Associated Diagnoses Date/Ti me DRUG-INDUCED SLEEP ENDOSCOPY MICHELLE (obstructive sleep apnea) Health Maintenance Due Date Last Done Comments Varicella Vaccines (1 of 2 - 13+ 2-dose series) 10/23/1995 Hepatitis B Vaccines (1 of 3 - 19+ 3-dose series) 2001 04/21/2009, 03/16/2008 Pneumococcal Vaccine: Pediat gina (0-5 Years) and At-Risk Patients (6-50 Years) (1 of 2 - PCV) 2001 COVID-19 Vaccine (4 - 2023-2 5 season) 2024 05/21/2021, 10/28/2020, 09/24/2020 Depression Screening and Follow-Up 05/22/20242022 Social Drivers of Health Meghann ual Screening 05/22/2024 Influenza Vaccine (#1) 2025 , 02/01/2019, 04/18/2016, Additional history exists DTaP,Tdap,and Td Vaccines (4 - Td or Tdap) 08/24/2032 08/24/2022, 11/11/2021, 03/16/2009 RSV Vaccine (60+ years old a nd patients) (1 - 1-dose 75+ series) 2057 HIV Screening Completed 04/03/2019, 11/20, 01/03/2013, Additional history exists Alcohol/Substance Use Screening Completed 5 Procedures * Due to [place] state law, this organization might not be [...] Agents on File Name Relationship Healthcare Agent [facility] Communication Bhavik Plascencia [facility] Care Agent Care Teams Bag Press Operator Relationship Specialty Start Date End Date Terry Parr NP [address] [place] [id number] PCP - General Family Medicine 08/24/23
--- OUTSIDE RECORDS SUMMARY | 2024-11-27 15:21 | XMS_ITS | Clinical Summary ---
Author Organization [facility] Address [address] [place] [address] Care Team Providers Care Transformer Builder Name Role Phone Unknown Pcp, Non Rmg [...] 88 03/13/2017 8:35 AM EDT Temperature 36.7 C (98 F) 2014 3:14 PM EDT Respiratory Rate 18 [...] - 2023-2 5 season) 2024 Influenza (#1) 2025 04/18/2016, 05/26/2015 Zoster (Shingrix) (1 of 2) [...] age to complete this topic Insurance [address] [place] [id number] [facility] DIRECT (NETWORK COMMERCIAL-OUT OF NETWORK) * Guarantor: [id number] [employer] Account Type Relation to Patient Date of Phone Billing Address Worker[employer] Comp [address] [place] [address] WORKERS COMPENSATION * Guarantor: [id number] [employer] Account Type Relation to Patient Date of Phone Billing Address [employer] [address] [place] [address] WORKERS COMPENSATION * Guarantor: EMELY BASILIO Account Type Relation to Patient Date of Phone Billing Address [facility] [employer] [address] [place] [address] Care Teams Transformer Builder Relationship Specialty Start Date End Date Unknown Pcp, Non Rmg PCP - General 05/18/19
== END 2024-11-27 16:44 | disposition home or self-care (01) ==
LOC: HO.HCC 14:55
DX: F11.21 Opioid dependence, in remission (principal)

== ENCOUNTER → 2024-11-27 14:54 | Outpatient (BNVA) | payer OTHER, SELFPAY | DX: F11.21 Opioid dependence, in remission (principal) | CPT/HCPCS: 96372; Q9992 ==

== ENCOUNTER 2024-12-25 15:27 | Outpatient (AMB) | payer OTHER, SELFPAY ==
--- NOTE | 2024-12-25 15:36 | AM.OFFVISNUR ---
Vital Signs 12/25/24 15:39 Height 5 ft 9 in Weight 97.069 kg BMI 31.6 BP 122/70 Pulse 86 Pulse Oximetry (%) 98 Intake Visit Reasons: injection appt at 4:30pm Allergies No Known Allergies Allergy (Verified 12/25/24 15:40) Nursing Note Cisco is here for his 4 week Sublocade injection. Cisco is alert, oriented and cooperative with care. He reported that he was finally able to fill the RX for the Naloxegol and that it seems to be improving his constipation. Cisco did report mild symptoms over the past week that were noticable not worth, taking the films over. He was reminded to call the office if any of his symptoms become more bothersome. Cisco was concerned over the copay bill that he was getting for his injections recently, -insupport co-pay infomration given, he signed up on the spot, TW will call his specialty pharmacy and arrange if possible. Follow up sceduled in 4 weeks. Coding
[2024-12-25 15:39] VITALS: BP 122/70; PULSE 86; O2SAT 98; BMI 31.6
--- OUTSIDE RECORDS SUMMARY | 2024-12-25 15:56 | XMS_ITS | Clinical Summary ---
Author Organization [facility] Address [address] [place] [address], [address] Care Team Providers Care Packing Shed Supervisor Name Role Phone Unavailable Primary Care Provider Unavailabl e Social History Tobacco Use Types Packs/Day Years Used Date Smoking Tobacco: Never Assessed Sex and Gender Information Value Date Recorded Sex Assigned at Not on file Gender Identity Not on file Sexual Orientation Not on file Plan of Treatment Not on file
--- OUTSIDE RECORDS SUMMARY | 2024-12-25 15:56 | XMS_ITS | Clinical Summary ---
Author Organization [facility] Address [address] [place] [address] Care Team Providers Care Cellar Supervisor Name Role Phone Terry Parr NP Primary [...] (obstructive sleep apnea) 11/11/2021 Overview (04/30/2022): PSG [place] 06/20/2012 (wt 210 lbs) Mild AHI 8, [...] continue CPAP at current settings. Smoking cessation. [facility] documentation. Assessment & Plan (03/02/2022 8:11 PM [...] is willing to continue CPAP. Reviewed [employer] documentation Assessment & Plan (12/01/2021 12:09 PM [...] sleep study for night of 11/29/2021 through [facility]. He agrees to proceed, submitted prior authorization [...] incision and drainage. Patient does have a director of officiating and will contact them for an appointment. [...] of depression. Currently working with Clinton at [facility] in [place], [place]. In remission on suboxone. Assessment & [...] would like to stay out of the [facility] as he knows he will be [...] 19, 2019. Patient has checked himself into [facility] and is very concerned about his [...] in his detox. The patient, paperwork from [facility] was supposed to be sent to the [...] 19, 2019. Patient has checked himself into [facility] and is very concerned about his [...] in his detox. The patient, paperwork from [facility] was supposed to be sent to [...] expected week of 02/03 Completed treatement at [facility]. Assessment & Plan (08/05/2020 5:26 PM EDT): [place], advised follow-up with [facility] regarding this for further treatment Assessment & [...] bottle of medication, and since being in [facility] he has not received any of [...] bottle of medication, and since being in [facility] he has not received any of [...] new psychiatrist that patient states is from [facility] in [place], [place]. It is unclear if patient means [facility], as this office does have a [place] location. An Internet search did not reveal location for a [employer]. Patient was prescribed a 30-day supply of [...] new psychiatrist that patient states is from [facility] in [place], [place]. It is unclear if patient means [facility], as this office does have a [place] location. An Internet search did not reveal a was for location for a [employer]. Patient was prescribed a 30-day supply of [...] COVID-19. Patient is unable to present to [place] but will seek testing at local pharmacy. [...] plan. PLAN -After discussion patient determined that [facility] emergency department would be the best location for patient given patient's home location. This TEACHING ARTIST called over report to ED, also updated [...] He states that he initially presented to [facility] was prescribed an oral antibiotic. He cannot recall the name of this antibiotic and he never picked up the antibiotic. Patient entered [facility] on Thursday 03/22 to undergo treatment [...] He states that he initially presented to [facility] was prescribed an oral antibiotic. He cannot recall the name of this antibiotic and he never picked up the antibiotic. Patient entered [facility] on Thursday 03/22 to undergo treatment for his polysubstance abuse. He was sent from [facility] with recovery due to to his [...] was such that at a visit to [facility] he required Mckinney catheter placement. Per urology's [...] was such that at a visit to [place] he required Mckinney catheter placement. Per urology's [...] to obtain a psychiatric consult from [facility] to assist with medication management that I would then manage with their assistance. In the meantime also try to get him into [place] or other local agencies, but unlikely to be able to see a new prescriber for several months and I do not think we want to wait that long to start treating him. Call was made to [facility] to try to facilitate this process. We will try increasing the Cymbalta as he has had some luck with that medication Encounters Date Type Department Care Team Description 11/15/2024 2:41 PM EDT - 11/15/2024 11:59 PM EDT Hospital Encounter [facility] [address] [place] [address] [phone] Cardiovascular Specialist: Mary Peterson PA MICHELLE (obstructive sleep apnea) (Primary Dx) Discharge Disposition: Home or Self Care () 11/08/2024 Telephone [facility] [address] [place] [phone] Cardiovascular Specialist: Holly Villa PAC Appt Request - New [...] history exists Alcohol/Substance Use Screening Completed 5 Goals Goal Patient Goal Type Associated Problems Recent Progress Patient-Stated? Author Autogenera ricarda Goal Care Plan Autogenerated Problem No Odalis Solano Procedures * Due to [place] state law, this organization might not be sharing negative HIV tests. 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
--- OUTSIDE RECORDS SUMMARY | 2024-12-25 15:56 | XMS_ITS | Clinical Summary ---
Author Organization [facility] Address [address] [place] [address] Care Team Providers Care Divemaster Name Role Phone Unknown Pcp, Non Rmg [...] Hepatitis C Screening Completed 12/14/2018 HPV Vaccine (No Doses Required) Completed Hep A Aged Out No longer eligi ble based on patient's age to complete this topic Hib Aged Out No longer eligi ble based on patient's age to complete this topic Meningococcal ACWY Aged Out No longer eligible based on patient's age to complete this topic Pneumococcal Aged Out No longer eligi ble based on patient's age to complete this topic Insurance ROSSANA WADE [id number] [facility] [email or web address] DIRECT (NETWORK COMMERCIAL-OUT OF NETWORK) * Guarantor: [id number] [employer] Account Type Relation to Patient Date of Phone Billing Address Worker's Comp [address] [place] [address] WORKERS COMPENSATION * Guarantor: [id number] [employer] Account Type Relation to Patient Date of Phone Billing Address [employer] Comp [address] [place] [address] WORKERS COMPENSATION * Guarantor: EMELY BASILIO Account Type Relation to Patient Date of Phone Billing Address [employer] [address] [place] [address] Care Teams Divemaster Relationship Specialty Start Date End Date Unknown Pcp, Non Rmg PCP - General 05/18/19
== END 2024-12-25 16:09 | disposition home or self-care (01) ==
LOC: HO.HCC 15:27
DX: F11.21 Opioid dependence, in remission (principal)

== ENCOUNTER → 2024-12-25 15:27 | Outpatient (BNVA) | payer OTHER, SELFPAY | DX: F11.21 Opioid dependence, in remission (principal) | CPT/HCPCS: 96372; Q9992 ==

== ENCOUNTER 2025-01-22 16:06 | Outpatient (AMB) | payer OTHER, SELFPAY ==
--- OUTSIDE RECORDS SUMMARY | 2025-01-18 23:59 | XMS_ITS | Continuity of Care Document ---
Author Organization [facility] Address [address] [place] [address]- Care Team Providers Care Photograph Mounter Name Role Phone Kirk WARE, Apryl Camacho Primary Care Physician Encounter [facility] Date(s): 12/19/24 - 01/18/25 [facility] [address] [place] [address]- Encounter Type: Triage Allergies, Adverse Reactions, Alerts [...] opioid drug. Start Date: 04/19/24 Status: Ordered Medication Dispense Status: Completed Total Allowed Fills: 1 Fills Dispensed: 0 atorvastatin 40 mg oral tablet 1 tablet = 40 mg, By Mouth, Daily, # 90 tablet, 3 Refills, Maintenance, 07/16/24 4:44:00 PM EST, Tablet, [facility]/pharmacy #[id number], Partial fill upon patient request if the prescription is for a schedule II opioid drug., 176, cm, 07/16/24 16:26:00 EST, Height, 90.8, kg, 07/16/24 16:26:00 EST, Dry Weight Start Date: 07/16/24 Status: Ordered Medication Dispense Status: Completed Quantity: 90.0 Unit: tablet Total Allowed Fills: 4 Fills Dispensed: 0 bisacodyl 10 mg rectal suppository 1 supp, Rectally, Daily, PRN NEEDED FOR CONSTIPATION, # 10 supp, 0 Refills, Maintenance, 12/23/24 8:02:00 AM EDT, [id number], 176, cm, 11/26/24 8:17:00 EDT, Height, 90.8, kg, 07/16/24 16:26:00 EST, Dry Weight Start Date: 12/23/24 Status: Ordered Medication Dispense Status: Completed Quantity: 10.0 Unit: supp Total Allowed Fills: 1 Fills Dispensed: 0 busPIRone 10 mg oral tablet 30 mg, 3, tablet, 540 each, 0 Refill(s), TAKE 2 TABLETS BY MOUTH 3 TIMES DAILY, Refills 0, :13:00 PM EST, Partial fill upon patient request if the prescription is for a schedule II opioid drug. Start Date: 04/19/24 Status: Ordered Medication Dispense Status: Completed Total Allowed Fills: 1 Fills Dispensed: 0 cetirizine 10 mg oral tablet 1 tablet = 10 mg, By Mouth, Daily, # 30 tablet, 0 Refills, Maintenance, 04/19/24 3:29:00 PM EST, Tablet, [facility]/pharmacy #[id number], Partial fill upon patient request if the prescription is for a schedule IIopioid drug., 176, cm, 04/19/24 14:59:00 EST, Height, 84, kg, 12/07/23 0:07:00 EDT, Dry Weight Start Date: 04/19/24 Status: Ordered Medication Dispense Status: Completed Quantity: 30.0 Unit: tablet Total Allowed Fills: 1 Fills Dispensed: 0 Indications: Allergic rhinitis, unspecified; Clonidine = 0.2 mg, By Mouth, 3 times a day, 0 Refills, Maintenance, 9/29/17 6:16:57 PM EDT Start Date: 02/17/17 Status: Ordered Medication Dispense Status: Completed Total Allowed Fills: 1 Fills Dispensed: 0 eszopiclone 2 mg oral tablet 15 each, 0 Refill(s), TAKE 1 TABLET BY MOUTH AT BEDTIME NEEDED FOR SLEEP, 0 Refills, 04/19/24 3:13:00 PM EST, Partial fill upon patient request if the prescription is for a schedule II opioid drug. Start Date: 04/19/24 Status: Ordered Medication Dispense Status: Completed Total Allowed Fills: 1 Fills Dispensed: 0 fluticasone 50 mcg/inh nasal spray 1 sprays = 50 mcg, Nares, Both, 2 times a day, # 16 Gm, 0 Refills, Maintenance, 04/19/24 3:29:00 PMEST, [place], [facility]/pharmacy #[id number], Partial fill upon patient request if the prescription is for a schedule II opioid drug., 1 sprays Nares, Both 2 times a day, 176, cm, 04/19/24 14:59:00 EST, Height, 84, kg, 12/07/23 0:07:00 EDT, Dry Weight Start Date: 04/19/24 Status: Ordered Medication Dispense Status: Completed Quantity: 16.0 Unit: g Total Allowed Fills: 1 Fills Dispensed: 0 Indications: Allergic rhinitis, unspecified; magnesium citrate 8.85% oral liquid 150 mL = 8.725 Gm, By Mouth, Once, If after 2 hours there is no response, take other half, # 300 mL, 0 Refills, Soft Stop, 07/17/24 9:00:00 AM EST, Liquid, [facility]/pharmacy #[id number], Partial fill upon patient request if the prescription is for a schedule II opioid drug., 150 mL By Mouth Once,Instr:If after2 hours there is no response, take other half, 176, cm, 07/16/24 16:26:00 EST, Height, 90.8, kg, 07/16/24 16:26:00 EST, Dry Weight Start Date: 07/17/24 Status: Ordered Medication Dispense Status: Completed Quantity: 300.0 Unit: mL Total Allowed Fills: 1 Fills Dispensed: 0 MiraLax oral powder for reconstitution See Instructions, 3 and 2 days before colonoscopy 17x2 Gm (mixed with water) 3 times a day., # 238 Gm, 0 Refills, Maintenance, 11/26/24 8:34:00 AM EDT, [facility]/pharmacy #[id number], Partial fill upon patient request if the prescription is for a schedule II opioid drug., 3 and 2 days before colonoscopy 17x2 Gm (mixed with water) 3 times a day., 176, cm, 11/26/24 8:17:00 EDT, Height, 90.8, kg, 07/16/24 16:26:00 EST, Dry Weight Start Date: 11/26/24 Status: Ordered Medication Dispense Status: Completed Quantity: 238.0 Unit: g Total Allowed Fills: 1 Fills Dispensed: 0 MiraLax oral powder for reconstitution = 17 Gm, By Mouth, Daily at bedtime, (dissolve in water or juice)\, # 527 Gm, 2 Refills, Maintenance, 11/26/24 8:37:00 AM EDT, [facility]/pharmacy #[id number], Partial fill upon patient request if the prescription is for a schedule II opioid drug., 17 Gm By Mouth Daily at bedtime,Instr:(dissolve in water or juice)\, 176, cm, 11/26/24 8:17:00 EDT, Height, 90.8, kg, 07/16/24 16:26:00 EST, Dry Weight Start Date: 11/26/24 Status: Ordered Medication Dispense Status: Completed Quantity: 527.0 Unit: g Total Allowed Fills: 3 Fills Dispensed: 0 Indications: Constipation, unspecified; nicotine 2 mg oral transmucosal lozenge 1 [...] Date: 04/19/24 Stop Date: 09/05/25 Status: Ordered Medication Dispense Status: Completed Quantity: 360.0 Unit: lozenge Total Allowed Fills: 12 Fills Dispensed: 0 Indications: Nicotine dependence, cigarettes, uncomplicated; PEG-[id number] with Electrolytes Lemon-Jamul (Eqv-NuLYTELY) oral powder for reconstitution 240 mL, By Mouth, Every 10 minutes, Stay on clear liquid diet ALL DAY the day BEFORE the procedure.Drink half the dose the evening before, and the other half early in the morning on the day of the procedure., # 4,000 mL, 0 Refills, Maintenance, 11/26/24 8:34:00 AM EDT, REC Powder, [facility]/pharmacy #[id number], Partial fill upon patient request if the prescription is for a schedule II opioid drug., 240 mL ByMouth Every 10 minutes,Instr:Stay on clear liquid diet ALL DAY the day BEFORE the procedure. Drink half the dose the evening before, and the other half early in the morning on the day of the procedure., 176, cm, 11/26/24 8:17:00 EDT, Height, 90.8, kg, 07/16/24 16:26:00 EST, Dry Weight Start Date: 11/26/24 Status: Ordered Medication Dispense Status: Completed Quantity: 4000.0 Unit: mL Total Allowed Fills: 1 Fills Dispensed: 0 Prilosec 20 mg oral enteric coated capsule 1 capsule = 20 mg, By Mouth, Daily, 0 Refills, Maintenance, 02/17/17 6:17:16 PM EDT Start Date: 02/17/17 Status: Ordered Medication Dispense Status: Completed Total Allowed Fills: 1 Fills Dispensed: 0 senna - oral tablet 2 tablet, By Mouth, Daily at bedtime, PRN for constipation, # 60 tablet, 0 Refills, Maintenance, 07/17/24 8:59:00 AM EST, Tablet, [facility]/pharmacy #[id number], Partial fill upon patient request if the prescription is for a schedule II opioid drug., 176, cm, 07/16/24 16:26:00 EST, Height, 90.8, kg, 07/16/24 16: 26:00 EST, Dry Weight Start Date: 07/17/24 Status: Ordered Medication Dispense Status: Completed Quantity: 60.0 Unit: tablet Total Allowed Fills: 1 Fills Dispensed: 0 Sublocade 100 mg/0.5 mL subcutaneous solution, extended release = 100 mg, Subcutaneous Infusion, Every 28 days, 0 Refills, Maintenance, 04/19/24 4:20:00 PM EST, Partial fill upon patient request if the prescription is for a schedule II opioid drug. Start Date: 04/19/24 Status: Ordered Medication Dispense Status: Completed Total Allowed Fills: 1 Fills Dispensed: 0 Problem List Condition Confirmation Course Effective Dates [...] Personnel Name: Kirk WARE, Apryl Camacho Position: [facility] Physician - Primary Care Member Role: PCP Address: [address] [place] [address] Telecom: Care Team Related Persons Name: LORENZO MEMBRENO Insurance Providers Guarantor name: JAYLA MEMBRENO [facility] Information #: 1 [facility] Payer Identifier: SHELBIE Member Number: [id number] Group Number: [id number] Subscriber Identifier: NA Relationship to Subscriber: self Coverage Type: Managed Care (Private) Coverage Verification Date: SHELBIE Telecom: SHELBIE Address: NA
--- NOTE | 2025-01-22 16:15 | AM.OFFVISNUR ---
Vital Signs 01/22/25 16:26 BP 116/74 Pulse 92 Pulse Oximetry (%) 98 Intake Visit Reasons: Injection Allergies No Known Allergies Allergy (Verified 12/25/24 15:40) Nursing Note . Cisco is here for his 4 week Sublocade injection. Cisco is alert, oriented, cooperative with care and presents with appropriate affect. Cisco denies any negative symptoms associated with the injection. He reports improved bowel movements with continuation of Movantik He is still getting billed from [employer] over Sublocade co-pay. TW will follow up with them again. Sublocade emergency ID wallet card provided. Follow up made in four weeks for next injection. Office Meds Sublocade 100 mg/0.5 mL solution,extended release subcutaneous syringe Performing Provider: Kimberly Eaton MD Performing Location: [facility] Administered by: Adelaide Ruggiero RN on 01/22/25 16:47 Dose Route Admin Location Dispensed Lot Number Expiration Date [facility] Dry Plasterer Helper 100 mg subcut LLQ 0.5 mL [id number] 10/19/25 [address]-7 [employer] Total Dispensed Waste 0.5 mL 0 % Comments: Pt is present for 100 mg Sublocade injection, pt denies complications with previous injections and tolerated injection well. Pt educated on signs and symptoms of infection at the injection site, urged to call [facility] with any questions or concerns. Follow up appointment made in 4 weeks for next injection. Assessment & Plan Assessment & Plan Orders: Orders AMB Buprenorphine Injection - Patient Supplied Today F11.21 - Opioid dependence, in remission Coding
[2025-01-22 16:26] VITALS: BP 116/74; PULSE 92; O2SAT 98
--- OUTSIDE RECORDS SUMMARY | 2025-01-22 17:50 | XMS_ITS | Clinical Summary ---
Author Organization [facility] Address [address] [place] [address] Care Team Providers Care Supervisor [employer]ope Fabrication Name Role Phone Unknown Pcp, Non Rmg [...] - 19+ 3-dose series) 2001 COVID-19 Vaccine (1 - 2023-2 5 season) 2025 Influenza (#1) 2025 04/18/2016, 05/26/2015 Zoster (Shingrix) [...] to complete this topic Insurance ROSSANA WADE [id number] [facility] [employer] (NETWORK COMMERCIAL-OUT OF NETWORK) * Guarantor: [id number] [employer] Account Type Relation to Patient Date of Phone Billing Address [employer] [address] [place] [address] WORKERS COMPENSATION * Guarantor: [id number] [employer] Account Type Relation to Patient Date of Phone Billing Address [employer] [address] [place] [address] [employer]ERS [employer]ENSATION * Guarantor: EMELY BASILIO Account Type Relation to Patient Date of Phone Billing Address [employer] [address] [place] [address] Care Teams Supervisor Wire Rope Fabrication Relationship Specialty Start Date End Date Unknown Pcp, Non Rmg PCP - General 05/18/19
--- OUTSIDE RECORDS SUMMARY | 2025-01-22 17:50 | XMS_ITS | Clinical Summary ---
Author Organization [facility] Address [address] [place] [address] Care Team Providers Care Respiratory Care Technician Name Role Phone Terry Parr NP Primary [...] (obstructive sleep apnea) 11/11/2021 Overview (04/30/2022): [facility] 06/20/2012 (wt 210 lbs) Mild AHI 8, [...] continue CPAP at current settings. Smoking cessation. [facility] documentation. Assessment & Plan (03/02/2022 8:11 PM [...] is willing to continue CPAP. Reviewed [employer] documentation Assessment & Plan (12/01/2021 12:09 PM [...] sleep study for night of 11/29/2021 through [facility]. He agrees to proceed, submitted prior authorization [...] incision and drainage. Patient does have a cloth packer and will contact them for an appointment. [...] of depression. Currently working with [place] at [facility] in [place], [place]. In remission on suboxone. Assessment & [...] would like to stay out of the [facility] as he knows he will be [...] 19, 2019. Patient has checked himself into [facility] and is very concerned about his [...] in his detox. The patient, paperwork from [facility] was supposed to be sent to the [...] 19, 2019. Patient has checked himself into [facility] and is very concerned about his [...] in his detox. The patient, paperwork from [facility] was supposed to be sent to [...] expected week of 02/03 [facility]. Assessment & Plan (08/05/2020 5:26 PM EDT): [place], advised follow-up with [facility] regarding this for further treatment [...] bottle of medication, and since being in [facility] he has not received any [...] bottle of medication, and since being in [facility] he has not received any [...] new psychiatrist that patient states is from [email or web address] in [place], [place]. It is unclear if patient means [facility], as this office does have a [place] location. An Internet search did not reveal location for a [facility]. Patient was prescribed a 30-day supply of [...] new psychiatrist that patient states is from [email or web address] in [place], [place]. It is unclear if patient means [facility], as this office does have a [place] location. An Internet search did not reveal a was for location for a [facility]. Patient was prescribed a 30-day supply of [...] COVID-19. Patient is unable to present to [place] but will seek testing at local pharmacy. [...] plan. PLAN -After discussion patient determined that [facility] emergency department would be the best location for patient given patient's home location. This MANAGER OF LEARNING called over report to ED, also updated [...] He states that he initially presented to [facility] was prescribed an oral antibiotic. He cannot recall the name of this antibiotic and he never picked up the antibiotic. Patient entered [facility] on Thursday 03/22 to undergo treatment [...] He states that he initially presented to [facility] was prescribed an oral antibiotic. He cannot recall the name of this antibiotic and he never picked up the antibiotic. Patient entered [facility] on Thursday 03/22 to undergo treatment for his polysubstance abuse. [facility] due to to his symptoms [...] was such that at a visit to [facility] he required Mckinney catheter placement. Per urology's [...] was such that at a visit to [facility] he required Mckinney catheter placement. Per urology's [...] meantime also try to get him into [place] or other local agencies, but unlikely to [...] - 11/15/2024 11:59 PM EDT Hospital Encounter [facility] [address] [place] [address] [phone] [employer] Business Analyst: Mary Peterson PA MICHELLE (obstructive sleep apnea) (Primary Dx) Discharge Disposition: Home or Self Care () 11/08/2024 Telephone [facility] [address] [place] [phone] [employer] Business Analyst: Holly Villa PAC Appt Request - New [...] Years) (1 of 2 - PCV) 2001 Depression Screening and Follow-Up 05/22/20242022 [employer] Meghann ua Screening 05/22/2024 COVID-19 Vaccine (4 - 2024-2 6 season) 2025 05/21/2021, 10/28/2020, 09/24/2020 Influenza Vaccine (#1) 2025 , 02/01/2019, 04/18/2016, Additional history exists Diabetes Screening 02/06/2026 02/06/2023, 0 11/01/2022, 11/01/2022, Additional history exists DTaP,Tdap,and Td Vaccines (4 [...] No Odalis Solano Procedures * Due to [place] state law, this organization might not be sharing negative HIV tests. Procedure Name Priority Date/Time Associated Diagnosis Comments HEMOGLOBIN A1C Routine 02/06/2023 10:01 AM EDT Preventative health care CD4 COUNTS Routine 01/03/2013 5:00 AM EDT from Last 3 Months or Most Recently Relevant to Health Maintenance Results * Due to [place] state law, this organization might not be sharing negative HIV tests. * (ABNORMAL) Hemoglobin A1c (02/06/2023 10:01 AM EDT) Hemoglobin A1C 5.8(H) <5.7 % of total Hgb 02/06/2023 9:40 PM EDT [employer] Comment: For someone without known diabetes, a hemoglobin A1c value between 5.7% and 6.4% is consistent with prediabetes and should be confirmed with a follow-up test. For someone with known diabetes, a value <7% indicates that their diabetes is well controlled. A1c targets should be individualized based on duration of diabetes, age, comorbid conditions, and other considerations. This assay result is consistent with an increased risk of diabetes. Currently, no consensus exists regarding use of hemoglobin A1c for diagnosis of diabetes for children. eAG (MG/DL) 120 mg/dL 02/06/2023 9:40 PM EDT [facility] eAG (MMOL/L) 6.6 mmol/L 02/06/2023 9:40 PM EDT [facility] Blood Structure of peripheral vein / Unknown Venipuncture / Unknown 02/06/2023 10:01 AM EDT 02/06/2023 10:01 AM EDT Narrative TOSHA IBARRA - 02/06/2023 9:40 PM EDT [facility] Received Date: Terry Parr MANAGER OF LEARNING LAB BLOOD ORDERABLES Final Result TOSHA IBARRA [address], [place] [address], [facility] [address], [place] [address], from Last 3 Months or Most Recently [...] Agents on File Name Relationship Healthcare Agent [facility] Communication Bhavik [facility] Agent Care Teams Respiratory Care Technician Relationship Specialty Start Date End Date Terry Parr NP [address] [place] [id number] PCP - General Family Medicine 08/24/23
--- OUTSIDE RECORDS SUMMARY | 2025-01-22 17:50 | XMS_ITS | Clinical Summary ---
Author Organization [facility] Address [address] [place] [address], [address] Care Team Providers Care Rollway Man Name Role Phone Unavailable Primary Care Provider Unavailabl e Social History Tobacco Use Types Packs/Day Years Used Date Smoking Tobacco: Never Assessed Sex and Gender Information Value Date Recorded Sex Assigned at Not on file Gender Identity Not on file Sexual Orientation Not on file Plan of Treatment Not on file
== END 2025-01-22 16:45 ==
LOC: HO.HCC 16:06
DX: F11.21 Opioid dependence, in remission (principal)

== ENCOUNTER → 2025-01-22 16:06 | Outpatient (BNVA) | payer OTHER, SELFPAY | DX: F11.21 Opioid dependence, in remission (principal) | CPT/HCPCS: 96372; Q9992 ==

== ENCOUNTER 2025-02-18 16:27 | Outpatient (AMB) | payer OTHER, SELFPAY ==
--- NOTE | 2025-02-18 16:36 | AM.OFFVISNUR ---
Vital Signs 02/18/25 16:37 BP 116/76 Pulse 114 H Pulse Oximetry (%) 96 Intake Visit Reasons: Injection Allergies No Known Allergies Allergy (Verified 02/18/25 16:39) Nursing Note Cisco is here for his 4 week Sublocade injection. Cisco is alert, oriented, cooperative with care and presents with appropriate affect. Cisco denies any negative symptoms associated with the injection and is stable in recovery. He reports somewhat improved bowel movements with continuation of Movantik though is still relying on Dulcolax about 1/2 of the week for relief. No other negative symptoms reported with injection. Follow up in 4 weeks for next injection. Office Meds Sublocade 100 mg/0.5 mL solution,extended release subcutaneous syringe Performing Provider: Kimberly Eaton MD Performing Location: [facility] Administered by: Adelaide Ruggiero RN on 02/18/25 16:53 Dose Route Admin Location Dispensed Lot Number Expiration Date [facility] Library Manager 100 mg subcut LUG 0.5 mL [id number] 10/19/25 [address]-3 [employer] Total Dispensed Waste 0.5 mL 0 % Comments: Pt is present for 100 mg Sublocade injection, pt denies complications with previous injections and tolerated injection well. Pt educated on signs and symptoms of infection at the injection site, urged to call [facility] with any questions or concerns. Follow up appointment made in 4 weeks for next injection. Assessment & Plan Assessment & Plan Orders: Orders AMB Buprenorphine Injection - Patient Supplied Today F11.21 - Opioid dependence, in remission Coding
[2025-02-18 16:37] VITALS: BP 116/76; PULSE 114; O2SAT 96
--- OUTSIDE RECORDS SUMMARY | 2025-02-18 17:14 | XMS_ITS | Clinical Summary ---
Author Organization [facility] Address [address] [place] [address] Care Team Providers Care Shoe Cementer Name Role Phone Terry Parr NP Primary [...] (obstructive sleep apnea) 11/11/2021 Overview (04/30/2022): PSG [place] 06/20/2012 (wt 210 lbs) Mild AHI 8, [...] continue CPAP at current settings. Smoking cessation. [facility] documentation. Assessment & Plan (03/02/2022 8:11 PM [...] is willing to continue CPAP. Reviewed [employer] documentation Assessment & Plan (12/01/2021 12:09 PM [...] sleep study for night of 11/29/2021 through [facility]. He agrees to proceed, submitted prior authorization [...] incision and drainage. Patient does have a flatbed stitcher and will contact them for an appointment. [...] of depression. Currently working with Clinton at [facility] in [place], [place]. In remission on suboxone. Assessment & [...] would like to stay out of the [facility] as he knows he will be [...] 19, 2019. Patient has checked himself into [facility] and is very concerned about his [...] in his detox. The patient, paperwork from [employer] was supposed to be sent to the [...] 19, 2019. Patient has checked himself into [facility] and is very concerned about his [...] in his detox. The patient, paperwork from [facility] was supposed to be sent to [...] expected week of 02/03 Com[facility]. Assessment & Plan (08/05/2020 5:26 PM EDT): [place], advised follow-up with [facility] regarding this for further treatment Assessment [...] bottle of medication, and since being in [facility] he has not received any of [...] bottle of medication, and since being in [place] [facility] he has not received any of [...] new psychiatrist that patient states is from [employer] [facility] in [place], [place]. It is unclear if patient means [facility] [employer] [facility], as this office does have a [place] location. An Internet search did not reveal location for a [employer]. Patient was prescribed a 30-day supply of [...] new psychiatrist that patient states is from [employer] [facility] in [place], [place]. It is unclear if patient means [facility] [employer] [facility], as this office does have a [place] location. An Internet search did not reveal a was for location for a [employer]. Patient was prescribed a 30-day supply of [...] COVID-19. Patient is unable to present to [place] but will seek testing at local pharmacy. [...] -After discussion patient determined that [facility] emergency department would be the best location for patient given patient's home location. This LEGAL ADVISOR called over report to ED, also updated [...] He states that he initially presented to [facility] was prescribed an oral antibiotic. He cannot recall the name of this antibiotic and he never picked up the antibiotic. Patient entered [facility] on Thursday 03/22 to undergo treatment [...] He states that he initially presented to [facility] was prescribed an oral antibiotic. He cannot recall the name of this antibiotic and he never picked up the antibiotic. Patient entered [facility] on Thursday 03/22 to undergo treatment for his polysubstance abuse. [facility] due to to his [...] was such that at a visit to [place] he required Mckinney catheter placement. Per urology's [...] was such that at a visit to [place] he required Mckinney catheter placement. Per urology's [...] try to obtain a psychiatric consult from [facility] to assist with medication management that I would then manage with their assistance. In the meantime also try to get him into [place] or other local agencies, but unlikely to be able to see a new prescriber for several months and I do not think we want to wait that long to start treating him. Call was made to [facility] to try to facilitate this process. [...] Drivers of Health Meghann ual Screening 05/22/2024 COVID-19 Vaccine (4 - 2024-2 [...] No Odalis Solano Procedures * Due to [place] law, this organization might not be sharing negative HIV tests. Procedure Name Priority Date/Time Associated Diagnosis Comments HEMOGLOBIN A1C Routine 02/06/2023 10:01 AM EDT Preventative health care CD4 COUNTS Routine 01/03/2013 5:00 AM EDT from Last 3 Months or Most Recently Relevant to Health Maintenance Results * Due to [place] law, this organization might not be sharing negative HIV tests. * (ABNORMAL) Hemoglobin A1c (02/06/2023 10:01 AM EDT) Hemoglobin A1C 5.8(H) <5.7 % of total Hgb 02/06/2023 9:40 PM EDT [employer] Comment: For someone without known diabetes, a [...] (MG/DL) 120 mg/dL 02/06/2023 9:40 PM EDT [facility] eAG (MMOL/L) 6.6 mmol/L 02/06/2023 9:40 PM EDT [facility] Blood Structure of peripheral vein / Unknown Venipuncture / Unknown 02/06/2023 10:01 AM EDT 02/06/2023 10:01 AM EDT Narrative TOSHA IBARRA - 02/06/2023 9:40 PM EDT [facility] Received Date: Terry Parr LEGAL ADVISOR LAB BLOOD ORDERABLES Final Result TOSHA IBARRA [address], [place] [address], [employer] [facility] [address], [place] [address], from Last 3 Months or Most Recently [...] on File Name Relationship Healthcare Agent [facility] Communication Bhavik Plascencia [facility] Health Care Agent Care Teams Shoe Cementer Relationship Specialty Start Date End Date Terry Parr NP [address] [place] [id number] PCP - General Family Medicine 08/24/23
--- OUTSIDE RECORDS SUMMARY | 2025-02-18 17:14 | XMS_ITS | Clinical Summary ---
Author Organization [facility] Address [address] [place] [address] Care Team Providers Care Car Framer Name Role Phone Unknown Pcp, Non Rmg [...] to complete this topic Insurance ROSSANA WADE [id number] [facility] [employer] DIRECT (NETWORK COMMERCIAL-OUT OF NETWORK) * Guarantor: [id number] [employer] Account Type Relation to Patient Date of Phone Billing Address Worker's Comp [address] [place] [address] [employer]ENSATION * Guarantor: [id number] [employer] Account Type Relation to Patient Date of Phone Billing Address Worker[employer] Comp [address] [place] [address] [employer] Care Teams Car Framer Relationship Specialty Start Date End Date Unknown Pcp, Non Rmg PCP - General 05/18/19
--- OUTSIDE RECORDS SUMMARY | 2025-02-18 17:14 | XMS_ITS | Clinical Summary ---
Author Organization [facility] Address [address] [place] [address], [address] Care Team Providers Care Die Designer Apprentice Name Role Phone Unavailable Primary Care Provider Unavailabl e Social History Tobacco Use Types Packs/Day Years Used Date Smoking Tobacco: Never Assessed Sex and Gender Information Value Date Recorded Sex Assigned at Not on file Gender Identity Not on file Sexual Orientation Not on file Plan of Treatment Not on file
== END 2025-02-18 17:11 | disposition home or self-care (01) ==
LOC: HO.HCC 16:27
DX: F11.21 Opioid dependence, in remission (principal)

== ENCOUNTER → 2025-02-18 16:27 | Outpatient (BNVA) | payer OTHER, SELFPAY | DX: F11.21 Opioid dependence, in remission (principal) | CPT/HCPCS: 96372; Q9992 ==

== ENCOUNTER 2025-03-24 14:50 | Outpatient (AMB) | payer OTHER, SELFPAY ==
--- NOTE | 2025-03-24 15:15 | AM.OFFVISNUR ---
Vital Signs 03/24/25 15:18 BP 122/70 Pulse 92 Pulse Oximetry (%) 96 Intake Visit Reasons: inj. 4.00 pm Allergies No Known Allergies Allergy (Verified 03/24/25 15:18) Nursing Note Cisco is here for his 4 week Sublocade injection. Cisco is alert, oriented, cooperative with care and presents with appropriate affect. Cisco denies any negative symptoms associated with the injection and is stable in recovery. Cisco is a couple days late for injection due to [facility] error. Cisco reports his 6 year sobriety anniversary was on Thursday 03/22. Follow up in 4 weeks for the next injection. Office Meds Sublocade 100 mg/0.5 mL solution,extended release subcutaneous syringe Performing Provider: Kimberly Eaton MD Performing Location: [facility] Administered by: Adelaide Ruggiero RN on 03/24/25 15:38 Dose Route Admin Location Dispensed Lot Number Expiration Date [facility] 100 mg subcut LLQ 0.5 mL [id number] 12/19/25 [address]-5 [employer] Total Dispensed Waste 0.5 mL 0 % Comments: Pt is present for 100 mg Sublocade injection, pt denies complications with previous injections and tolerated injection well. Pt educated on signs and symptoms of infection at the injection site, urged to call [facility] with any questions or concerns. Follow up appointment made in 4 weeks for next injection. Assessment & Plan Assessment & Plan Orders: Orders AMB Buprenorphine Injection - Patient Supplied Today F11.21 - Opioid dependence, in remission Coding
[2025-03-24 15:18] VITALS: BP 122/70; PULSE 92; O2SAT 96
--- OUTSIDE RECORDS SUMMARY | 2025-03-24 16:18 | XMS_ITS | Clinical Summary ---
Author Organization [facility] Address [address] [place] [address] Care Team Providers Care Envelope Adjuster Name Role Phone Terry Parr NP Primary [...] (obstructive sleep apnea) 11/11/2021 Overview (04/30/2022): PS[facility] [place] 06/20/2012 (wt 210 lbs) Mild AHI 8, [...] continue CPAP at current settings. Smoking cessation. [employer] documentation. Assessment & Plan (03/02/2022 8:11 PM [...] is willing to continue CPAP. Reviewed [employer] documentation Assessment & Plan (12/01/2021 12:09 PM [...] study for night of 11/29/2021 through [facility]. He agrees to proceed, submitted prior authorization [...] incision and drainage. Patient does have a extension specialist and will contact them for an appointment. [...] of depression. Currently working with Clinton at [facility] in [place], [place]. In remission on suboxone. Assessment & [...] would like to stay out of the [facility] as he knows he will be [...] 19, 2019. Patient has checked himself into [facility] and is very concerned about his [...] in his detox. The patient, paperwork from [employer] was supposed to be sent to the [...] 19, 2019. Patient has checked himself into [facility] and is very concerned about his [...] in his detox. The patient, paperwork from [facility] was supposed to be sent to [...] expected week of 02/03 Completed treatement at [facility] ID [facility]. Assessment & Plan (08/05/2020 5:26 PM [...] bottle of medication, and since being in [facility] he has not received any of [...] bottle of medication, and since being in [facility] [facility] he has not received any of [...] new psychiatrist that patient states is from [employer] [facility] in [place], [place]. It is unclear if patient means M[facility]ie [facility], as this office does have a [place] location. An Internet search did not reveal location for a [facility]. Patient was prescribed a 30-day supply of [...] new psychiatrist that patient states is from [employer] [facility] in [place], [place]. It is unclear if patient means Mousie Oversi [facility], as this office does have a [place] location. An Internet search did not reveal a was for location for a O[facility]i. Patient was prescribed a 30-day supply of [...] COVID-19. Patient is unable to present to [place] but will seek testing at local pharmacy. [...] plan. PLAN -After discussion patient determined that [facility] emergency department would be the best location for patient given patient's home location. This SLIP LASTER called over report to ED, also updated [...] He states that he initially presented to [facility] was prescribed an oral antibiotic. He cannot recall the name of this antibiotic and he never picked up the antibiotic. Patient entered [facility] on Thursday 03/22 to undergo treatment [...] He states that he initially presented to [facility] was prescribed an oral antibiotic. He cannot recall the name of this antibiotic and he never picked up the antibiotic. Patient entered [facility] on Thursday 03/22 to undergo treatment for his polysubstance abuse. [facility] recovery due to to [...] was such that at a visit to [place] he required Mckinney catheter placement. Per urology's [...] was such that at a visit to [place] he required Mckinney catheter placement. Per urology's [...] to obtain a psychiatric consult from [facility] to assist with medication management that I would then manage with their assistance. In the meantime also try to get him into [place] or other local agencies, but unlikely to be able to see a new prescriber for several months and I do not think we want to wait that long to start treating him. Call was made to [facility] to try to facilitate this [...] - PCV) 2001 Depression Screening and Follow-Up 05/22/2024 Social Drivers of Health Meghann ual [...] No Odalis Solano Procedures * Due to [place] [employer] law, this organization might not be sharing negative HIV tests. Procedure Name Priority Date/Time Associated Diagnosis Comments HEMOGLOBIN A1C Routine 02/06/2023 10:01 AM EDT Preventative health care CD4 COUNTS Routine 01/03/2013 5:00 AM EDT from Last 3 Months or Most Recently Relevant to Health Maintenance Results * Due to [place] [employer] law, this organization might not be sharing negative HIV tests. * (ABNORMAL) Hemoglobin A1c (02/06/2023 10:01 AM EDT) Hemoglobin A1C 5.8(H) <5.7 % of total Hgb 02/06/2023 9:40 PM EDT [facility] [employer] Comment: For someone without known diabetes, a [...] (MG/DL) 120 mg/dL 02/06/2023 9:40 PM EDT [facility] [facility] eAG (MMOL/L) 6.6 mmol/L 02/06/2023 9:40 PM EDT [facility] Blood Structure of peripheral vein / Unknown Venipuncture / Unknown 02/06/2023 10:01 AM EDT 02/06/2023 10:01 AM EDT Narrative [facility] - 02/06/2023 9:40 PM EDT [facility] Received Date:[id number] Terry Parr SLIP LASTER LAB BLOOD ORDERABLES Final Result [facility] [address] [facility] [address], [place] [address], [facility] [address] [facility] [address], [place] [address], from Last 3 Months or Most Recently [...] Agents on File Name Relationship Healthcare Agent [facility] Communication Bhavik Garcia [facility] Care Agent Care Teams Envelope Adjuster Relationship Specialty Start Date End Date Terry Parr NP [address] [place] [id number] PCP - General Family Medicine 08/24/23
--- OUTSIDE RECORDS SUMMARY | 2025-03-24 16:18 | XMS_ITS | Clinical Summary ---
Author Organization [facility] Address [address] [place] [address] Care Team Providers Care Assembler Plastic Boat Name Role Phone Unknown Pcp, Non Rmg [...] 3-dose series) 2001 COVID-19 Vaccine ( - 2024-2 6 season) 2025 Influenza (#1) 2025 04/18/2016, 05/26/2015 [...] to complete this topic Insurance ROSSANA WADE [id number] [facility] DIRECT (NETWORK COMMERCIAL-OUT OF NETWORK) * Guarantor: [id number] [employer] Account Type Relation to Patient Date of Phone Billing Address Worker's Comp [address] [place] [address] [employer]ERS [employer] * Guarantor: [id number] [employer] Account Type Relation to Patient Date of Phone Billing Address Worker's Comp [address] [place] [address] [employer]ERS [employer]ENS[employer] * Guarantor: EMELY BASILIO Account Type Relation to Patient Date of Phone Billing Address [employer] [address] [place] [address] Care Teams Assembler Plastic Boat Relationship Specialty Start Date End Date Unknown Pcp, Non Rmg PCP - General 05/18/19
== END 2025-03-24 15:44 | disposition home or self-care (01) ==
LOC: HO.HCC 14:50
PROVIDERS: Visit Provider Clinical Nurse Specialist Psychiatric/Mental Health
DX: F11.21 Opioid dependence, in remission (principal)

== ENCOUNTER → 2025-03-24 14:50 | Outpatient (BNVA) | payer OTHER, SELFPAY | PROVIDERS: Visit Provider Clinical Nurse Specialist Psychiatric/Mental Health | DX: F11.21 Opioid dependence, in remission (principal); Z79.899 Other long term (current) drug therapy | CPT/HCPCS: 96372; Q9992 ==

== ENCOUNTER 2025-04-24 13:05 | Outpatient (AMB) | payer OTHER, SELFPAY ==
--- NOTE | 2025-04-24 07:51 | AM.OFFVISNUR ---
Vital Signs 04/24/25 13:11 BP 120/78 Pulse 84 Pulse Oximetry (%) 96 Intake Visit Reasons: Injection Allergies No Known Allergies Allergy (Verified 04/24/25 13:11) Nursing Note Cisco is here for his 4 week Sublocade 100 mg injection. Cisco is alert, oriented, cooperative with care and presents with appropriate affect. Cisco denies any negative symptoms associated with the injection and reports continued stability in recovery. Cisco has been out of work due to fracturing his rib a couple weeks back, hoping to be back to work within a couple weeks. Follow up in 4 weeks for next injection. Office Meds Sublocade 100 mg/0.5 mL solution,extended release subcutaneous syringe Performing Provider: Kimberly Eaton MD Performing Location: [facility] Administered by: Adelaide Ruggiero RN on 04/24/25 13:35 Dose Route Admin Location Dispensed Lot Number Expiration Date [facility] [employer] 100 mg subcut LUQ 0.5 mL [id number] 12/19/25 [address]-3 [employer] Total Dispensed Waste 0.5 mL 0 % Comments: Pt is present for 100 mg Sublocade injection, pt denies complications with previous injections and tolerated injection well. Pt educated on signs and symptoms of infection at the injection site, urged to call [facility] with any questions or concerns, pt verbalized understanding. Follow up appointment made in 4 weeks for next injection. Assessment & Plan Assessment & Plan Orders: Orders AMB Buprenorphine Injection - Patient Supplied Today F11.21 - Opioid dependence, in remission Coding
[2025-04-24 13:11] VITALS: BP 120/78; PULSE 84; O2SAT 96
== END 2025-04-24 13:39 | disposition home or self-care (01) ==
LOC: HO.HCC 13:05
DX: F11.21 Opioid dependence, in remission (principal)

== ENCOUNTER → 2025-04-24 13:05 | Outpatient (BNVA) | payer OTHER, SELFPAY | DX: F11.21 Opioid dependence, in remission (principal) | CPT/HCPCS: 96372; Q9992 ==